=== PATIENT | male | born 1950 | race Caucasian/White ===

== ENCOUNTER 2016-12-25 16:07 | Inpatient (IN) ==
[2016-12-25 17:38] LABS: Red Blood Count 2.75 M/mcL (4.19-5.50)
[2016-12-25 17:39] LABS: Hematocrit 28.5 % (37.5-50.1); Hemoglobin 9.5 g/dL (12.9-16.9); Mean Corpuscular HGB Conc 33.3 g/dL (31.6-35.5); Mean Corpuscular Hemoglobin 34.5 pg (28.0-33.3); Mean Corpuscular Volume 103.6 fL (83.0-100.0); Mean Platelet Volume 10.2 fL (9.4-12.4); Platelet Count 150 K/mcL (140-400); Red Cell Distribution Width 19.1 % (11.5-14.5)
[2016-12-25 17:50] LABS: BUN/Creatinine Ratio 13 (6-26); Blood Urea Nitrogen 10 mg/dL (8-26); Calcium 9.6 mg/dL (8.6-10.8); Carbon Dioxide 36 mEq/L (19-29); Chloride 91 mEq/L (98-109); Glucose 116 mg/dL (70-99); Osmolality,Calculated 284 (280-300); Potassium 3.4 mEq/L (3.5-4.5); Sodium 137 mEq/L (136-145); eGFR For African Americans > 60 (> 60); eGFR For Non-African Americans > 60 (> 60)
[2016-12-25 18:09] LABS: Lymphocytes # 0.6 K/mcL (0.6-4.6); Monocytes # 0.6 K/mcL (0.0-1.3); Neutrophils # 30.7 K/mcL (1.6-8.9)
[2016-12-25 18:10] LABS: Anisocytosis 1+ (Not Present); Platelet Estimate Normal (Normal)
[2016-12-25] MEDS ORDERED: Vancomycin 1,000 MG in D5% in Water 250 ML IVPB ONE (18:24)
[2016-12-25] MEDS ORDERED: Azithromycin 500 MG in D5% in Water 250 ML IVPB ONE (18:26)
[2016-12-25] MEDS ORDERED: Cefepime HCl 2,000 MG in D5% in Water (Mini-Bag+) 100 ML IVPB STA (18:26)
--- NOTE | 2016-12-25 18:58 | Emergency Department Note ---
Disposition Clinical Impression: Community acquired pneumonia Disposition: Admitted As Inpatient Condition: Fair SOB HPI - General Chief Complaint: ED Shortness of Breath/Dyspnea Stated Complaint: SHEILA Time Seen by Provider: 12/25/16 17:51 Source: patient, family Mode of arrival: ambulatory Limitations: no limitations Nursing Notes Reviewed: Yes Vital Signs Reviewed: Yes - History of Present Illness 66-year-old male presents emergency Department with concerns of difficulty in breathing and increased dyspnea on exertion. Patient states that this feels different than his previous COPD exacerbations. Patient has a history of severe COPD and is now on 4 L of oxygen at home via nasal cannula at all times. Patient denies fever although he describes a generalized malaise. He is unable to walk more than 5-10 feet without becoming short of breath. Patient denies diaphoresis or nausea or vomiting. Patient denies recent injury. No recent changes in his medications although he did take a course of Ceftin air within the past week which did not improve his symptoms. Patient also finished a course of steroids 2 weeks ago for treatment of possible COPD exacerbation. He follows Dr. Reynoso for pulmonology. - Related Data Home Medications Medication Instructions Recorded Confirmed Albuterol Sulfate [Ventolin Hfa] 2 puff IH Q4H PRN 09/17/16 12/25/16 Budesonide/Formoterol 160/4.5 1 puff IH BID 09/17/16 12/25/16 [Symbicort 160/4.5] Calcium Gluconate [Calcium 1 tab PO DAILY 09/17/16 12/25/16 Gluconate] Carvedilol [Coreg] 12.5 mg PO BID 09/17/16 12/25/16 Citalopram Hydrobromide [Celexa] 40 mg PO DAILY 09/17/16 12/25/16 Furosemide [Lasix] 80 mg PO BID 09/17/16 12/25/16 Lisinopril 2.5 mg PO BID 09/17/16 12/25/16 Lovastatin [Mevacor] 20 mg PO HS 09/17/16 12/25/16 Multivitamin [Multivitamins] 1 each PO DAILY 09/17/16 12/25/16 Potassium Chloride [Klor-Con 10] 20 meq PO DAILY 09/17/16 12/25/16 Tiotropium [Spiriva] 18 mcg IH DAILY 09/17/16 12/25/16 diazePAM [Valium] 2.5 mg PO BID 09/17/16 12/25/16 Previous Rx's Medication Instructions Recorded Ipratropium/Albuterol Neb [Duoneb] 3 ml IH Q6HR #60 vial.neb 07/18/15 LORazepam [Ativan] 1 mg PO Q4HR PRN #30 tablet 09/17/16 Promethazine [Phenergan] 25 mg PO Q6HR PRN #60 tablet 09/17/16 GuaiFENesin Liq [Robitussin Liq] 10 ml PO TID PRN #400 mls 09/23/16 HYDROcodone/Acet 5/325 mg [[place] 1 tab PO Q4H PRN #60 tab 10/02/16 5-325 mg] Ranitidine HCl [Zantac] 150 mg PO DAILY #30 tablet 10/02/16 Mirtazapine [Remeron] 15 mg PO HS #30 tablet 10/20/16 Allergies Allergy/AdvReac Type Severity Reaction Status Date / Time codeine Allergy Itching Verified 12/01/16 08:52 All systems ED: reviewed and negative except as stated. Review of Systems: As Per HPI Constitutional: Reports: weakness. Denies: fever, chills Cardiovascular: Reports: dyspnea on exertion. Denies: chest pain, palpitations Respiratory: Reports: cough, dyspnea, wheezes. Denies: hemoptysis, stridor Gastrointestinal: Denies: abdominal pain, nausea, vomiting Genitourinary: Denies: urgency, dysuria Integumentary: Denies: rash, abrasion Neurological: Denies: headache, weakness Past Medical History - Past Medical History Attestation: Yes The following information was validated with the patient. Source: patient Medical history: Reports: cancer, CHF, COPD, diabetes, hyperlipidemia, hypertension Psychiatric history: Reports: no psych history - Social History Smoking Status: Former smoker Smokeless Tobacco Status: No Alcohol use: Reports: none, heavy Drug use: Reports: none Physical Exam - General Limitations: no limitations General appearance: alert - Head Head exam: normocephalic, normal inspection - ENT ENT exam: normal exam - Neck Neck exam: Present: normal inspection - Chest Chest inspection: Present: normal inspection - Respiratory Respiratory exam: Present: wheezes. Absent: respiratory distress, accessory muscle use - Cardiovascular Cardiovascular exam: Present: tachycardia - Abdominal Exam Abdominal exam: Present: soft, Non-Tender. Absent: tenderness, distention, guarding, rebound Course Vital Signs Temperature 98.2 F 12/25/16 16:45 Pulse Rate 103 12/25/16 16:45 Respiratory Rate 22 12/25/16 16:45 Blood Pressure 101/64 12/25/16 16:45 O2 Sat by Pulse Oximetry 96 12/25/16 16:45 Temperature 98.7 F 12/25/16 20:52 Pulse Rate 104 12/25/16 20:52 Respiratory Rate 20 12/25/16 20:52 Blood Pressure 105/61 12/25/16 20:52 O2 Sat by Pulse Oximetry 97 12/25/16 20:52 Oxygen Delivery Oxygen Delivery Nasal Cannula Shortness of Breath/Dyspnea - Medical Records Medical records reviewed: Yes I reviewed the patient's medical records. - Lab Data Lab results reviewed: Yes I reviewed the patient's lab results. Result diagrams: 12/25/16 17:31 12/25/16 17:31 Lab Results 12/25/16 12/25/16 12/25/16 Range/Units 17:31 17:31 17:31 WBC 32.0 H* D (4.3-11.1) K/mcL RBC 2.75 L (4.19-5.50) M/mcL Hgb 9.5 L (12.9-16.9) g/dL Hct 28.5 L (37.5-50.1) % MCV 103.6 H (83.0-100.0) fL MCH 34.5 H (28.0-33.3) pg MCHC 33.3 (31.6-35.5) g/dL RDW 19.1 H (11.5-14.5) % Plt Count 150 (140-400) K/mcL MPV 10.2 (9.4-12.4) fL Seg Neutrophils % 81.0 % Band Neutrophils % 15.0 H (0-4) % Lymphocytes % 2.0 % Monocytes % 2.0 % Neutrophils # 30.7 H (1.6-8.9) K/mcL Lymphocytes # 0.6 (0.6-4.6) K/mcL Monocytes # 0.6 (0.0-1.3) K/mcL Platelet Estimate Normal (Normal) Anisocytosis 1+ A (Not Present) Sodium 137 (136-145) mEq/L Potassium 3.4 L (3.5-4.5) mEq/L Chloride 91 L (98-109) mEq/L Carbon Dioxide 36 H (19-29) mEq/L BUN 10 (8-26) mg/dL Creatinine 0.80 (0.72-1.25) mg/dL Est GFR ( Amer) > 60 (> 60) Est GFR (Non-Af Amer) > 60 (> 60) BUN/Creatinine Ratio 13 (6-26) Glucose 116 H (70-99) mg/dL POC Glucose (58-89) Calculated Osmolality 284 (280-300) Calcium 9.6 (8.6-10.8) mg/dL Troponin I 0.00 (0-0.03) ng/mL B-Natriuretic Peptide (0-100) pg/mL 12/25/16 12/25/16 Range/Units 17:31 21:01 WBC (4.3-11.1) K/mcL RBC (4.19-5.50) M/mcL Hgb (12.9-16.9) g/dL Hct (37.5-50.1) % MCV (83.0-100.0) fL MCH (28.0-33.3) pg MCHC (31.6-35.5) g/dL RDW (11.5-14.5) % Plt Count (140-400) K/mcL MPV (9.4-12.4) fL Seg Neutrophils % % Band Neutrophils % (0-4) % Lymphocytes % % Monocytes % % Neutrophils # (1.6-8.9) K/mcL Lymphocytes # (0.6-4.6) K/mcL Monocytes # (0.0-1.3) K/mcL Platelet Estimate (Normal) Anisocytosis (Not Present) Sodium (136-145) mEq/L Potassium (3.5-4.5) mEq/L Chloride (98-109) mEq/L Carbon Dioxide (19-29) mEq/L BUN (8-26) mg/dL Creatinine (0.72-1.25) mg/dL Est GFR ( Amer) (> 60) Est GFR (Non-Af Amer) (> 60) BUN/Creatinine Ratio (6-26) Glucose (70-99) mg/dL POC Glucose 124 H (58-89) Calculated Osmolality (280-300) Calcium (8.6-10.8) mg/dL Troponin I (0-0.03) ng/mL B-Natriuretic Peptide 30 (0-100) pg/mL - Radiology Data Radiology results reviewed: Yes I reviewed the patient's radiology results. - EKG Data EKG attestation: Yes I reviewed and interpreted this EKG. EKG results narrative: Sinus tach, rate of 100. no STEMI
[2016-12-25] MEDS ORDERED: Acetaminophen 325 MG TABLET PO PRN (22:39)
[2016-12-25] MEDS ORDERED: Naloxone 0.4 MG/ML INJ IVP PRN (22:39)
[2016-12-25] MEDS ORDERED: Albuterol 2.5 MG/3 ML NEBULIZER IH PRN (22:39)
[2016-12-25] MEDS ORDERED: Vancomycin (wt based) 1,000 MG VIAL IVPB SCH (23:00)
[2016-12-25 23:20] LABS: INR 1.1; Prothrombin Time 11.3 Seconds (9.4-12.1)
[2016-12-25 23:22] LABS: Activated Partial Thrombo Time 24.9 Seconds (26.0-36.0)
--- NOTE | 2016-12-25 23:29 | Internal Med History&Physical ---
Date of Encounter: 12/25/16 Time of Encounter: 22:00 Assessment and Plan (1) Sepsis Current visit: Yes Status: Acute 1. Blood cultures have been drawn. 2. Will try to obtain sputum cultures. 3. Likely source is respiratory (pneumonia). 4. Will treat with IVF, IV antibiotics, and close monitoring. 5. Initial lactate is 1.1. Qualifiers: Sepsis type: sepsis due to unspecified organism Qualified Code(s): A41.9 - Sepsis, unspecified organism (2) Acute exacerbation of chronic obstructive pulmonary disease (COPD) Current visit: Yes Status: Acute 1. Will treat with scheduled and PRN aerosols. 2. Will initiate IV steroids and continue oxygen for support. 3. Continue home MD's as appropriate. 4. IV antibiotics as above. (3) Lung cancer Current visit: No Status: Acute 1. Outpatient follow up with oncology. 2. If necessary, will consult oncology inpatient. Qualifiers: Laterality: left Lung location: overlapping sites Qualified Code(s): C34.82 - Malignant neoplasm of overlapping sites of left bronchus and lung (4) DVT prophylaxis Current visit: Yes Status: Acute 1. Heparin SQ. Internal Medicine - H&P: HPI Chief complaint: cough; SOB Admitted From: Emergency Dept Plans for Post Hospital Care: Home History of present illness: Mr. Clemente is a 66 year old male who presents to the ER tonight with complaints of fevers, cough, and shortness of breath. He recently completed antibiotics as an outpatient for COPD exacerbation. However, he failed to improve and presents to ER with worsening symptoms. He has a history of lung cancer and has been followed by [facility]. He was just seen earlier this week and has declined from a respiratory status since then. He has had increasing oxygen requirement at home. Workup in the ER revealed patient to have significant leukocytosis, pneumonia, and findings consistent with sepsis. He was subsequently admitted to the hospitalist service. Upon my assessment of the patient, he feels a little better. He is coughing and wheezing. He denies any vomiting or diarrhea. He denies hemoptysis. He has had increased mucus production with his cough. He does admit to having had subjective fevers at home. He did not have a lactate ordered in the ER so I ordered one, and it was normal at 1.1. Given his lung cancer and hospital exposure, I'm treating him aggressively with IV antibiotics including vancomycin. He denies any ill contacts at home recently. Past Med Surg Social Fam HX - Past Medical History Attestation: Yes The following information was validated with the patient. 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) - Social History Smoking Status: Former smoker Smokeless Tobacco Status: No Alcohol use: none, heavy Drug use: none Current living situation: Home, With Family Activity Level: Independent ambulation Recent Out of Country Travel Within the Last 8 Weeks: No - Family History Mother Living Status: Age at : 38 Cause of : tumor in brain Father Living Status: Age at : 87 Cause of : blood clot in brain Internal Medicine - H&P: Meds Ipratropium/Albuterol Neb [Duoneb] 3 ml IH Q6HR #60 vial.neb 07/18/15 [Rx] Albuterol Sulfate [Ventolin Hfa] 2 puff IH Q4H PRN 09/17/16 [History] Budesonide/Formoterol 160/4.5 [Symbicort 160/4.5] 1 puff IH BID 09/17/16 [ History] Calcium Gluconate [Calcium Gluconate] 1 tab PO DAILY 09/17/16 [History] Carvedilol [Coreg] 12.5 mg PO BID 09/17/16 [History] Citalopram Hydrobromide [Celexa] 40 mg PO DAILY 09/17/16 [History] Furosemide [Lasix] 80 mg PO BID 09/17/16 [History] LORazepam [Ativan] 1 mg PO Q4HR PRN #30 tablet 09/17/16 [Rx] Lisinopril 2.5 mg PO BID 09/17/16 [History] Lovastatin [Mevacor] 20 mg PO HS 09/17/16 [History] Multivitamin [Multivitamins] 1 each PO DAILY 09/17/16 [History] Potassium Chloride [Klor-Con 10] 20 meq PO DAILY 09/17/16 [History] Promethazine [Phenergan] 25 mg PO Q6HR PRN #60 tablet 09/17/16 [Rx] Tiotropium [Spiriva] 18 mcg IH DAILY 09/17/16 [History] diazePAM [Valium] 2.5 mg PO BID 09/17/16 [History] GuaiFENesin Liq [Robitussin Liq] 10 ml PO TID PRN #400 mls 09/23/16 [Rx] HYDROcodone/Acet 5/325 mg [[place] 5-325 mg] 1 tab PO Q4H PRN #60 tab 10/02/16 [Rx ] Ranitidine HCl [Zantac] 150 mg PO DAILY #30 tablet 10/02/16 [Rx] Mirtazapine [Remeron] 15 mg PO HS #30 tablet 10/20/16 [Rx] 3 Allergy/AdvReac Type Severity Reaction Status Date / Time codeine Allergy Itching Verified 12/01/16 08:52 - Constitutional Constitutional: fever(s), malaise, weakness, no chills, no night sweats - EENT Eyes: no blurry vision, no change in vision Ears: no ear pain, no tinnitus Nose, mouth and throat: no nasal congestion, no sinus pressure, no sore throat - Cardiovascular Cardiovascular ROS IM: dyspnea, dyspnea on exertion, no chest pain, no palpitations, no paroxysmal nocturnal dyspnea - Respiratory Respiratory: cough, dyspnea, dyspnea on exertion, wheezing, chest congestion, excessive phlegm production, change in phlegm color, no hemoptysis - Gastrointestinal Gastrointestinal: no abdominal pain, no diarrhea, no hematemesis, no hematochezia, no melena, no nausea, no vomiting - Genitourinary Genitourinary ROS male: no dysuria, no flank pain, no hematuria - Musculoskeletal Musculoskeletal ROS IM: no arthralgias, no back pain - Integumentary Integumentary IM: no rash, no jaundice - Neurological Neurological ROS: no dizziness, no focal weakness, no frequent falls - Psychiatric Psychiatric: no anxiety, no depression - Endocrine Endocrine IM: no polydipsia, no polyuria - Allergic/Immunologic Allergic/Immunologic: wheezing, no GI upset with certain foods - Constitutional Vitals: Temp Pulse Resp BP Pulse Ox 98.7 F 104 20 105/61 97 12/25/16 20:52 12/25/16 20:52 12/25/16 20:52 12/25/16 20:52 12/25/16 20:52 General appearance: Present: cooperative, mild distress, A&O X 3, pleasant, answers questions appropriately - Head Head exam: Present: atraumatic, normal inspection - Expanded Head Exam Head exam expanded: Absent: abrasion, contusion, general tenderness - Eye Eye exam: Present: EOMI, PERRL. Absent: scleral icterus Pupils: Present: normal accommodation - ENT ENT exam: Present: mucous membranes dry, normal exam - Neck Neck exam general surgery: Present: full ROM, normal inspection, supple. Absent : tenderness - Respiratory Respiratory exam: Present: prolonged expiratory phase, rales (faint right basilar crackles), respiratory distress (mild to moderate), rhonchi, wheezes. Absent: chest wall tenderness, CTAB - Cardiovascular Cardiovascular exam: Present: distant heart sounds, RRR, +S1, +S2. Absent: diastolic murmur, JVD, systolic murmur - GI/Abdominal GI/Abdominal exam: Present: normal bowel sounds, soft. Absent: guarding, hepatomegaly, mass, splenomegaly, tenderness - Extremities Exam Extremities exam: Present: full ROM, normal capillary refill, warm, radial pulses palpable and symmetrical. Absent: joint swelling, pedal edema - Back Exam Back exam: Absent: CVA tenderness (L), CVA tenderness (R) - Neurological Exam Neurological exam: Present: alert, CN II-XII intact, oriented X3, no focal deficits - Psychiatric Psychiatric exam: Present: normal affect, normal mood - Skin Skin exam: Present: dry, warm. Absent: rash Internal Med - H&P Results - Labs CBC & Chem 7: 12/25/16 17:31 12/25/16 17:31 - Diagnostic Studies Chest x-ray Status: image reviewed by me (BELLA mass/nodule; ? RML infiltrate; AICD in place)
[2016-12-26] MEDS: Ipratropium/Albuterol Neb 3 ML IH SCH ×6 (00:29→20:27)
[2016-12-26 00:38] LABS: Hemoglobin 8.6 g/dL (12.9-16.9); Red Cell Distribution Width 18.6 % (11.5-14.5)
[2016-12-26 00:39] LABS: Hematocrit 25.9 % (37.5-50.1); Mean Corpuscular HGB Conc 33.2 g/dL (31.6-35.5); Mean Corpuscular Hemoglobin 34.4 pg (28.0-33.3); Mean Corpuscular Volume 103.6 fL (83.0-100.0); Mean Platelet Volume 10.3 fL (9.4-12.4); Platelet Count 141 K/mcL (140-400)
[2016-12-26] MEDS: 0.9 % Sodium Chloride w KCl 20 MEQ/1,000 ML MLS IVC SCH ×3 (00:46→21:22)
[2016-12-26] MEDS: methylPREDNISolone 125 MG/2 ML VIAL IVP SCH ×3 (00:47→17:06)
[2016-12-26 00:51] LABS: Alanine Aminotransferase 19 Units/L (0-55); Albumin 3.2 g/dL (3.5-5.0); Albumin/Globulin Ratio 0.9 (1.1-2.2); Alkaline Phosphatase 96 Units/L (38-126); Aspartate Amino Transferase 18 Units/L (5-34); BUN/Creatinine Ratio 17 (6-26); Bilirubin,Total 0.4 mg/dL (0.2-1.2); Blood Urea Nitrogen 14 mg/dL (8-26); Carbon Dioxide 36 mEq/L (19-29); Chloride 92 mEq/L (98-109); Globulin 3.6 g/dL (2.4-3.5); Glucose 140 mg/dL (70-99); Magnesium 1.6 mg/dL (1.6-2.6); Osmolality,Calculated 285 (280-300); Potassium 3.5 mEq/L (3.5-4.5); Sodium 136 mEq/L (136-145); Total Protein 6.8 g/dL (6.0-8.3); eGFR For African Americans > 60 (> 60); eGFR For Non-African Americans > 60 (> 60)
[2016-12-26 01:22] LABS: Lymphocytes # 1.7 K/mcL (0.6-4.6); Monocytes # 0.6 K/mcL (0.0-1.3); Neutrophils # 26.3 K/mcL (1.6-8.9)
[2016-12-26 01:31] LABS: Platelet Estimate Normal (Normal); Toxic Granulation Present (Not Present)
[2016-12-26] MEDS: GuaiFENesin Liq 200 MG/10 ML UDC PO PRN (01:35)
[2016-12-26] MEDS ORDERED: D5% in Water 1,000 ML IVC PRN (05:25)
[2016-12-26] MEDS ORDERED: Dextrose Gel 15 GM PO PRN ×2 (05:25)
[2016-12-26] MEDS ORDERED: *HR* Dextrose 50 % in Water (Syg) 50 ML SYRINGE IVP PRN (05:25)
[2016-12-26 05:53] LABS: Hemoglobin A1C 5.4 %
[2016-12-26] MEDS: *HR* Heparin 5,000 UNIT/ML VIAL SQ SCH ×2 (05:53→16:01)
[2016-12-26] MEDS: Piperacillin/Tazobactam 3.375 GM in D5% in Water 50 ML IVPB SCH ×2 (05:54→16:02)
[2016-12-26] MEDS: *HR* HYDROcodone/Acet 5/325 mg TABLET PO PRN (05:57)
[2016-12-26] MEDS: Tiotropium 18 MCG inhalation IH SCH (07:43)
[2016-12-26] MEDS: Budesonide/Formoterol 160/4.5 MDI IH SCH ×2 (07:43→20:27)
[2016-12-26] MEDS: Multivit/Ca/Min/Fe/FA 1 TAB TABLET PO SCH (08:35)
[2016-12-26] MEDS: Famotidine 20 MG TABLET PO SCH (08:35)
[2016-12-26] MEDS: diazePAM 5 MG TABLET PO SCH ×2 (08:35→21:21)
[2016-12-26] MEDS: Insulin LISPRO 300 UNITS/3 ML VIAL SQ SCH ×3 (08:38→17:05)
[2016-12-26] MEDS: Vancomycin 1,500 MG in D5% in Water 250 ML IVPB SCH ×2 (08:44→21:30)
[2016-12-26] MEDS: Levofloxacin 750 MG/150 ML 750 MG/150 ML BAG IVPB SCH (08:55)
--- NOTE | 2016-12-26 13:38 | Internal Med Progress Note ---
Date of Encounter: 12/26/16 Time of Encounter: 09:55 - Assessment and plan (1) Pneumonia Current Visit: Yes Status: Suspected Assessment and plan: Continue current IV antibiotics. Awaiting culture results. If cultures remain negative tomorrow, we will de-escalate antibiotics. High risk for complications. Qualifiers: Pneumonia type: due to methicillin-resistant Staphylococcus aureus (MRSA) Laterality: right Lung location: lower lobe of lung Qualified Code(s): J15.212 - Pneumonia due to Methicillin resistant Staphylococcus aureus (2) Acute exacerbation of chronic obstructive pulmonary disease (COPD) Current Visit: Yes Status: Acute Assessment and plan: Continue bronchodilators. We will start to taper steroids as patient is clinically feeling better. Currently on 3 L nasal cannula (3) Lung cancer Current Visit: Yes Status: Chronic Assessment and plan: Follow-up outpatient with oncology after discharge Qualifiers: Laterality: left Lung location: overlapping sites Qualified Code(s): C34.82 - Malignant neoplasm of overlapping sites of left bronchus and lung (4) Sepsis Current Visit: Yes Status: Suspected Assessment and plan: Continue IV antibiotics. Follow culture results. If cultures remain negative tomorrow, we will de-escalate antibiotics. Qualifiers: Sepsis type: methicillin resistant Staphylococcus aureus Qualified Code(s) : A41.02 - Sepsis due to Methicillin resistant Staphylococcus aureus (5) DVT prophylaxis Current Visit: Yes Status: Acute Assessment and plan: On subcutaneous heparin - Subjective Interval history: Clinically improving. Patient feels better today. Denies any fever or chills. No nausea or vomiting. Continues to have some cough and he gets short of breath when he coughs. Denies any chest pain. - Constitutional Vitals: Temp Pulse Resp BP Pulse Ox 97.6 F 89 16 97/63 97 12/26/16 11:25 12/26/16 11:25 12/26/16 11:25 12/26/16 11:25 12/26/16 11:25 General appearance: Present: cooperative, mild distress, A&O X 3, pleasant, obese, answers questions appropriately - Neck Neck exam general surgery: Present: supple, trachea midline. Absent: lymphadenopathy - Respiratory Respiratory exam: Present: prolonged expiratory phase, wheezes. Absent: accessory muscle use, rales, rhonchi - Cardiovascular Cardiovascular exam: Present: RRR, +S1, +S2. Absent: diastolic murmur, gallop, rubs, systolic murmur - GI/Abdominal GI/Abdominal exam: Present: normal bowel sounds, soft, no peritoneal signs. Absent: distended, tenderness - Extremities Exam Extremities exam: Present: warm, radial pulses palpable and symmetrical. Absent : calf tenderness, cyanotic, pedal edema - Neurological Exam Neurological exam: Present: alert, oriented X3, no focal deficits. Absent: facial droop, speech deficit Internal Medicine: Result - Labs CBC & Chem 7: 12/26/16 00:29 12/26/16 00:29 Labs: Short CBC 12/26/16 Range/Units 00:29 WBC 28.6 H (4.3-11.1) K/mcL Hgb 8.6 L (12.9-16.9) g/dL Hct 25.9 L (37.5-50.1) % Plt Count 141 (140-400) K/mcL Neutrophils # 26.3 H (1.6-8.9) K/mcL BMP 12/26/16 00:29 Sodium 136 Potassium 3.5 Chloride 92 L Carbon Dioxide 36 H BUN 14 Creatinine 0.84 Glucose 140 H Calcium 9.0 Liver Function 12/26/16 Range/Units 00:29 Total Bilirubin 0.4 (0.2-1.2) mg/dL AST 18 (5-34) Units/L ALT 19 (0-55) Units/L Alkaline Phosphatase 96 (38-126) Units/L Albumin 3.2 L (3.5-5.0) g/dL - ABG Interpretation ABG results: PT/INR, D-dimer PT 11.3 Seconds (9.4-12.1) 12/25/16 23:06 Consult Discharge Plan - Plan Referrals: Moise Vo DO [Primary Care Provider] -
[2016-12-26] MEDS: Mirtazapine 15 MG TABLET PO SCH (21:21)
[2016-12-27] MEDS: Ipratropium/Albuterol Neb 3 ML IH SCH ×6 (00:15→20:32)
[2016-12-27] MEDS: methylPREDNISolone 125 MG/2 ML VIAL IVP SCH ×2 (01:27→08:10)
[2016-12-27] MEDS: *HR* Heparin 5,000 UNIT/ML VIAL SQ SCH ×4 (01:27→20:23)
[2016-12-27] MEDS: GuaiFENesin Liq 200 MG/10 ML UDC PO PRN ×2 (01:45→20:24)
[2016-12-27] MEDS: *HR* HYDROcodone/Acet 5/325 mg TABLET PO PRN ×2 (01:46→20:21)
[2016-12-27] MEDS: Piperacillin/Tazobactam 3.375 GM in D5% in Water 50 ML IVPB SCH ×3 (01:49→09:55)
[2016-12-27 07:40] LABS: Hematocrit 24.2 % (37.5-50.1); Hemoglobin 7.9 g/dL (12.9-16.9); Mean Corpuscular HGB Conc 32.6 g/dL (31.6-35.5); Mean Corpuscular Hemoglobin 34.3 pg (28.0-33.3); Mean Corpuscular Volume 105.2 fL (83.0-100.0); Platelet Count 132 K/mcL (140-400); Red Cell Distribution Width 18.6 % (11.5-14.5)
[2016-12-27 07:52] LABS: BUN/Creatinine Ratio 18 (6-26); Blood Urea Nitrogen 15 mg/dL (8-26); Calcium 8.7 mg/dL (8.6-10.8); Carbon Dioxide 28 mEq/L (19-29); Chloride 102 mEq/L (98-109); Glucose 153 mg/dL (70-99); Osmolality,Calculated 290 (280-300); Sodium 138 mEq/L (136-145); eGFR For African Americans > 60 (> 60); eGFR For Non-African Americans > 60 (> 60)
[2016-12-27 08:02] LABS: Potassium 5.1 mEq/L (3.5-4.5)
[2016-12-27] MEDS: Budesonide/Formoterol 160/4.5 MDI IH SCH ×2 (08:06→20:33)
[2016-12-27 08:08] LABS: Lymphocytes # 0.5 K/mcL (0.6-4.6); Monocytes # 0.3 K/mcL (0.0-1.3); Neutrophils # 15.1 K/mcL (1.6-8.9)
[2016-12-27 08:09] LABS: Platelet Estimate Normal (Normal)
[2016-12-27] MEDS: Tiotropium 18 MCG inhalation IH SCH (08:09)
[2016-12-27] MEDS: Insulin LISPRO 300 UNITS/3 ML VIAL SQ SCH ×3 (08:10→16:33)
[2016-12-27] MEDS: Multivit/Ca/Min/Fe/FA 1 TAB TABLET PO SCH (08:10)
[2016-12-27] MEDS: diazePAM 5 MG TABLET PO SCH ×2 (08:10→20:22)
[2016-12-27] MEDS: Levofloxacin 750 MG/150 ML 750 MG/150 ML BAG IVPB SCH (08:11)
[2016-12-27] MEDS: Famotidine 20 MG TABLET PO SCH (08:11)
[2016-12-27] MEDS: Vancomycin 1,500 MG in D5% in Water 250 ML IVPB SCH (09:37)
[2016-12-27] MEDS: Fluticasone Propionate Nasal 50 MCG/SPRAY BOTTLE NS SCH (09:55)
[2016-12-27] MEDS ORDERED: Vancomycin 1,750 MG in D5% in Water 500 ML IVPB SCH (10:00)
--- NOTE | 2016-12-27 12:08 | Internal Med Progress Note ---
Date of Encounter: 12/27/16 Time of Encounter: 08:20 - Assessment and plan (1) Pneumonia Current Visit: Yes Status: Suspected Assessment and plan: Improving. Blood and sputum cultures show no growth. We will begin to de- escalate antibiotics and transition to oral antibiotics. Moderate risk for complications. Qualifiers: Pneumonia type: due to unspecified organism Laterality: right Lung location: lower lobe of lung Qualified Code(s): J18.1 - Lobar pneumonia, unspecified organism (2) Acute exacerbation of chronic obstructive pulmonary disease (COPD) Current Visit: Yes Status: Acute Assessment and plan: Clinically improving. Continue bronchodilators. We will taper steroids. (3) Lung cancer Current Visit: Yes Status: Chronic Assessment and plan: Follow-up outpatient with oncology. Qualifiers: Laterality: left Lung location: overlapping sites Qualified Code(s): C34.82 - Malignant neoplasm of overlapping sites of left bronchus and lung (4) Sepsis Current Visit: Yes Status: Resolved Assessment and plan: Sepsis has now resolved. Cultures have been negative. Qualifiers: Sepsis type: sepsis due to unspecified organism Qualified Code(s): A41.9 - Sepsis, unspecified organism (5) DVT prophylaxis Current Visit: Yes Status: Acute Assessment and plan: Continue subcutaneous heparin. (6) Sinusitis Current Visit: Yes Status: Acute Assessment and plan: Will treat symptomatically. Start on Flonase nasal spray. Qualifiers: Sinusitis location: maxillary Chronicity: subacute Qualified Code(s): J01.00 - Acute maxillary sinusitis, unspecified - Subjective Interval history: Patient continues to improve. She does however report some sinus pressure and congestion. Shortness of breath is improving. No wheezing reported today. No chest pain. Does have cough. - Constitutional Vitals: Temp Pulse Resp BP Pulse Ox 97.8 F 94 19 129/71 96 12/27/16 10:39 12/27/16 10:39 12/27/16 10:39 12/27/16 10:39 12/27/16 10:39 General appearance: Present: cooperative, mild distress, A&O X 3, pleasant, obese, answers questions appropriately - Respiratory Respiratory exam: Present: prolonged expiratory phase. Absent: accessory muscle use, rales, rhonchi, wheezes - Cardiovascular Cardiovascular exam: Present: RRR, +S1, +S2. Absent: diastolic murmur, gallop, rubs, systolic murmur - GI/Abdominal GI/Abdominal exam: Present: normal bowel sounds, soft, no peritoneal signs. Absent: distended, tenderness - Extremities Exam Extremities exam: Present: warm, radial pulses palpable and symmetrical. Absent : calf tenderness, cyanotic, pedal edema Internal Medicine: Result - Labs CBC & Chem 7: 12/27/16 07:04 12/27/16 07:04 Labs: Short CBC 12/27/16 Range/Units 07:04 WBC 15.9 H (4.3-11.1) K/mcL Hgb 7.9 L (12.9-16.9) g/dL Hct 24.2 L (37.5-50.1) % Plt Count 132 L (140-400) K/mcL Neutrophils # 15.1 H (1.6-8.9) K/mcL BMP 12/27/16 07:04 Sodium 138 Potassium 5.1 H D Chloride 102 Carbon Dioxide 28 BUN 15 Creatinine 0.83 Glucose 153 H Calcium 8.7 - ABG Interpretation ABG results: PT/INR, D-dimer PT 11.3 Seconds (9.4-12.1) 12/25/16 23:06 Consult Discharge Plan - Plan Referrals: Moise Vo DO [Primary Care Provider] -
[2016-12-27] MEDS ORDERED: Aminoglycoside Consult 1 EACH MC ONE (14:57)
[2016-12-27] MEDS: Mirtazapine 15 MG TABLET PO SCH (20:23)
[2016-12-28] MEDS: Ipratropium/Albuterol Neb 3 ML IH SCH ×5 (00:06→21:01)
[2016-12-28 04:12] LABS: Basophils % 0.3 %; Hematocrit 23.1 % (37.5-50.1); Hemoglobin 7.5 g/dL (12.9-16.9); Immature Granulocytes % 0.5 % (0-4); Lymphocytes # 1.1 K/mcL (0.6-4.6); Lymphocytes % 10.9 %; Mean Corpuscular HGB Conc 32.5 g/dL (31.6-35.5); Mean Corpuscular Hemoglobin 34.2 pg (28.0-33.3); Mean Corpuscular Volume 105.5 fL (83.0-100.0); Monocytes # 0.3 K/mcL (0.0-1.3); Monocytes % 3.2 %; Neutrophils # 8.7 K/mcL (1.6-8.9); Platelet Count 130 K/mcL (140-400); Red Blood Count 2.19 M/mcL (4.19-5.50); Red Cell Distribution Width 18.9 % (11.5-14.5); Segmented Neutrophils % 85.1 %
[2016-12-28 04:29] LABS: BUN/Creatinine Ratio 27 (6-26); Blood Urea Nitrogen 21 mg/dL (8-26); Calcium 8.8 mg/dL (8.6-10.8); Carbon Dioxide 29 mEq/L (19-29); Chloride 103 mEq/L (98-109); Glucose 101 mg/dL (70-99); Osmolality,Calculated 293 (280-300); Potassium 4.3 mEq/L (3.5-4.5); Sodium 140 mEq/L (136-145); eGFR For African Americans > 60 (> 60); eGFR For Non-African Americans > 60 (> 60)
[2016-12-28 04:43] LABS: Platelet Estimate Normal (Normal)
[2016-12-28] MEDS: *HR* Heparin 5,000 UNIT/ML VIAL SQ SCH ×3 (05:12→23:46)
[2016-12-28] MEDS: *HR* HYDROcodone/Acet 5/325 mg TABLET PO PRN (05:12)
--- NOTE | 2016-12-28 06:57 | Electrocardiograph Report ---
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
[2016-12-28] MEDS: Budesonide/Formoterol 160/4.5 MDI IH SCH ×2 (07:58→21:01)
[2016-12-28] MEDS: Tiotropium 18 MCG inhalation IH SCH (08:00)
[2016-12-28] MEDS: Insulin LISPRO 300 UNITS/3 ML VIAL SQ SCH ×3 (08:34→17:39)
[2016-12-28] MEDS: Famotidine 20 MG TABLET PO SCH (08:41)
[2016-12-28] MEDS: Multivit/Ca/Min/Fe/FA 1 TAB TABLET PO SCH (08:41)
[2016-12-28] MEDS: diazePAM 5 MG TABLET PO SCH ×2 (08:41→20:44)
[2016-12-28] MEDS: predniSONE 20 MG TABLET PO SCH (08:41)
[2016-12-28] MEDS: levoFLOXacin 750 MG TABLET PO SCH (08:41)
[2016-12-28 08:43] LABS: % Iron Saturation 93 % (20-55); Iron 233 mcg/dL (65-175); Transferrin 179 mg/dL (174-364)
[2016-12-28 09:04] LABS: Ferritin 791 ng/ml (22-275)
[2016-12-28 09:52] LABS: Vitamin B12 > 2000 pg/mL (213-816)
[2016-12-28] MEDS: Fluticasone Propionate Nasal 50 MCG/SPRAY BOTTLE NS SCH (10:02)
[2016-12-28] MEDS ORDERED: 0.9 % Sodium Chloride 250 ML ONE (10:32)
[2016-12-28] MEDS ORDERED: *HR* HYDROcodone/Acet 5/325 mg TABLET PO PRN (10:37)
[2016-12-28] MEDS: GuaiFENesin Liq 200 MG/10 ML UDC PO SCH ×2 (13:46→16:50)
--- NOTE | 2016-12-28 15:05 | Internal Med Progress Note ---
Date of Encounter: 12/28/16 Time of Encounter: 08:15 - Assessment and plan (1) Pneumonia Current Visit: Yes Status: Acute Assessment and plan: Continue levofloxacin. Complete 10 day antibiotic course. Today is day #3. Patient is clinically improving. Blood cultures were negative. Moderate risk for complications. Qualifiers: Pneumonia type: due to unspecified organism Laterality: right Lung location: lower lobe of lung Qualified Code(s): J18.1 - Lobar pneumonia, unspecified organism (2) Acute exacerbation of chronic obstructive pulmonary disease (COPD) Current Visit: Yes Status: Acute Assessment and plan: Continues to improve. We will transition to oral prednisone. Change bronchodilators to as needed. (3) Lung cancer Current Visit: Yes Status: Chronic Assessment and plan: Follow-up with oncology as outpatient. Patient is due to receive next dose of chemotherapy in 2 weeks. Qualifiers: Laterality: left Lung location: overlapping sites Qualified Code(s): C34.82 - Malignant neoplasm of overlapping sites of left bronchus and lung (4) Sepsis Current Visit: Yes Status: Resolved Assessment and plan: From pneumonia and COPD. Qualifiers: Sepsis type: sepsis due to unspecified organism Qualified Code(s): A41.9 - Sepsis, unspecified organism (5) DVT prophylaxis Current Visit: Yes Status: Acute Assessment and plan: On subcutaneous heparin (6) Sinusitis Current Visit: Yes Status: Acute Assessment and plan: Use Flonase nasal spray. On levofloxacin. Qualifiers: Sinusitis location: maxillary Chronicity: subacute Qualified Code(s): J01.00 - Acute maxillary sinusitis, unspecified (7) Anemia Current Visit: Yes Status: Acute Assessment and plan: Hemoglobin 7.5. Likely due to recent chemotherapy. We will transfuse 1 unit packed red blood cells. Qualifiers: Anemia type: other cause Other causes of anemia: other cause, not classified Qualified Code(s): D64.89 - Other specified anemias (8) Congestive heart failure Current Visit: Yes Status: Chronic Assessment and plan: Chronic diastolic dysfunction. Patient on Lasix at home. We will resume oral Lasix Qualifiers: Congestive heart failure type: diastolic Congestive heart failure chronicity: chronic Qualified Code(s): I50.32 - Chronic diastolic (congestive ) heart failure - Subjective Interval history: Patient is doing better today. Does have cough but breathing is improving. No chest pain. No dizziness. No palpitations. - Constitutional Vitals: Temp Pulse Resp BP Pulse Ox 98.5 F 73 18 108/65 95 12/28/16 14:20 12/28/16 14:20 12/28/16 14:20 12/28/16 14:20 12/28/16 10:27 General appearance: Present: cooperative, mild distress, A&O X 3, pleasant, obese, answers questions appropriately - Neck Neck exam general surgery: Present: supple, trachea midline. Absent: lymphadenopathy - Respiratory Respiratory exam: Present: prolonged expiratory phase. Absent: accessory muscle use, rales, rhonchi, wheezes - Cardiovascular Cardiovascular exam: Present: RRR, +S1, +S2. Absent: diastolic murmur, gallop, rubs, systolic murmur - GI/Abdominal GI/Abdominal exam: Present: normal bowel sounds, soft, no peritoneal signs. Absent: distended, tenderness - Extremities Exam Extremities exam: Present: warm, radial pulses palpable and symmetrical. Absent : calf tenderness, cyanotic, pedal edema - Neurological Exam Neurological exam: Present: alert, oriented X3, no focal deficits. Absent: facial droop, speech deficit Internal Medicine: Result - Labs CBC & Chem 7: 12/28/16 03:09 12/28/16 03:09 Labs: Short CBC 12/28/16 Range/Units 03:09 WBC 10.2 (4.3-11.1) K/mcL Hgb 7.5 L (12.9-16.9) g/dL Hct 23.1 L (37.5-50.1) % Plt Count 130 L (140-400) K/mcL Neutrophils # 8.7 (1.6-8.9) K/mcL BMP 12/28/16 03:09 Sodium 140 Potassium 4.3 Chloride 103 Carbon Dioxide 29 BUN 21 Creatinine 0.77 Glucose 101 H Calcium 8.8 - ABG Interpretation ABG results: PT/INR, D-dimer PT 11.3 Seconds (9.4-12.1) 12/25/16 23:06 Consult Discharge Plan - Plan Referrals: Moise Vo DO [Primary Care Provider] -
[2016-12-28] MEDS: Furosemide 40 MG TABLET PO SCH (16:48)
[2016-12-28] MEDS: Mirtazapine 15 MG TABLET PO SCH (20:44)
[2016-12-29] MEDS: GuaiFENesin Liq 200 MG/10 ML UDC PO SCH ×5 (02:23→22:25)
[2016-12-29 03:41] LABS: Mean Corpuscular HGB Conc 33.7 g/dL (31.6-35.5); Mean Corpuscular Hemoglobin 34.1 pg (28.0-33.3); Mean Corpuscular Volume 101.1 fL (83.0-100.0); Monocytes # 0.7 K/mcL (0.0-1.3); Platelet Count 140 K/mcL (140-400); Red Blood Count 2.67 M/mcL (4.19-5.50); Red Cell Distribution Width 20.4 % (11.5-14.5)
[2016-12-29 03:53] LABS: BUN/Creatinine Ratio 23 (6-26); Blood Urea Nitrogen 19 mg/dL (8-26); Calcium 9.1 mg/dL (8.6-10.8); Carbon Dioxide 34 mEq/L (19-29); Chloride 98 mEq/L (98-109); Glucose 151 mg/dL (70-99); Osmolality,Calculated 299 (280-300); Potassium 3.7 mEq/L (3.5-4.5); Sodium 142 mEq/L (136-145); eGFR For African Americans > 60 (> 60); eGFR For Non-African Americans > 60 (> 60)
[2016-12-29 03:57] LABS: Hemoglobin 9.1 g/dL (12.9-16.9)
[2016-12-29 04:03] LABS: Lymphocytes # 1.3 K/mcL (0.6-4.6); Neutrophils # 6.2 K/mcL (1.6-8.9)
[2016-12-29 04:04] LABS: Platelet Estimate Normal (Normal)
[2016-12-29] MEDS: Ipratropium/Albuterol Neb 3 ML IH SCH ×4 (04:09→21:36)
[2016-12-29] MEDS: *HR* Heparin 5,000 UNIT/ML VIAL SQ SCH ×3 (05:55→22:32)
[2016-12-29] MEDS: Furosemide 40 MG TABLET PO SCH ×2 (10:38→18:44)
[2016-12-29] MEDS: Insulin LISPRO 300 UNITS/3 ML VIAL SQ SCH ×3 (10:38→18:44)
[2016-12-29] MEDS: diazePAM 5 MG TABLET PO SCH ×2 (10:40→22:29)
[2016-12-29] MEDS: levoFLOXacin 750 MG TABLET PO SCH (10:40)
[2016-12-29] MEDS: Multivit/Ca/Min/Fe/FA 1 TAB TABLET PO SCH (10:40)
[2016-12-29] MEDS: predniSONE 20 MG TABLET PO SCH (10:40)
[2016-12-29] MEDS: Famotidine 20 MG TABLET PO SCH (10:41)
[2016-12-29] MEDS: Fluticasone Propionate Nasal 50 MCG/SPRAY BOTTLE NS SCH (10:42)
[2016-12-29] MEDS: Budesonide/Formoterol 160/4.5 MDI IH SCH ×2 (10:44→21:37)
[2016-12-29] MEDS: Tiotropium 18 MCG inhalation IH SCH (10:45)
--- NOTE | 2016-12-29 15:41 | Internal Med Progress Note ---
Date of Encounter: 12/29/16 Time of Encounter: 15:31 - Assessment and plan (1) Community acquired pneumonia Current Visit: Yes Status: Acute Assessment and plan: Continue Levaquin. Treat for a total of 10 days. Patient needs another day of monitoring, he still short of breath not at his baseline. He is afraid that if he goes home today he will have to return Qualifiers: Laterality: unspecified laterality Qualified Code(s): J18.9 - Pneumonia, unspecified organism (2) Acute exacerbation of chronic obstructive pulmonary disease (COPD) Current Visit: Yes Status: Acute Assessment and plan: By mouth prednisone. Bronchodilators as needed. (3) Neuroendocrine carcinoma of lung Current Visit: No Status: Acute Assessment and plan: Out Patient follow-up with oncology. (4) Sepsis Current Visit: Yes Status: Resolved Assessment and plan: From pneumonia and COPD. Qualifiers: Sepsis type: sepsis due to unspecified organism Qualified Code(s): A41.9 - Sepsis, unspecified organism (5) Need for home health care Current Visit: Yes Status: Acute - Subjective Interval history: Acute events overnight. She says he does feel breathing is better. He is somewhat concerned that he has still short of breath. He denies any fevers or chills. Admits to cough with still productive of phlegm - Constitutional Vitals: Temp Pulse Resp BP Pulse Ox 98.1 F 104 20 119/71 92 12/29/16 14:00 12/29/16 14:00 12/29/16 14:00 12/29/16 14:00 12/29/16 14:00 General appearance: Present: cooperative, mild distress, A&O X 3, pleasant, obese, answers questions appropriately Exam: - Neck Neck exam general surgery: Present: supple, trachea midline. Absent: lymphadenopathy - Respiratory Respiratory exam: Present: prolonged expiratory phase. Absent: accessory muscle use, rales, rhonchi, wheezes - Cardiovascular Cardiovascular exam: Present: RRR, +S1, +S2. Absent: diastolic murmur, gallop, rubs, systolic murmur - GI/Abdominal GI/Abdominal exam: Present: normal bowel sounds, soft, no peritoneal signs. Absent: distended, tenderness - Extremities Exam Extremities exam: Present: warm, radial pulses palpable and symmetrical. Absent : calf tenderness, cyanotic, pedal edema - Neurological Exam Neurological exam: Present: alert, oriented X3, no focal deficits. Absent: facial droop, speech deficit Internal Medicine: Result - Labs CBC & Chem 7: 12/29/16 03:03 12/29/16 03:03 Labs: Short CBC 12/29/16 Range/Units 03:03 WBC 8.1 (4.3-11.1) K/mcL Hgb 9.1 L D (12.9-16.9) g/dL Hct 27.0 L (37.5-50.1) % Plt Count 140 (140-400) K/mcL Neutrophils # 6.2 (1.6-8.9) K/mcL BMP 12/29/16 03:03 Sodium 142 Potassium 3.7 Chloride 98 Carbon Dioxide 34 H BUN 19 Creatinine 0.84 Glucose 151 H Calcium 9.1 - ABG Interpretation ABG results: PT/INR, D-dimer PT 11.3 Seconds (9.4-12.1) 12/25/16 23:06 Consult Discharge Plan - Plan Referrals: Moise Vo DO [Primary Care Provider] -
[2016-12-29] MEDS: Acetylcysteine 10% 2 ML INHSOL IH SCH ×2 (16:09→21:37)
[2016-12-29] MEDS: Mirtazapine 15 MG TABLET PO SCH (22:30)
[2016-12-30 03:44] LABS: Hematocrit 26.9 % (37.5-50.1); Hemoglobin 8.8 g/dL (12.9-16.9); Mean Corpuscular HGB Conc 32.7 g/dL (31.6-35.5); Mean Corpuscular Hemoglobin 33.2 pg (28.0-33.3); Mean Corpuscular Volume 101.5 fL (83.0-100.0); Mean Platelet Volume 10.8 fL (9.4-12.4); Platelet Count 130 K/mcL (140-400); Red Blood Count 2.65 M/mcL (4.19-5.50); Red Cell Distribution Width 19.1 % (11.5-14.5)
[2016-12-30 03:52] LABS: BUN/Creatinine Ratio 26 (6-26); Blood Urea Nitrogen 21 mg/dL (8-26); Calcium 8.7 mg/dL (8.6-10.8); Carbon Dioxide 33 mEq/L (19-29); Chloride 96 mEq/L (98-109); Glucose 110 mg/dL (70-99); Osmolality,Calculated 294 (280-300); Sodium 140 mEq/L (136-145); eGFR For African Americans > 60 (> 60); eGFR For Non-African Americans > 60 (> 60)
[2016-12-30 03:53] LABS: Potassium 3.9 mEq/L (3.5-4.5)
[2016-12-30] MEDS: Ipratropium/Albuterol Neb 3 ML IH SCH ×2 (04:00→10:55)
[2016-12-30] MEDS: Acetylcysteine 10% 2 ML INHSOL IH SCH (04:00)
[2016-12-30 04:46] LABS: Neutrophils # 4.3 K/mcL (1.6-8.9)
[2016-12-30 04:47] LABS: Anisocytosis 2+ (Not Present); Hypochromasia Present (Not Present); Macrocytosis Present (Not Present); Platelet Estimate Slight Decrease (Normal)
[2016-12-30] MEDS: *HR* Heparin 5,000 UNIT/ML VIAL SQ SCH (04:54)
[2016-12-30] MEDS: GuaiFENesin Liq 200 MG/10 ML UDC PO SCH (04:56)
[2016-12-30] MEDS: Furosemide 40 MG TABLET PO SCH (09:21)
[2016-12-30] MEDS: Famotidine 20 MG TABLET PO SCH (09:22)
[2016-12-30] MEDS: diazePAM 5 MG TABLET PO SCH (09:22)
[2016-12-30] MEDS: levoFLOXacin 750 MG TABLET PO SCH (09:22)
[2016-12-30] MEDS: predniSONE 20 MG TABLET PO SCH (09:22)
[2016-12-30] MEDS: Multivit/Ca/Min/Fe/FA 1 TAB TABLET PO SCH (09:22)
[2016-12-30] MEDS: Insulin LISPRO 300 UNITS/3 ML VIAL SQ SCH (09:24)
[2016-12-30] MEDS: Fluticasone Propionate Nasal 50 MCG/SPRAY BOTTLE NS SCH (09:28)
--- NOTE | 2016-12-30 10:28 | Discharge Summary ---
Date of Encounter: 12/30/16 Time of Encounter: 10:20 - Discharge Diagnosis (1) Community acquired pneumonia Priority: Primary Status: Acute Qualifiers: Laterality: unspecified laterality Qualified Code(s): J18.9 - Pneumonia, unspecified organism (2) Acute exacerbation of chronic obstructive pulmonary disease (COPD) Priority: Secondary Status: Acute (3) Neuroendocrine carcinoma of lung Priority: Secondary Status: Acute (4) Sepsis Priority: Secondary Status: Resolved Qualifiers: Sepsis type: sepsis due to unspecified organism Qualified Code(s): A41.9 - Sepsis, unspecified organism (5) Need for home health care Priority: Secondary Status: Acute - Discharge Medications Prescriptions: Fluticasone Propionate Nasal [Flonase] 50 mcg NS DAILY #1 bottle levoFLOXacin [Levaquin] 750 mg PO DAILY #8 tablet predniSONE [PredniSONE] 40 mg PO DAILY #3 tablet Home Medications: Ipratropium/Albuterol Neb [Duoneb] 3 ml IH Q6HR #60 vial.neb 07/18/15 [Rx] Albuterol Sulfate [Ventolin Hfa] 2 puff IH Q4H PRN 09/17/16 [History] Budesonide/Formoterol 160/4.5 [Symbicort 160/4.5] 1 puff IH BID 09/17/16 [ History] Calcium Gluconate 1 tab PO DAILY 09/17/16 [History] Carvedilol [Coreg] 12.5 mg PO BID 09/17/16 [History] Citalopram Hydrobromide [Celexa] 40 mg PO DAILY 09/17/16 [History] Furosemide [Lasix] 80 mg PO BID 09/17/16 [History] LORazepam [Ativan] 1 mg PO Q4HR PRN #30 tablet 09/17/16 [Rx] Lisinopril 2.5 mg PO BID 09/17/16 [History] Lovastatin [Mevacor] 20 mg PO HS 09/17/16 [History] Multivitamin [Multivitamins] 1 each PO DAILY 09/17/16 [History] Potassium Chloride [Klor-Con 10] 20 meq PO DAILY 09/17/16 [History] Promethazine [Phenergan] 25 mg PO Q6HR PRN #60 tablet 09/17/16 [Rx] Tiotropium [Spiriva] 18 mcg IH DAILY 09/17/16 [History] diazePAM [Valium] 2.5 mg PO BID 09/17/16 [History] GuaiFENesin Liq [Robitussin Liq] 10 ml PO TID PRN #400 mls 09/23/16 [Rx] HYDROcodone/Acet 5/325 mg [[place] 5-325 mg] 1 tab PO Q4H PRN #60 tab 10/02/16 [Rx ] Ranitidine HCl [Zantac] 150 mg PO DAILY #30 tablet 10/02/16 [Rx] Mirtazapine [Remeron] 15 mg PO HS #30 tablet 10/20/16 [Rx] Fluticasone Propionate Nasal [Flonase] 50 mcg NS DAILY #1 bottle 12/30/16 [Rx] GuaiFENesin ER [Mucinex] 600 mg PO BID #20 tbbp.12hr 12/30/16 [Rx] levoFLOXacin [Levaquin] 750 mg PO DAILY #8 tablet 12/30/16 [Rx] predniSONE [PredniSONE] 40 mg PO DAILY #3 tablet 12/30/16 [Rx] Allergies/Adverse Reactions: 3 Allergy/AdvReac Type Severity Reaction Status Date / Time codeine Allergy Itching Verified 12/01/16 08:52 Date of admission: 12/25/16 22:39 Primary care physician: Erlin Fitzpatrick Consults: 12/25/16 22:52 Consult to Shift Mgr [CONS] Routine Reason for SW Consult: Pt request 12/27/16 10:29 Consult to Occupational Therapy [CONS] Routine Comment: Evaluate, develop and implement POC Reason for Consult: weakness, unsteady gait at times. Consult to Physical Therapy [CONS] Routine Comment: Evaluate, develop and implement POC Reason for Consult: Weakness, unsteady gate at times. - Patient Status Disposition: Home Health Service Condition: Fair Functional capacity at discharge: independent ambulation Overall status at discharge: patient is progressing back to baseline - Discharge Instructions Follow Up With: Moise Vo DO [Primary Care Provider] - - Diet and Activity Activity: increase activity as tolerated Diet: advance to your usual diet Hospital course: Mr. Clemente is a 66 year old male who presents to the [facility] with complaints of fevers, cough, and shortness of breath. He recently completed antibiotics as an outpatient for COPD exacerbation. However, he failed to improve and presents to ER with worsening symptoms. He has a history of lung cancer and has been followed by [facility]. He was just seen earlier this week and has declined from a respiratory status since then. He has had increasing oxygen requirement at home. Workup in the ER revealed patient to have significant leukocytosis, pneumonia, and findings consistent with sepsis. He was subsequently admitted to the hospitalist service. He was empirically started on Vanc/Cefepime. Patient was clinically improving. Was hemodynamically stable. He was descalated to Levaquin. Blood cultures and sputum cultures were no growth as of discharge. He stated that his breathing is now at his baseline. He was discharged home to complete total of 10 days Levaquin therapy. Prednisone 40 mg to complete 5 day burst. Mucinex and flonase for mucus buildup. - Time Spent with Patient Total time spent providing and/or coordinating discharge services: Less than 30 minutes - Constitutional Vitals: Temp Pulse Resp BP Pulse Ox 98.8 F 82 16 115/78 96 12/30/16 07:37 12/30/16 07:37 12/30/16 07:37 12/30/16 07:37 12/30/16 07:37 General appearance: Present: cooperative, mild distress, A&O X 3, pleasant, obese, answers questions appropriately Exam: - Neck Neck exam general surgery: Present: supple, trachea midline. Absent: lymphadenopathy - Respiratory Respiratory exam: Present: prolonged expiratory phase, wheezes. Absent: accessory muscle use, rales, rhonchi - Cardiovascular Cardiovascular exam: Present: RRR, +S1, +S2. Absent: diastolic murmur, gallop, rubs, systolic murmur - GI/Abdominal GI/Abdominal exam: Present: normal bowel sounds, soft, no peritoneal signs. Absent: distended, tenderness - Extremities Exam Extremities exam: Present: warm, radial pulses palpable and symmetrical. Absent : calf tenderness, cyanotic, pedal edema - Neurological Exam Neurological exam: Present: alert, oriented X3, no focal deficits. Absent: facial droop, speech deficit
[2016-12-30 10:54] VITALS: BP 99/57
[2016-12-30] MEDS: Budesonide/Formoterol 160/4.5 MDI IH SCH (10:55)
[2016-12-30] MEDS: Tiotropium 18 MCG inhalation IH SCH (10:55)
--- NOTE | 2016-12-30 11:03 | Physician Discharge Referral ---
Home Health/Hosp Referral Info Transfer to: Home Health Provider in Charge Post Discharge: PCP - Diagnosis (1) Community acquired pneumonia Priority: Primary Status: Acute (2) Acute exacerbation of chronic obstructive pulmonary disease (COPD) Priority: Secondary Status: Acute (3) Neuroendocrine carcinoma of lung Priority: Secondary Status: Acute (4) Sepsis Priority: Secondary Status: Resolved (5) Need for home health care Priority: Secondary Status: Acute - Respiratory Orders Smoking Cessation: Smoking cessation has been advised. For more information, call the [place] [employer] Quit Line at 2-312-IISY-NOW. - Diet/Nutrition Diet/Nutrition Orders: No Added Salt (DANNY), Cardiac, No Concentrated Sweets - Activity Activity Orders: Up ad carloz - Services Needed Following services are medically necessary services: Physical Therapy, Occupational Therapy - Transfer Medications Prescriptions: Fluticasone Propionate Nasal [Flonase] 50 mcg NS DAILY #1 bottle GuaiFENesin ER [Mucinex] 600 mg PO BID #20 tbbp.12hr levoFLOXacin [Levaquin] 750 mg PO DAILY #8 tablet predniSONE [PredniSONE] 40 mg PO DAILY #3 tablet Home Medications: Ipratropium/Albuterol Neb [Duoneb] 3 ml IH Q6HR #60 vial.neb 07/18/15 [Rx] Albuterol Sulfate [Ventolin Hfa] 2 puff IH Q4H PRN 09/17/16 [History] Budesonide/Formoterol 160/4.5 [Symbicort 160/4.5] 1 puff IH BID 09/17/16 [ History] Calcium Gluconate 1 tab PO DAILY 09/17/16 [History] Carvedilol [Coreg] 12.5 mg PO BID 09/17/16 [History] Citalopram Hydrobromide [Celexa] 40 mg PO DAILY 09/17/16 [History] Furosemide [Lasix] 80 mg PO BID 09/17/16 [History] LORazepam [Ativan] 1 mg PO Q4HR PRN #30 tablet 09/17/16 [Rx] Lisinopril 2.5 mg PO BID 09/17/16 [History] Lovastatin [Mevacor] 20 mg PO HS 09/17/16 [History] Multivitamin [Multivitamins] 1 each PO DAILY 09/17/16 [History] Potassium Chloride [Klor-Con 10] 20 meq PO DAILY 09/17/16 [History] Promethazine [Phenergan] 25 mg PO Q6HR PRN #60 tablet 09/17/16 [Rx] Tiotropium [Spiriva] 18 mcg IH DAILY 09/17/16 [History] diazePAM [Valium] 2.5 mg PO BID 09/17/16 [History] GuaiFENesin Liq [Robitussin Liq] 10 ml PO TID PRN #400 mls 09/23/16 [Rx] HYDROcodone/Acet 5/325 mg [[place] 5-325 mg] 1 tab PO Q4H PRN #60 tab 10/02/16 [Rx ] Ranitidine HCl [Zantac] 150 mg PO DAILY #30 tablet 10/02/16 [Rx] Mirtazapine [Remeron] 15 mg PO HS #30 tablet 10/20/16 [Rx] Fluticasone Propionate Nasal [Flonase] 50 mcg NS DAILY #1 bottle 12/30/16 [Rx] GuaiFENesin ER [Mucinex] 600 mg PO BID #20 tbbp.12hr 12/30/16 [Rx] levoFLOXacin [Levaquin] 750 mg PO DAILY #8 tablet 12/30/16 [Rx] predniSONE [PredniSONE] 40 mg PO DAILY #3 tablet 12/30/16 [Rx] Allergies/Adverse Reactions: 3 Allergy/AdvReac Type Severity Reaction Status Date / Time codeine Allergy Itching Verified 12/01/16 08:52 Certification: Further, I certify that my clinical findings support that this patient is homebound (i.e. absences from home require considerable and taxing effort and are for medical reasons or mosque services or infrequently or short duration when for other reasons) because: Homebound Reason: Severity of cardiac or pulmonary status limits activity tolerance Attestation: My signature below is to certify that this patient is under my care and that I, or nurse practitioner, or a physician's zoning assistant working with me, has a face-to -face encounter with this patient.
[2016-12-30] MEDS: 0.9 % Sodium Chloride w KCl 20 MEQ/1,000 ML MLS IVC SCH (11:07)
== END 2016-12-30 14:58 | disposition home health service (06) | DRG 871 ==
LOC: EMEROO 16:07 → 3ANU 16:07 → SUATTDRO 22:39
PROVIDERS: ADMIT Internal Medicine; ATTEND Student in an Organized Health Care Education/Training Program

== ENCOUNTER 2017-06-30 17:14 | Inpatient (IN) ==
[~2017-06-30 17:14] MED LIST: Aminoglycoside Consult 1 EACH MC ONE
[2017-06-30] MEDS ORDERED: Levofloxacin 750 MG/150 ML 750 MG/150 ML BAG IVPB ONE (17:27)
[2017-06-30] MEDS ORDERED: Piperacillin/Tazobactam 3.375 GM in 0.9 % Sodium Chloride Mini Bag 100 ML IVPB ONE (17:27)
--- NOTE | 2017-06-30 17:33 | Emergency Department Note ---
Disposition Clinical Impression: Acute exacerbation of chronic obstructive airways disease, Acute respiratory failure with hypoxia, NSTEMI (non-ST elevated myocardial infarction) Pneumonia Qualifiers: Pneumonia type: due to unspecified organism Laterality: unspecified laterality Lung location: unspecified part of lung Qualified Code(s): J18.9 - Pneumonia, unspecified organism Sepsis Qualifiers: Sepsis type: sepsis due to unspecified organism Qualified Code(s): A41.9 - Sepsis, unspecified organism Disposition: Admitted As Inpatient Referrals: Moise Vo DO [Primary Care Provider] - Forms: ED Satisfaction Letter SOB HPI - General Chief Complaint: ED Shortness of Breath/Dyspnea Stated Complaint: SHEILA Time Seen by Provider: 06/30/17 17:17 Source: patient Mode of arrival: EMS Limitations: no limitations Nursing Notes Reviewed: Yes Vital Signs Reviewed: Yes - History of Present Illness 66 yo M c PMHx of 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 Patient reports dyspnea became worse today. Per family Sats dropped into the 70s today prompting call to EMS. Patient reports family has had recent upper respiratory illness. Patient was recently admitted to [facility] after transfer from our ED in May. Patient is currently between chemo courses. He reports productive cough with yellow sputum. He denies fever, N, V, D, Chest Pain, abdominal pain. Pt Subjective Complaint: shortness of breath Onset (ago): hour(s) Severity: moderate Consistency/Duration: constant Known history of: COPD, other (Lung CA) Associated symptoms: Reports: denies other symptoms. Denies: chest pain, fever , nausea/vomiting Treatment prior to arrival: oxygen Cough present: Yes Cough Description: Productive Sputum production: Yes Sputum Color: Yellow - Related Data Home oxygen amount: 4 liters Home Medications Medication Instructions Recorded Confirmed Albuterol Sulfate [Ventolin Hfa] 2 puff IH Q4H PRN 09/17/16 06/30/17 Budesonide/Formoterol 160/4.5 1 puff IH BID 09/17/16 06/30/17 [Symbicort 160/4.5] Calcium Gluconate 1 tab PO DAILY 09/17/16 06/30/17 Carvedilol [Coreg] 12.5 mg PO BID 09/17/16 06/30/17 Citalopram Hydrobromide [Celexa] 40 mg PO DAILY 09/17/16 06/30/17 Furosemide [Lasix] 80 mg PO BID 09/17/16 06/30/17 Lisinopril 2.5 mg PO BID 09/17/16 06/30/17 Lovastatin [Mevacor] 20 mg PO HS 09/17/16 06/30/17 Multivitamin [Multivitamins] 1 each PO DAILY 09/17/16 06/30/17 Potassium Chloride [Klor-Con 10] 20 meq PO DAILY 09/17/16 06/30/17 Dexamethasone [Decadron] 4 mg PO AD 06/10/17 06/30/17 LevETIRAcetam [Keppra] 500 mg PO BID 06/10/17 06/30/17 Previous Rx's Medication Instructions Recorded Ipratropium/Albuterol Neb [Duoneb] 3 ml IH Q6HR #60 vial.neb 07/18/15 Promethazine [Phenergan] 25 mg PO Q6HR PRN #60 tablet 09/17/16 Fluticasone Propionate Nasal 50 mcg NS DAILY #1 bottle 12/30/16 [Flonase] Mirtazapine [Remeron] 15 mg PO HS #90 tablet 04/29/17 Ranitidine HCl [Zantac] 150 mg PO DAILY #90 tablet 04/29/17 Docusate [Colace] 100 mg PO BID #60 capsule 06/10/17 HYDROcodone/Acet 5/325 mg [[place] 1 tab PO Q4H PRN 30 Days #60 tab 06/10/17 5-325 mg] Allergies Allergy/AdvReac Type Severity Reaction Status Date / Time codeine Allergy Itching Verified 06/30/17 20:45 Review of Systems: As Per HPI Past Medical History - Past Medical History Medical history: Reports: cancer, CHF, COPD, diabetes, hyperlipidemia, hypertension Surgical history: Reports: pacemaker/AICD, other (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; lung 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) Psychiatric history: Reports: no psych history - Social History Smoking Status: Current every day smoker Smokeless Tobacco Status: No Alcohol use: Reports: none Drug use: Reports: none Physical Exam - General Limitations: no limitations General appearance: alert, in no apparent distress - Head Head exam: atraumatic, normocephalic - Eye Eye exam: Present: PERRL, EOMI - ENT ENT exam: mucous membranes moist - Neck Neck exam: Present: full ROM, trachea midline - Chest Chest inspection: Present: symmetric chest wall rise, tenderness - Respiratory Respiratory exam: Present: wheezes, other (rhoncchi throughout) - Cardiovascular Cardiovascular exam: Present: tachycardia, normal heart sounds - Abdominal Exam Abdominal exam: Present: soft, Non-Tender, normal bowel sounds - Extremities Exam Extremities exam: Present: full ROM, pedal edema (trace) - Neurological Exam Neurological exam: Present: alert, oriented X3 - Psychiatric Psychiatric exam: Present: normal affect, normal mood - Skin Skin exam: Present: warm, dry Course - Reevaluation(s) Reevaluation #1: trop 0.08 K 2.9 Will give patient ASA and 40 meq of K. Time: 18:54 Reevaluation #2: Will start patient on BiPAP. He is still sating well, and not overly tachypnic, but concern for possibly fatiguing and respiratory status so will trial BiPAP. Time: 19:29 - Consultations Consultation #1: Discussed case with manager contracting hospitalist. He agreed to accept the patient and said he would come down and examine the patient. Vital Signs Temperature 97.7 F 06/30/17 17:20 Pulse Rate 122 06/30/17 17:20 Respiratory Rate 26 06/30/17 17:20 Blood Pressure 107/75 06/30/17 17:20 O2 Sat by Pulse Oximetry 99 06/30/17 17:20 Temperature 97.7 F 06/30/17 17:20 Pulse Rate 122 06/30/17 17:20 Respiratory Rate 27 06/30/17 20:04 Blood Pressure 107/75 06/30/17 17:20 O2 Sat by Pulse Oximetry 97 06/30/17 20:04 Oxygen Delivery Oxygen Delivery Non Rebreather Mask Shortness of Breath/Dyspnea - MDM Narrative Medical decision making narrative: Patient meets Sepsis criteria Will check CXR, Basic lab work. Started on broad spectrum abx trop mildly positive ASA given. Will require admission. - Lab Data Result diagrams: 06/30/17 19:34 06/30/17 18:10 Lab Results 06/30/17 06/30/17 06/30/17 Range/Units 18:05 18:10 18:10 WBC (4.3-11.1) K/mcL RBC (4.19-5.50) M/mcL Hgb (12.9-16.9) g/dL Hct (37.5-50.1) % MCV (83.0-100.0) fL MCH (28.0-33.3) pg MCHC (31.6-35.5) g/dL RDW (11.5-14.5) % Plt Count (140-400) K/mcL MPV (9.4-12.4) fL Immature Gran % (0-4) % Seg Neutrophils % % Lymphocytes % % Monocytes % % Eosinophils % % Basophils % % Neutrophils # (1.6-8.9) K/mcL Lymphocytes # (0.6-4.6) K/mcL Monocytes # (0.0-1.3) K/mcL Eosinophils # (0.0-0.6) K/mcL Basophils # (0.0-0.2) K/mcL Nucleated RBCs/100 WBC (0) /100 WBC VBG pH (7.32-7.42) pH Units VBG pCO2 (41-51) mmHg VBG pO2 (25-50) mmHg VBG HCO3 (21-27) mEq/L Sodium 140 (136-145) mEq/L Potassium 2.9 L (3.5-5.1) mEq/L Chloride 87 L (98-107) mEq/L Carbon Dioxide 43 H* (23-29) mEq/L BUN 16 (8-23) mg/dL Creatinine 0.61 L (0.70-1.30) mg/dL Est GFR ( Amer) > 60 (> 60) Est GFR (Non-Af Amer) > 60 (> 60) BUN/Creatinine Ratio 26 (6-26) Glucose 190 H (70-105) mg/dL Calculated Osmolality 296 (280-300) Lactic Acid 0.8 (0.5-2.2) mmol/L Calcium 8.8 (8.6-10.3) mg/dL Phosphorus 3.9 (2.7-4.5) mg/dL Magnesium 1.8 (1.6-2.6) mg/dL Total Bilirubin 0.4 (0.3-1.0) mg/dL Direct Bilirubin 0.1 (0.0-0.2) mg/dL Indirect Bilirubin 0.3 (0.0-1.2) mg/dL AST 19 (13-39) Units/L ALT 23 (7-52) Units/L Alkaline Phosphatase 55 (34-104) Units/L Troponin I 0.08 H* (< 0.04) ng/mL B-Natriuretic Peptide (Less than 100) pg/mL Serum Total Protein 6.4 (6.4-8.9) g/dL Albumin 3.6 (3.5-5.7) g/dL Globulin 2.8 (2.4-3.5) g/dL Albumin/Globulin Ratio 1.3 (1.1-2.2) Urine Color (Yellow) Urine Clarity (Clear) Urine pH (5.0-8.0) pH Units Ur Specific [place] (1.010-1.025) Urine Protein (Neg-Trace) mg/dL Urine Glucose (UA) (Normal) mg/dL Urine Ketones (Negative) mg/dL Urine Blood (Negative) Urine Nitrite (Negative) Urine Bilirubin (Negative) Urine Urobilinogen (Normal) mg/dL Ur Leukocyte Esterase (Negative) Ur Culture Indicated? (NO) Specimen Rejected Clotted 06/30/17 06/30/17 06/30/17 Range/Units 18:10 18:52 19:34 WBC 8.5 (4.3-11.1) K/mcL RBC 2.77 L (4.19-5.50) M/mcL Hgb 9.7 L (12.9-16.9) g/dL Hct 28.4 L (37.5-50.1) % MCV 102.5 H (83.0-100.0) fL MCH 35.0 H (28.0-33.3) pg MCHC 34.2 (31.6-35.5) g/dL RDW 13.5 (11.5-14.5) % Plt Count 126 L (140-400) K/mcL MPV 9.7 (9.4-12.4) fL Immature Gran % 1.4 (0-4) % Seg Neutrophils % 68.5 % Lymphocytes % 21.6 % Monocytes % 7.9 % Eosinophils % 0.5 % Basophils % 0.1 % Neutrophils # 5.8 (1.6-8.9) K/mcL Lymphocytes # 1.8 (0.6-4.6) K/mcL Monocytes # 0.7 (0.0-1.3) K/mcL Eosinophils # 0.0 (0.0-0.6) K/mcL Basophils # 0.0 (0.0-0.2) K/mcL Nucleated RBCs/100 WBC 0.2 H (0) /100 WBC VBG pH 7.46 H (7.32-7.42) pH Units VBG pCO2 64 H (41-51) mmHg VBG pO2 218 H (25-50) mmHg VBG HCO3 45 H (21-27) mEq/L Sodium (136-145) mEq/L Potassium (3.5-5.1) mEq/L Chloride (98-107) mEq/L Carbon Dioxide (23-29) mEq/L BUN (8-23) mg/dL Creatinine (0.70-1.30) mg/dL Est GFR ( Amer) (> 60) Est GFR (Non-Af Amer) (> 60) BUN/Creatinine Ratio (6-26) Glucose (70-105) mg/dL Calculated Osmolality (280-300) Lactic Acid (0.5-2.2) mmol/L Calcium (8.6-10.3) mg/dL Phosphorus (2.7-4.5) mg/dL Magnesium (1.6-2.6) mg/dL Total Bilirubin (0.3-1.0) mg/dL Direct Bilirubin (0.0-0.2) mg/dL Indirect Bilirubin (0.0-1.2) mg/dL AST (13-39) Units/L ALT (7-52) Units/L Alkaline Phosphatase (34-104) Units/L Troponin I (< 0.04) ng/mL B-Natriuretic Peptide 108 H (Less than 100) pg/mL Serum Total Protein (6.4-8.9) g/dL Albumin (3.5-5.7) g/dL Globulin (2.4-3.5) g/dL Albumin/Globulin Ratio (1.1-2.2) Urine Color (Yellow) Urine Clarity (Clear) Urine pH (5.0-8.0) pH Units Ur Specific [place] (1.010-1.025) Urine Protein (Neg-Trace) mg/dL Urine Glucose (UA) (Normal) mg/dL Urine Ketones (Negative) mg/dL Urine Blood (Negative) Urine Nitrite (Negative) Urine Bilirubin (Negative) Urine Urobilinogen (Normal) mg/dL Ur Leukocyte Esterase (Negative) Ur Culture Indicated? (NO) Specimen Rejected 06/30/17 Range/Units 20:00 WBC (4.3-11.1) K/mcL RBC (4.19-5.50) M/mcL Hgb (12.9-16.9) g/dL Hct (37.5-50.1) % MCV (83.0-100.0) fL MCH (28.0-33.3) pg MCHC (31.6-35.5) g/dL RDW (11.5-14.5) % Plt Count (140-400) K/mcL MPV (9.4-12.4) fL Immature Gran % (0-4) % Seg Neutrophils % % Lymphocytes % % Monocytes % % Eosinophils % % Basophils % % Neutrophils # (1.6-8.9) K/mcL Lymphocytes # (0.6-4.6) K/mcL Monocytes # (0.0-1.3) K/mcL Eosinophils # (0.0-0.6) K/mcL Basophils # (0.0-0.2) K/mcL Nucleated RBCs/100 WBC (0) /100 WBC VBG pH (7.32-7.42) pH Units VBG pCO2 (41-51) mmHg VBG pO2 (25-50) mmHg VBG HCO3 (21-27) mEq/L Sodium (136-145) mEq/L Potassium (3.5-5.1) mEq/L Chloride (98-107) mEq/L Carbon Dioxide (23-29) mEq/L BUN (8-23) mg/dL Creatinine (0.70-1.30) mg/dL Est GFR ( Amer) (> 60) Est GFR (Non-Af Amer) (> 60) BUN/Creatinine Ratio (6-26) Glucose (70-105) mg/dL Calculated Osmolality (280-300) Lactic Acid (0.5-2.2) mmol/L Calcium (8.6-10.3) mg/dL Phosphorus (2.7-4.5) mg/dL Magnesium (1.6-2.6) mg/dL Total Bilirubin (0.3-1.0) mg/dL Direct Bilirubin (0.0-0.2) mg/dL Indirect Bilirubin (0.0-1.2) mg/dL AST (13-39) Units/L ALT (7-52) Units/L Alkaline Phosphatase (34-104) Units/L Troponin I (< 0.04) ng/mL B-Natriuretic Peptide (Less than 100) pg/mL Serum Total Protein (6.4-8.9) g/dL Albumin (3.5-5.7) g/dL Globulin (2.4-3.5) g/dL Albumin/Globulin Ratio (1.1-2.2) Urine Color Yellow (Yellow) Urine Clarity Clear (Clear) Urine pH 6.0 (5.0-8.0) pH Units Ur Specific [place] 1.017 (1.010-1.025) Urine Protein Negative (Neg-Trace) mg/dL Urine Glucose (UA) Normal (Normal) mg/dL Urine Ketones Negative (Negative) mg/dL Urine Blood Negative (Negative) Urine Nitrite Negative (Negative) Urine Bilirubin Negative (Negative) Urine Urobilinogen Normal (Normal) mg/dL Ur Leukocyte Esterase Negative (Negative) Ur Culture Indicated? NO (NO) Specimen Rejected - EKG Data EKG attestation: Yes I reviewed and interpreted this EKG. EKG results narrative: EKG at 17:18 shows signs of Sinus tacycardia with a rate of 122 bpm, no acute ST elevation or depression inverted T waves in I and avl, limited by motion. Unchanged from Prior doneon 06/01/17
--- NOTE | 2017-06-30 17:42 | Emergency Department Note ---
Disposition Clinical Impression: Acute exacerbation of chronic obstructive airways disease, Acute respiratory failure with hypoxia, NSTEMI (non-ST elevated myocardial infarction), Pneumonia , Sepsis Disposition: Admitted As Inpatient General Adult HPI - General Chief complaint: ED Shortness of Breath/Dyspnea Stated complaint: SHEILA Time Seen by Provider: 06/30/17 17:17 Source: patient Mode of arrival: EMS Limitations: no limitations Nursing Notes Reviewed: Yes Vital Signs Reviewed: Yes - History of Present Illness Pain Scale: 0 - Related Data Home Medications Medication Instructions Recorded Confirmed Albuterol Sulfate [Ventolin Hfa] 2 puff IH Q4H PRN 09/17/16 06/30/17 Budesonide/Formoterol 160/4.5 1 puff IH BID 09/17/16 06/30/17 [Symbicort 160/4.5] Calcium Gluconate 1 tab PO DAILY 09/17/16 06/30/17 Carvedilol [Coreg] 12.5 mg PO BID 09/17/16 06/30/17 Citalopram Hydrobromide [Celexa] 40 mg PO DAILY 09/17/16 06/30/17 Furosemide [Lasix] 80 mg PO BID 09/17/16 06/30/17 Lisinopril 2.5 mg PO BID 09/17/16 06/30/17 Lovastatin [Mevacor] 20 mg PO HS 09/17/16 06/30/17 Multivitamin [Multivitamins] 1 each PO DAILY 09/17/16 06/30/17 Potassium Chloride [Klor-Con 10] 20 meq PO DAILY 09/17/16 06/30/17 Dexamethasone [Decadron] 4 mg PO AD 06/10/17 06/30/17 LevETIRAcetam [Keppra] 500 mg PO BID 06/10/17 06/30/17 Previous Rx's Medication Instructions Recorded Ipratropium/Albuterol Neb [Duoneb] 3 ml IH Q6HR #60 vial.neb 07/18/15 Promethazine [Phenergan] 25 mg PO Q6HR PRN #60 tablet 09/17/16 Fluticasone Propionate Nasal 50 mcg NS DAILY #1 bottle 12/30/16 [Flonase] Mirtazapine [Remeron] 15 mg PO HS #90 tablet 04/29/17 Ranitidine HCl [Zantac] 150 mg PO DAILY #90 tablet 04/29/17 Docusate [Colace] 100 mg PO BID #60 capsule 06/10/17 HYDROcodone/Acet 5/325 mg [[place] 1 tab PO Q4H PRN 30 Days #60 tab 06/10/17 5-325 mg] Allergies Allergy/AdvReac Type Severity Reaction Status Date / Time codeine Allergy Itching Verified 06/30/17 20:45 Past Medical History - Past Medical History Medical history: Reports: cancer, CHF, COPD, diabetes, hyperlipidemia, hypertension Surgical history: Reports: pacemaker/AICD, other (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; lung biopsy) Psychiatric history: Reports: no psych history - Social History Smoking Status: Current every day smoker Smokeless Tobacco Status: No Alcohol use: Reports: none Drug use: Reports: none Physical Exam - General Limitations: no limitations General appearance: alert, in no apparent distress Course Vital Signs Temperature 97.7 F 06/30/17 17:20 Pulse Rate 122 06/30/17 17:20 Respiratory Rate 26 06/30/17 17:20 Blood Pressure 107/75 06/30/17 17:20 O2 Sat by Pulse Oximetry 99 06/30/17 17:20 Temperature 98.6 F 06/30/17 23:28 Pulse Rate 110 06/30/17 23:28 Respiratory Rate 30 06/30/17 23:28 Blood Pressure 93/67 06/30/17 23:28 O2 Sat by Pulse Oximetry 99 06/30/17 23:28 Oxygen Delivery Oxygen Delivery Bipap Medical Decision Making - MDM Narrative Medical decision making narrative: I examined this patient and my medical decision-making was reviewed with the Resident Physician. I agree with the documented findings, disposition and treatment plan as described except to the extent set forth below. Patient presents today with dyspnea and also history of lung cancer and also with history of metastasis to the brain. He has been tachycardic also he does meet SIRS criteria. We will do a workup on him most likely he will need admission. Chest X-Ray 06/30/17 17:18 IMPRESSION: No evidence of acute cardiopulmonary disease. D/ / 06/30/2017 17:54:27 Andrea Maravilla MD / [email or web address] Interpreting Provider: Andrea Maravilla MD 1850 hrs.: Patient's troponins positive; creatinines normal;his potassium was low so replenish that will given baby aspirin here no skin changes on EKG and no acute chest pain. We will remain wait for the remainder of his labs and then admit. 1999 hrs.: Patient's on BiPAP and doing better got breathing treatments here also. We will bring him into the hospital. 2045 hrs.: Hospitalist accepted patient for admission. - Lab Data Result diagrams: 06/30/17 19:34 06/30/17 18:10 Lab Results 06/30/17 06/30/17 06/30/17 Range/Units 18:05 18:10 18:10 WBC (4.3-11.1) K/mcL RBC (4.19-5.50) M/mcL Hgb (12.9-16.9) g/dL Hct (37.5-50.1) % MCV (83.0-100.0) fL MCH (28.0-33.3) pg MCHC (31.6-35.5) g/dL RDW (11.5-14.5) % Plt Count (140-400) K/mcL MPV (9.4-12.4) fL Immature Gran % (0-4) % Seg Neutrophils % % Lymphocytes % % Monocytes % % Eosinophils % % Basophils % % Neutrophils # (1.6-8.9) K/mcL Lymphocytes # (0.6-4.6) K/mcL Monocytes # (0.0-1.3) K/mcL Eosinophils # (0.0-0.6) K/mcL Basophils # (0.0-0.2) K/mcL Nucleated RBCs/100 WBC (0) /100 WBC VBG pH (7.32-7.42) pH Units VBG pCO2 (41-51) mmHg VBG pO2 (25-50) mmHg VBG HCO3 (21-27) mEq/L Sodium 140 (136-145) mEq/L Potassium 2.9 L (3.5-5.1) mEq/L Chloride 87 L (98-107) mEq/L Carbon Dioxide 43 H* (23-29) mEq/L BUN 16 (8-23) mg/dL Creatinine 0.61 L (0.70-1.30) mg/dL Est GFR ( Amer) > 60 (> 60) Est GFR (Non-Af Amer) > 60 (> 60) BUN/Creatinine Ratio 26 (6-26) Glucose 190 H (70-105) mg/dL Calculated Osmolality 296 (280-300) Lactic Acid 0.8 (0.5-2.2) mmol/L Calcium 8.8 (8.6-10.3) mg/dL Phosphorus 3.9 (2.7-4.5) mg/dL Magnesium 1.8 (1.6-2.6) mg/dL Total Bilirubin 0.4 (0.3-1.0) mg/dL Direct Bilirubin 0.1 (0.0-0.2) mg/dL Indirect Bilirubin 0.3 (0.0-1.2) mg/dL AST 19 (13-39) Units/L ALT 23 (7-52) Units/L Alkaline Phosphatase 55 (34-104) Units/L Troponin I 0.08 H* (< 0.04) ng/mL B-Natriuretic Peptide (Less than 100) pg/mL Serum Total Protein 6.4 (6.4-8.9) g/dL Albumin 3.6 (3.5-5.7) g/dL Globulin 2.8 (2.4-3.5) g/dL Albumin/Globulin Ratio 1.3 (1.1-2.2) Urine Color (Yellow) Urine Clarity (Clear) Urine pH (5.0-8.0) pH Units Ur Specific [place] (1.010-1.025) Urine Protein (Neg-Trace) mg/dL Urine Glucose (UA) (Normal) mg/dL Urine Ketones (Negative) mg/dL Urine Blood (Negative) Urine Nitrite (Negative) Urine Bilirubin (Negative) Urine Urobilinogen (Normal) mg/dL Ur Leukocyte Esterase (Negative) Ur Culture Indicated? (NO) Specimen Rejected Clotted 06/30/17 06/30/17 06/30/17 Range/Units 18:10 18:52 19:34 WBC 8.5 (4.3-11.1) K/mcL RBC 2.77 L (4.19-5.50) M/mcL Hgb 9.7 L (12.9-16.9) g/dL Hct 28.4 L (37.5-50.1) % MCV 102.5 H (83.0-100.0) fL MCH 35.0 H (28.0-33.3) pg MCHC 34.2 (31.6-35.5) g/dL RDW 13.5 (11.5-14.5) % Plt Count 126 L (140-400) K/mcL MPV 9.7 (9.4-12.4) fL Immature Gran % 1.4 (0-4) % Seg Neutrophils % 68.5 % Lymphocytes % 21.6 % Monocytes % 7.9 % Eosinophils % 0.5 % Basophils % 0.1 % Neutrophils # 5.8 (1.6-8.9) K/mcL Lymphocytes # 1.8 (0.6-4.6) K/mcL Monocytes # 0.7 (0.0-1.3) K/mcL Eosinophils # 0.0 (0.0-0.6) K/mcL Basophils # 0.0 (0.0-0.2) K/mcL Nucleated RBCs/100 WBC 0.2 H (0) /100 WBC VBG pH 7.46 H (7.32-7.42) pH Units VBG pCO2 64 H (41-51) mmHg VBG pO2 218 H (25-50) mmHg VBG HCO3 45 H (21-27) mEq/L Sodium (136-145) mEq/L Potassium (3.5-5.1) mEq/L Chloride (98-107) mEq/L Carbon Dioxide (23-29) mEq/L BUN (8-23) mg/dL Creatinine (0.70-1.30) mg/dL Est GFR ( Amer) (> 60) Est GFR (Non-Af Amer) (> 60) BUN/Creatinine Ratio (6-26) Glucose (70-105) mg/dL Calculated Osmolality (280-300) Lactic Acid (0.5-2.2) mmol/L Calcium (8.6-10.3) mg/dL Phosphorus (2.7-4.5) mg/dL Magnesium (1.6-2.6) mg/dL Total Bilirubin (0.3-1.0) mg/dL Direct Bilirubin (0.0-0.2) mg/dL Indirect Bilirubin (0.0-1.2) mg/dL AST (13-39) Units/L ALT (7-52) Units/L Alkaline Phosphatase (34-104) Units/L Troponin I (< 0.04) ng/mL B-Natriuretic Peptide 108 H (Less than 100) pg/mL Serum Total Protein (6.4-8.9) g/dL Albumin (3.5-5.7) g/dL Globulin (2.4-3.5) g/dL Albumin/Globulin Ratio (1.1-2.2) Urine Color (Yellow) Urine Clarity (Clear) Urine pH (5.0-8.0) pH Units Ur Specific [place] (1.010-1.025) Urine Protein (Neg-Trace) mg/dL Urine Glucose (UA) (Normal) mg/dL Urine Ketones (Negative) mg/dL Urine Blood (Negative) Urine Nitrite (Negative) Urine Bilirubin (Negative) Urine Urobilinogen (Normal) mg/dL Ur Leukocyte Esterase (Negative) Ur Culture Indicated? (NO) Specimen Rejected 06/30/17 Range/Units 20:00 WBC (4.3-11.1) K/mcL RBC (4.19-5.50) M/mcL Hgb (12.9-16.9) g/dL Hct (37.5-50.1) % MCV (83.0-100.0) fL MCH (28.0-33.3) pg MCHC (31.6-35.5) g/dL RDW (11.5-14.5) % Plt Count (140-400) K/mcL MPV (9.4-12.4) fL Immature Gran % (0-4) % Seg Neutrophils % % Lymphocytes % % Monocytes % % Eosinophils % % Basophils % % Neutrophils # (1.6-8.9) K/mcL Lymphocytes # (0.6-4.6) K/mcL Monocytes # (0.0-1.3) K/mcL Eosinophils # (0.0-0.6) K/mcL Basophils # (0.0-0.2) K/mcL Nucleated RBCs/100 WBC (0) /100 WBC VBG pH (7.32-7.42) pH Units VBG pCO2 (41-51) mmHg VBG pO2 (25-50) mmHg VBG HCO3 (21-27) mEq/L Sodium (136-145) mEq/L Potassium (3.5-5.1) mEq/L Chloride (98-107) mEq/L Carbon Dioxide (23-29) mEq/L BUN (8-23) mg/dL Creatinine (0.70-1.30) mg/dL Est GFR ( Amer) (> 60) Est GFR (Non-Af Amer) (> 60) BUN/Creatinine Ratio (6-26) Glucose (70-105) mg/dL Calculated Osmolality (280-300) Lactic Acid (0.5-2.2) mmol/L Calcium (8.6-10.3) mg/dL Phosphorus (2.7-4.5) mg/dL Magnesium (1.6-2.6) mg/dL Total Bilirubin (0.3-1.0) mg/dL Direct Bilirubin (0.0-0.2) mg/dL Indirect Bilirubin (0.0-1.2) mg/dL AST (13-39) Units/L ALT (7-52) Units/L Alkaline Phosphatase (34-104) Units/L Troponin I (< 0.04) ng/mL B-Natriuretic Peptide (Less than 100) pg/mL Serum Total Protein (6.4-8.9) g/dL Albumin (3.5-5.7) g/dL Globulin (2.4-3.5) g/dL Albumin/Globulin Ratio (1.1-2.2) Urine Color Yellow (Yellow) Urine Clarity Clear (Clear) Urine pH 6.0 (5.0-8.0) pH Units Ur Specific [place] 1.017 (1.010-1.025) Urine Protein Negative (Neg-Trace) mg/dL Urine Glucose (UA) Normal (Normal) mg/dL Urine Ketones Negative (Negative) mg/dL Urine Blood Negative (Negative) Urine Nitrite Negative (Negative) Urine Bilirubin Negative (Negative) Urine Urobilinogen Normal (Normal) mg/dL Ur Leukocyte Esterase Negative (Negative) Ur Culture Indicated? NO (NO) Specimen Rejected Critical Care Time Critical Care Time: Yes Total Critical Care Time: 3 Attestation: Excluding any separately billable procedures. Attestation Statement - Attestation Attestation: I examined this patient and my medical decision-making was reviewed with the Resident Physician. I agree with the documented findings, disposition and treatment plan as described except to the extent set forth below. I evaluated the patient with the ER commercial intern and myself, agree with his evaluation and management plan, supervise care the patient's stay.
[2017-06-30 18:49] LABS: Alanine Aminotransferase 23 Units/L (7-52); Albumin 3.6 g/dL (3.5-5.7); Albumin/Globulin Ratio 1.3 (1.1-2.2); Alkaline Phosphatase 55 Units/L (34-104); Aspartate Amino Transferase 19 Units/L (13-39); BUN/Creatinine Ratio 26 (6-26); Bilirubin,Direct 0.1 mg/dL (0.0-0.2); Bilirubin,Indirect 0.3 mg/dL (0.0-1.2); Bilirubin,Total 0.4 mg/dL (0.3-1.0); Blood Urea Nitrogen 16 mg/dL (8-23); Calcium 8.8 mg/dL (8.6-10.3); Carbon Dioxide 43 mEq/L (23-29); Chloride 87 mEq/L (98-107); Globulin 2.8 g/dL (2.4-3.5); Glucose 190 mg/dL (70-105); Magnesium 1.8 mg/dL (1.6-2.6); Osmolality,Calculated 296 (280-300); Phosphorous 3.9 mg/dL (2.7-4.5); Potassium 2.9 mEq/L (3.5-5.1); Sodium 140 mEq/L (136-145); Total Protein 6.4 g/dL (6.4-8.9); Troponin I 0.08 ng/mL (< 0.04); eGFR For African Americans > 60 (> 60); eGFR For Non-African Americans > 60 (> 60)
[2017-06-30] MEDS ORDERED: Aspirin 325 MG TABLET PO ONE (18:51)
[2017-06-30 18:55] LABS: VBG HCO3 45 mEq/L (21-27); VBG PCO2 64 mmHg (41-51); VBG PH 7.46 pH Units (7.32-7.42); VBG PO2 218 mmHg (25-50)
[2017-06-30] MEDS ORDERED: Ipratropium/Albuterol Neb 3 ML IH ONE (19:53)
[2017-06-30 20:02] LABS: Basophils % 0.1 %; Eosinophils % 0.5 %; Hematocrit 28.4 % (37.5-50.1); Hemoglobin 9.7 g/dL (12.9-16.9); Immature Granulocytes % 1.4 % (0-4); Lymphocytes # 1.8 K/mcL (0.6-4.6); Lymphocytes % 21.6 %; Mean Corpuscular HGB Conc 34.2 g/dL (31.6-35.5); Mean Corpuscular Volume 102.5 fL (83.0-100.0); Mean Platelet Volume 9.7 fL (9.4-12.4); Monocytes # 0.7 K/mcL (0.0-1.3); Monocytes % 7.9 %; Neutrophils # 5.8 K/mcL (1.6-8.9); Nucleated Red Blood Cells 0.2 /100 WBC (0); Platelet Count 126 K/mcL (140-400); Red Blood Count 2.77 M/mcL (4.19-5.50); Red Cell Distribution Width 13.5 % (11.5-14.5); Segmented Neutrophils % 68.5 %
[2017-06-30 20:11] LABS: Bilirubin,Urine Negative (Negative); Blood,Urine Negative (Negative); Clarity,Urine Clear (Clear); Color,Urine Yellow (Yellow); Glucose,Urine (UA) Normal (Normal); Ketones,Urine Negative (Negative); Leukocyte Esterase,Urine Negative (Negative); Nitrite,Urine Negative (Negative); Protein,Urine Negative (Neg-Trace); Specific Gravity,Urine 1.017 (1.010-1.025); Urobilinogen,Urine Normal (Normal)
[2017-06-30] MEDS ORDERED: Acetaminophen 325 MG TABLET PO PRN (21:31)
[2017-06-30] MEDS ORDERED: Naloxone 0.4 MG/ML INJ IVP PRN (21:31)
[2017-06-30] MEDS ORDERED: Albuterol 2.5 MG/3 ML NEBULIZER IH PRN (21:41)
[2017-06-30] MEDS ORDERED: *HR* HYDROcodone/Acet 5/325 mg TABLET PO PRN (21:41)
[2017-06-30] MEDS ORDERED: Vancomycin (wt based) 1,000 MG VIAL IVPB SCH (22:00)
--- NOTE | 2017-06-30 22:10 | Internal Med History&Physical ---
Date of Encounter: 06/30/17 Time of Encounter: 20:45 Internal Medicine - H&P: HPI Chief complaint: SOB; COUGH Admitted From: Emergency Dept Plans for Post Hospital Care: Home History of present illness: Mr. Clemente is a 66 year old male who presents with a one to two-week history of cough, congestion, shortness of breath, increasing malaise, fatigue, and weakness. He is on chronic home oxygen of 2-4 L nasal cannula and became acutely short of breath today. His daughter called the squad and he was noted to have O2 sats in the 70% range. He was brought to ER and placed on BiPAP and had a workup performed. His vital signs and oxygenation improved on BiPAP. Workup included imaging, which is concerning for pneumonia. He has a history of stage IV lung cancer and is going through chemotherapy and radiation therapy. He was recently hospitalized 1 month ago for brain metastases and neurologic sequelae. This required transportation [facility] where he was stabilized and placed on seizure medicines and steroids. He has been improving neurologcially since then. However, his acute issue now is respiratory distress and failure as above. Regarding his lung cancer, he is going through chemotherapy and radiation. I met with patient and daughter in the ER, and they state he is full code for now. Should he fail BiPAP, they request intubation and mechanical ventilation. He has had no documented fevers , but he has had subjective fevers, chills, and night sweats. He has had no hemoptysis. He has had no vomiting or diarrhea. Appetite has been very poor. He has had no chest pain. I discussed with patient and daughter length in the ER and reviewed his CODE STATUS and expressed wishes. Both patient and daughter state he wants to be full code and have every treatment measure available. I reviewed recent oncology notes and note that he is on palliative treatment. At this time, however, I do not believe he can grasp and/or understand the meaning of palliative chemotherapy treatment. He will likely need oncology consultation and Palliative Care consultation as I anticipate he will improve significantly. Meanwhile, we will treat him with respiratory support as above and antibiotics until we can have further consultation and assessment of the patient in the morning with appropriate education sales consultant input. Past Med Surg Social Fam HX - Past Medical History Attestation: Yes The following information was validated with the patient. 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 ; lung biopsy) - Social History Smoking Status: Current every day smoker Smokeless Tobacco Status: No Alcohol use: none Drug use: none Current living situation: Home, With Family Recent Out of Country Travel Within the Last 8 Weeks: No - Family History Mother Living Status: Father Living Status: Internal Medicine - H&P: Meds Ipratropium/Albuterol Neb [Duoneb] 3 ml IH Q6HR #60 vial.neb 07/18/15 [Rx] Albuterol Sulfate [Ventolin Hfa] 2 puff IH Q4H PRN 09/17/16 [History] Budesonide/Formoterol 160/4.5 [Symbicort 160/4.5] 1 puff IH BID 09/17/16 [ History] Calcium Gluconate 1 tab PO DAILY 09/17/16 [History] Carvedilol [Coreg] 12.5 mg PO BID 09/17/16 [History] Citalopram Hydrobromide [Celexa] 40 mg PO DAILY 09/17/16 [History] Furosemide [Lasix] 80 mg PO BID 09/17/16 [History] Lisinopril 2.5 mg PO BID 09/17/16 [History] Lovastatin [Mevacor] 20 mg PO HS 09/17/16 [History] Multivitamin [Multivitamins] 1 each PO DAILY 09/17/16 [History] Potassium Chloride [Klor-Con 10] 20 meq PO DAILY 09/17/16 [History] Promethazine [Phenergan] 25 mg PO Q6HR PRN #60 tablet 09/17/16 [Rx] Fluticasone Propionate Nasal [Flonase] 50 mcg NS DAILY #1 bottle 12/30/16 [Rx] Mirtazapine [Remeron] 15 mg PO HS #90 tablet 04/29/17 [Rx] Ranitidine HCl [Zantac] 150 mg PO DAILY #90 tablet 04/29/17 [Rx] Dexamethasone [Decadron] 4 mg PO AD 06/10/17 [History] Docusate [Colace] 100 mg PO BID #60 capsule 06/10/17 [Rx] HYDROcodone/Acet 5/325 mg [[place] 5-325 mg] 1 tab PO Q4H PRN 30 Days #60 tab [Rx] LevETIRAcetam [Keppra] 500 mg PO BID 06/10/17 [History] 3 Allergy/AdvReac Type Severity Reaction Status Date / Time codeine Allergy Itching Verified 06/30/17 20:45 - Constitutional Constitutional: no chills, no fever(s) - EENT Eyes: no blurry vision, no change in vision Ears: no ear pain, no tinnitus Nose, mouth and throat: nasal congestion, no sinus pressure, no sore throat - Cardiovascular Cardiovascular ROS IM: dyspnea, dyspnea on exertion, edema, no chest pain, no lightheadedness, no syncope - Respiratory Respiratory: cough, dyspnea, dyspnea on exertion, wheezing, chest congestion, excessive phlegm production, change in phlegm color, no hemoptysis - Gastrointestinal Gastrointestinal: no abdominal pain, no diarrhea, no hematemesis, no hematochezia, no melena, no vomiting - Genitourinary Genitourinary ROS male: no dysuria, no flank pain, no hematuria - Musculoskeletal Musculoskeletal ROS IM: no arthralgias, no joint swelling - Integumentary Integumentary IM: no rash, no jaundice - Neurological Neurological ROS: no confusion, no dizziness, no focal weakness, no frequent falls, no headache(s) - Psychiatric Psychiatric: no anxiety, no depression - Endocrine Endocrine IM: no polydipsia, no polyuria - Hematologic/Lymphatic Hematologic/Lymphatic: easy bruising - Allergic/Immunologic Allergic/Immunologic: wheezing, no GI upset with certain foods - Constitutional Vitals: Temp Pulse Resp BP Pulse Ox 97.7 F 122 27 107/75 97 06/30/17 17:20 06/30/17 17:20 06/30/17 20:04 06/30/17 17:20 06/30/17 20:04 General appearance: Present: cooperative, A&O X 3, pleasant Exam: moderate distress due to BiPap and SOB; feels better on BiPap - Head Head exam: Present: atraumatic, normal inspection - Eye Eye exam: Present: EOMI, normal appearance, PERRL. Absent: scleral icterus Pupils: Present: normal accommodation - ENT ENT exam: Present: mucous membranes dry, normal external ear exam Additional comments: BiPap in place - Neck Neck exam general surgery: Present: full ROM, supple. Absent: normal inspection , tenderness, thyromegaly - Respiratory Respiratory exam: Present: accessory muscle use, prolonged expiratory phase, rales, respiratory distress, rhonchi, wheezes, tachypnea. Absent: chest wall tenderness - Cardiovascular Cardiovascular exam: Present: distant heart sounds, RRR, +S1, +S2, tachycardia. Absent: diastolic murmur, JVD, systolic murmur - GI/Abdominal GI/Abdominal exam: Present: normal bowel sounds, soft. Absent: guarding, hepatomegaly, mass, rebound, splenomegaly, tenderness - Extremities Exam Extremities exam: Present: full ROM, normal capillary refill, pedal edema (2+), warm, radial pulses palpable and symmetrical. Absent: calf tenderness, joint swelling - Back Exam Back exam: Absent: CVA tenderness (L), CVA tenderness (R) - Neurological Exam Neurological exam: Present: alert, CN II-XII intact, oriented X3, no focal deficits Additional comments: diffuse generalized weakness; otherwise non-focal - Psychiatric Psychiatric exam: Present: flat affect. Absent: anxious - Skin Skin exam: Present: dry, warm. Absent: rash Internal Med - H&P Results - Labs CBC & Chem 7: 06/30/17 19:34 06/30/17 18:10 - EKG Data -: EKG Interpreted by Myself - EKG Data Prior EKG available for review: no EKG comments: 06/30/17 22:56 Sinus tachycardia; no acute changes - Diagnostic Studies Chest x-ray Status: image reviewed by me (pacer; no acute inliftrate) - Assessment and plan (1) Acute respiratory failure with hypoxia Current Visit: Yes Status: Acute Assessment and plan: 1. Continue BIPap, oxygen, aerosols. 2. Antibiotics for suspected pneumonia despite negative CXR. 3. If he fails BiPap, he and family request ETT and mechanical ventilation. 4. Patient will likely need HEM/ONC and Palliative Care consults tomorrow to further delineate goals of care and treatment. I am not sure patient and family understand his disease process, severity, and palliative treatment rendered by Oncology. (2) Sepsis Current Visit: Yes Status: Acute Assessment and plan: 1. Blood cultures obtained in ER. 2. IVF, antibiotics, and trend lactate per protocol. 3. Hold diuretics. 4. Monitor hemodynamics and fluid resuscitate as needed. Qualifiers: Sepsis type: sepsis due to unspecified organism Qualified Code(s): A41.9 - Sepsis, unspecified organism (3) Lung cancer Current Visit: Yes Status: Chronic Assessment and plan: 1. Will need further Oncology and likely Palliative Care consultation soon. 2. Will defer chemo and radiation treatments to Oncology. 3. Continue Decadron and Keppra for brain metastases. Qualifiers: Laterality: left Lung location: overlapping sites Qualified Code(s): C34.82 - Malignant neoplasm of overlapping sites of left bronchus and lung (4) DVT prophylaxis Current Visit: No Status: Acute Assessment and plan: 1. Heparin SQ.
[2017-06-30 22:54] LABS: INR 1.1; Prothrombin Time 12.3 Seconds (9.4-12.1)
[2017-06-30 22:56] LABS: Activated Partial Thrombo Time 26.5 Seconds (26.0-36.0)
[2017-06-30] MEDS: levETIRAcetam 250 MG TABLET PO SCH (23:51)
[2017-06-30] MEDS: Dexamethasone 4 MG/ML VIAL IVP SCH (23:51)
[2017-06-30] MEDS: 0.9 % Sodium Chloride w KCl 20 MEQ/1,000 ML MLS IVC SCH (23:52)
[2017-07-01] MEDS: Ipratropium/Albuterol Neb 3 ML IH SCH ×7 (00:19→23:35)
[2017-07-01 00:38] LABS: Basophils % 0.1 %; Eosinophils # 0.1 K/mcL (0.0-0.6); Eosinophils % 0.6 %; Hematocrit 27.6 % (37.5-50.1); Hemoglobin 9.4 g/dL (12.9-16.9); Immature Granulocytes % 1.1 % (0-4); Lymphocytes # 1.9 K/mcL (0.6-4.6); Lymphocytes % 21.5 %; Mean Corpuscular HGB Conc 34.1 g/dL (31.6-35.5); Mean Corpuscular Hemoglobin 34.8 pg (28.0-33.3); Mean Corpuscular Volume 102.2 fL (83.0-100.0); Mean Platelet Volume 9.5 fL (9.4-12.4); Monocytes # 0.7 K/mcL (0.0-1.3); Monocytes % 7.7 %; Neutrophils # 6.2 K/mcL (1.6-8.9); Nucleated Red Blood Cells 0.3 /100 WBC (0); Platelet Count 139 K/mcL (140-400); Red Cell Distribution Width 13.8 % (11.5-14.5)
[2017-07-01 00:58] LABS: Alanine Aminotransferase 22 Units/L (7-52); Albumin 3.6 g/dL (3.5-5.7); Albumin/Globulin Ratio 1.2 (1.1-2.2); Alkaline Phosphatase 56 Units/L (34-104); Aspartate Amino Transferase 19 Units/L (13-39); BUN/Creatinine Ratio 23 (6-26); Bilirubin,Total 0.5 mg/dL (0.3-1.0); Blood Urea Nitrogen 14 mg/dL (8-23); Calcium 8.9 mg/dL (8.6-10.3); Carbon Dioxide 40 mEq/L (23-29); Chloride 88 mEq/L (98-107); Chol/HDL Ratio 4.1 (0-4.9); Cholesterol 197 mg/dL (< 200); Globulin 2.9 g/dL (2.4-3.5); Glucose 84 mg/dL (70-105); HDL Cholesterol 48 mg/dL (40-59); LDL Cholesterol,Calculated 110 mg/dL (0-99); Magnesium 1.8 mg/dL (1.6-2.6); Osmolality,Calculated 290 (280-300); Potassium 3.5 mEq/L (3.5-5.1); Sodium 140 mEq/L (136-145); Total Protein 6.5 g/dL (6.4-8.9); Triglycerides 196 mg/dL (< 150); eGFR For African Americans > 60 (> 60); eGFR For Non-African Americans > 60 (> 60)
[2017-07-01] MEDS: Piperacillin/Tazobactam 3.375 GM in 0.9 % Sodium Chloride Mini Bag 100 ML IVPB SCH ×2 (01:42→10:55)
[2017-07-01] MEDS: *HR* Heparin 5,000 UNIT/ML VIAL SQ SCH ×2 (06:21→17:04)
[2017-07-01] MEDS: Dexamethasone 4 MG/ML VIAL IVP SCH ×3 (06:21→20:01)
[2017-07-01] MEDS: Budesonide/Formoterol 160/4.5 MDI IH SCH ×2 (08:03→20:14)
[2017-07-01] MEDS: Fluticasone Propionate Nasal 50 MCG/SPRAY BOTTLE NS SCH (08:24)
[2017-07-01] MEDS: Famotidine 20 MG TABLET PO SCH (08:24)
[2017-07-01] MEDS: Levofloxacin 750 MG/150 ML 750 MG/150 ML BAG IVPB SCH (08:25)
[2017-07-01] MEDS: levETIRAcetam 250 MG TABLET PO SCH ×2 (08:25→20:01)
[2017-07-01] MEDS: 0.9 % Sodium Chloride w KCl 20 MEQ/1,000 ML MLS IVC SCH (08:26)
--- NOTE | 2017-07-01 13:31 | Electrocardiograph Report ---
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
--- NOTE | 2017-07-01 13:33 | Internal Med Progress Note ---
Date of Encounter: 07/01/17 Time of Encounter: 13:31 - Assessment and plan (1) Acute respiratory failure with hypoxia Current Visit: Yes Status: Acute Assessment and plan: Acute on chronic hypoxic respiratory failure secondary to acute COPD exacerbation due to possible sepsis from acute bacterial bronchitis and lung cancer Continue BIPap, oxygen, aerosols. 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 Continue Decadron and Keppra for brain metastases. Qualifiers: Laterality: left Lung location: overlapping sites Qualified Code(s): C34.82 - Malignant neoplasm of overlapping sites of left bronchus and lung (3) DVT prophylaxis Current Visit: No Status: Acute Assessment and plan: 1. Heparin SQ. (4) Sepsis Current Visit: Yes Status: Acute Assessment and plan: Blood pressure was 88/65, heart rate was 122 IVF, antibiotics, and trend lactate per protocol. Hold lisinopril and Lasix Qualifiers: Sepsis type: sepsis due to unspecified organism Qualified Code(s): A41.9 - Sepsis, unspecified organism (5) Hypokalemia Current Visit: Yes Status: Acute Assessment and plan: Replete (6) Neuroendocrine carcinoma of lung Current Visit: No Status: Acute - Time Spent With Patient Total time spent is greater than 50% in coordination of care (as documented) at patient's floor/unit and/or counseling patient: - Subjective Interval history: Stable, complaining still of shortness of breath, denies any chest pain, no abdominal pain diarrhea or dysuria - Constitutional Vitals: Temp Pulse Resp BP Pulse Ox 97.8 F 108 22 95/72 95 07/01/17 11:44 07/01/17 11:44 07/01/17 12:39 07/01/17 11:44 07/01/17 12:39 General appearance: Present: cooperative, A&O X 3, pleasant - Head Head exam: Present: atraumatic, normocephalic - Eye Eye exam: Present: PERRL, conjuntiva pink, sclera anicteric Pupils: Present: PERRL - Neck Neck exam general surgery: Present: supple, trachea midline. Absent: lymphadenopathy - Respiratory Respiratory exam: Present: decreased breath sounds (Very diminished Breath sounds), CTAB. Absent: accessory muscle use, rales, rhonchi, wheezes - Cardiovascular Cardiovascular exam: Present: RRR, +S1, +S2. Absent: diastolic murmur, gallop, rubs, systolic murmur - GI/Abdominal GI/Abdominal exam: Present: normal bowel sounds, soft, no peritoneal signs. Absent: distended, tenderness - Extremities Exam Extremities exam: Present: warm, radial pulses palpable and symmetrical. Absent : calf tenderness, cyanotic, pedal edema - Neurological Exam Neurological exam: Present: CN II-XII intact, oriented X3, no focal deficits. Absent: pronater drift, facial droop, speech deficit - Skin Skin exam: Present: dry, intact Internal Medicine: Result - Labs CBC & Chem 7: 07/01/17 00:26 07/01/17 00:26 Labs: Short CBC 07/01/17 Range/Units 00:26 WBC 9.0 (4.3-11.1) K/mcL Hgb 9.4 L (12.9-16.9) g/dL Hct 27.6 L (37.5-50.1) % Plt Count 139 L (140-400) K/mcL Neutrophils # 6.2 (1.6-8.9) K/mcL BMP 07/01/17 00:26 Sodium 140 Potassium 3.5 Chloride 88 L Carbon Dioxide 40 H* BUN 14 Creatinine 0.60 L Glucose 84 Calcium 8.9 Cardiac Enzymes 07/01/17 07/01/17 Range/Units 00:26 06:17 Troponin I 0.12 H* 0.07 H* (< 0.04) ng/mL Liver Function 07/01/17 Range/Units 00:26 Total Bilirubin 0.5 (0.3-1.0) mg/dL AST 19 (13-39) Units/L ALT 22 (7-52) Units/L Alkaline Phosphatase 56 (34-104) Units/L Albumin 3.6 (3.5-5.7) g/dL - ABG Interpretation ABG results: PT/INR, D-dimer PT 12.3 Seconds (9.4-12.1) H 06/30/17 22:35 Consult Discharge Plan - Plan Referrals: Moise Vo DO [Primary Care Provider] - 07/12/17 1:00 pm
--- NOTE | 2017-07-01 14:46 | Palliative - Consult Note ---
Date of Encounter: 07/01/17 Time of Encounter: 14:45 - Assessment and Plan (1) Cancer associated pain Current Visit: Yes Status: Acute Assessment and plan: Has [place] ordered as he takes at home. Has not utilized and denying pain at this time. Monitor (2) Dyspnea Current Visit: Yes Status: Acute Assessment and plan: Remains on bipap, receiving IV atb/bronchodilators. Qualifiers: Dyspnea type: unspecified Qualified Code(s): R06.00 - Dyspnea, unspecified (3) Counseling regarding advanced care planning and goals of care Current Visit: Yes Status: Acute Assessment and plan: No family present. I have tried to call pt daughter, Mariana with the number listed, one of her children answered, stating she wasn't there and didn't know when she would return. Will be attempting to reach daughter for goals of care/ code status discussion, and discharge planning. (4) Neuroendocrine carcinoma of lung Current Visit: No Status: Acute (5) Acute exacerbation of chronic obstructive pulmonary disease (COPD) Current Visit: No Status: Acute (6) Community acquired pneumonia Current Visit: No Status: Acute Qualifiers: Laterality: unspecified laterality Qualified Code(s): J18.9 - Pneumonia, unspecified organism Palliative-CN HPI - Data of Consult Requesting Physician: Godfrey Alvarado MD Primary Care Provider: Erlin Fitzpatrick - Consult Narrative History of present illness: Mr. Clemente is a 66 year old male who presented with a one to two-week history of cough, congestion, shortness of breath, increasing malaise, fatigue, and weakness. He has history of stage IV lung cancer, and has received treatment from the [facility], Dr. Han Gill. Recently has completed brain radiation for increasing metastatic disease - he had seizure and was intubated, sent to [facility], and medications were titrated. Last oncology visit reviewed, appears that no further systemic therapy was recommended. He is on chronic home oxygen of 2-4 L nasal cannula and became short of breath at home with oxygen saturations in the 70's. He was brought to ER and placed on BiPAP and had a workup performed. His vital signs and oxygenation improved on BiPAP, and he is being treated for pneumonia. Upon my visit, he remains on bipap, no family at bedside. He becomes fatigued with questioning, keeps eyes closed during much of conversation. Vitals stable. Appears in mild respiratory distress. 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) - Social History Smoking Status: Current every day smoker Smokeless Tobacco Status: No Alcohol use: none Drug use: none - Family History Mother Living Status: Father Living Status: Medications and Allergies Ipratropium/Albuterol Neb [Duoneb] 3 ml IH Q6HR #60 vial.neb 07/18/15 [Rx] Albuterol Sulfate [Ventolin Hfa] 2 puff IH Q4H PRN 09/17/16 [History] Budesonide/Formoterol 160/4.5 [Symbicort 160/4.5] 1 puff IH BID 09/17/16 [ History] Calcium Gluconate 1 tab PO DAILY 09/17/16 [History] Carvedilol [Coreg] 12.5 mg PO BID 09/17/16 [History] Citalopram Hydrobromide [Celexa] 40 mg PO DAILY 09/17/16 [History] Furosemide [Lasix] 80 mg PO BID 09/17/16 [History] Lisinopril 2.5 mg PO BID 09/17/16 [History] Lovastatin [Mevacor] 20 mg PO HS 09/17/16 [History] Multivitamin [Multivitamins] 1 each PO DAILY 09/17/16 [History] Potassium Chloride [Klor-Con 10] 20 meq PO DAILY 09/17/16 [History] Promethazine [Phenergan] 25 mg PO Q6HR PRN #60 tablet 09/17/16 [Rx] Fluticasone Propionate Nasal [Flonase] 50 mcg NS DAILY #1 bottle 12/30/16 [Rx] Mirtazapine [Remeron] 15 mg PO HS #90 tablet 04/29/17 [Rx] Ranitidine HCl [Zantac] 150 mg PO DAILY #90 tablet 04/29/17 [Rx] Dexamethasone [Decadron] 4 mg PO AD 06/10/17 [History] Docusate [Colace] 100 mg PO BID #60 capsule 06/10/17 [Rx] HYDROcodone/Acet 5/325 mg [[place] 5-325 mg] 1 tab PO Q4H PRN 30 Days #60 tab [Rx] LevETIRAcetam [Keppra] 500 mg PO BID 06/10/17 [History] 3 Allergy/AdvReac Type Severity Reaction Status Date / Time codeine Allergy Itching Verified 06/30/17 20:45 ROS unobtainable: other (Difficulty with speaking r/t bipap, denies pain, nausea , vomiting, anxiety. C/O shortness of breath but is tolerating bipap well. ) Palliative Care-Exam - Constitutional Vitals: Temp Pulse Resp BP Pulse Ox 97.8 F 108 22 95/72 95 07/01/17 11:44 07/01/17 11:44 07/01/17 12:39 07/01/17 11:44 07/01/17 12:39 General appearance: Present: no acute distress - Head Head Exam: Present: normal inspection, normocephalic - Eye Eye exam: Present: normal appearance, PERRL - Respiratory Respiratory exam: Present: decreased breath sounds, CTAB - Cardiovascular Cardiovascular exam: Present: +S1, +S2 - GI/Abdominal Exam GI/Abdominal exam: Present: distended, normal bowel sounds, soft - Catheter Type: Urethral (Mg) Additional comments: Mg has just been discontinued. Urinal at bedside. - Extremities Exam Extremities exam: Present: normal capillary refill, normal inspection - Neurological Exam Neurological exam: Present: alert, oriented X3, strengths equal and symetr throughout - Psychiatric Psychiatric exam: Present: normal affect - Skin Skin exam: Present: dry, pallor, warm Internal Medicine - CN: Reslt - Labs CBC & Chem 7: 07/01/17 00:26 07/01/17 00:26 Labs: Short CBC 07/01/17 Range/Units 00:26 WBC 9.0 (4.3-11.1) K/mcL Hgb 9.4 L (12.9-16.9) g/dL Hct 27.6 L (37.5-50.1) % Plt Count 139 L (140-400) K/mcL Neutrophils # 6.2 (1.6-8.9) K/mcL BMP 07/01/17 00:26 Sodium 140 Potassium 3.5 Chloride 88 L Carbon Dioxide 40 H* BUN 14 Creatinine 0.60 L Glucose 84 Calcium 8.9 Cardiac Enzymes 07/01/17 07/01/17 Range/Units 00:26 06:17 Troponin I 0.12 H* 0.07 H* (< 0.04) ng/mL Liver Function 07/01/17 Range/Units 00:26 Total Bilirubin 0.5 (0.3-1.0) mg/dL AST 19 (13-39) Units/L ALT 22 (7-52) Units/L Alkaline Phosphatase 56 (34-104) Units/L Albumin 3.6 (3.5-5.7) g/dL - ABG Interpretation ABG results: PT/INR, D-dimer PT 12.3 Seconds (9.4-12.1) H 06/30/17 22:35 Consult Discharge Plan - Plan Referrals: Moise Vo DO [Primary Care Provider] - 07/12/17 1:00 pm Palliative Quality Palliative Quality: Screen for Code Status: Yes, Screen for Goals of Care: Yes, Screen for Pain: Yes, If Pain Regimen Started, Initiate Bowel Regimen: NA, Screen for Nausea/Vomitting: Yes
[2017-07-02] MEDS: Ipratropium/Albuterol Neb 3 ML IH SCH ×6 (04:12→23:33)
[2017-07-02 04:46] LABS: Hematocrit 24.9 % (37.5-50.1); Hemoglobin 8.3 g/dL (12.9-16.9); Mean Corpuscular HGB Conc 33.3 g/dL (31.6-35.5); Mean Corpuscular Hemoglobin 33.6 pg (28.0-33.3); Mean Corpuscular Volume 100.8 fL (83.0-100.0); Mean Platelet Volume 9.8 fL (9.4-12.4); Platelet Count 132 K/mcL (140-400); Red Blood Count 2.47 M/mcL (4.19-5.50); Red Cell Distribution Width 13.7 % (11.5-14.5)
[2017-07-02 05:00] LABS: BUN/Creatinine Ratio 26 (6-26); Blood Urea Nitrogen 17 mg/dL (8-23); Calcium 8.5 mg/dL (8.6-10.3); Carbon Dioxide 38 mEq/L (23-29); Chloride 102 mEq/L (98-107); Glucose 145 mg/dL (70-105); Osmolality,Calculated 294 (280-300); Potassium 4.2 mEq/L (3.5-5.1); Sodium 140 mEq/L (136-145); eGFR For African Americans > 60 (> 60); eGFR For Non-African Americans > 60 (> 60)
[2017-07-02] MEDS: *HR* Heparin 5,000 UNIT/ML VIAL SQ SCH ×2 (06:11→18:17)
[2017-07-02] MEDS: Dexamethasone 4 MG/ML VIAL IVP SCH ×3 (06:11→20:15)
[2017-07-02] MEDS: Budesonide/Formoterol 160/4.5 MDI IH SCH ×2 (07:41→23:33)
[2017-07-02] MEDS: levETIRAcetam 250 MG TABLET PO SCH ×2 (09:39→20:15)
[2017-07-02] MEDS: Fluticasone Propionate Nasal 50 MCG/SPRAY BOTTLE NS SCH (09:39)
[2017-07-02] MEDS: Famotidine 20 MG TABLET PO SCH (09:39)
[2017-07-02] MEDS: Levofloxacin 750 MG/150 ML 750 MG/150 ML BAG IVPB SCH (09:40)
--- NOTE | 2017-07-02 09:42 | Palliative Progress Note ---
Date of Encounter: 07/02/17 Time of Encounter: 09:00 - Assessment and plan (1) Constipation due to pain medication Current Visit: Yes Status: Acute Assessment and plan: Patient and patient's daughter report frequent constipation at home related to taking pain medication. Patient has received 0 doses of [place] in the last 24 hours. Will order PRN Miralax for difficulty with bowel movements. Patient is getting up to have a bowel movement at this time. (2) Lung cancer Current Visit: Yes Status: Chronic Assessment and plan: Oncology consulted; follow Oncology recommendations. Qualifiers: Laterality: left Lung location: overlapping sites Qualified Code(s): C34.82 - Malignant neoplasm of overlapping sites of left bronchus and lung (3) Neuroendocrine carcinoma of lung Current Visit: No Status: Acute (4) Community acquired pneumonia Current Visit: No Status: Acute Assessment and plan: Patient CTAB lungs. WBC count is improving since admission. Reports breathing easier. Patient is taking Levaquin IV and duonebs, continue as ordered. Qualifiers: Laterality: unspecified laterality Qualified Code(s): J18.9 - Pneumonia, unspecified organism (5) Acute exacerbation of chronic obstructive airways disease Current Visit: Yes Status: Acute Assessment and plan: Continue Duonebs and Bronchodilators. Stable. (6) Counseling regarding advanced care planning and goals of care Current Visit: Yes Status: Acute Assessment and plan: Discussed goals of care, patient awaiting further recommendations from Oncology providers that are to see him later today. Patient verbalized understanding of hospice services and ability to obtain when stopping treatment. Discussed goals of care and patient requests to continue full treatment course at this time, pending recommendations from Oncology. Discussed code status and risks of CPR and intubation; patient verbalized understanding and wishes to remain full code with CPR and intubation at this time, patient reports may reconsider after Oncology sees him. Palliative will continue to follow patient. Patient did identify Daughter Mariana as decision maker should he be unable to make decisions. Mariana gave additional phone number of [phone] for contact. Mariana is in agreement with patient's wishes and is going to attempt to stay at bedside most of day to meet with Oncologist. (7) Cancer associated pain Current Visit: Yes Status: Acute Assessment and plan: Patient denies pain during assessment. 0 doses of [place] in the last 24 hours. (8) Dyspnea Current Visit: Yes Status: Acute Assessment and plan: Patient denies SOB when on Bipap. Continue to wean B[facility] for [facility] to [facility]. Qualifiers: Dyspnea type: unspecified Qualified Code(s): R06.00 - Dyspnea, unspecified - Time Spent With Patient Total time spent is greater than 50% in coordination of care (as documented) at patient's floor/unit and/or counseling patient: - Subjective Interval history: Patient resting quietly in bed with daughter, Genie, at bedside. Patient is alert and oriented times three. Patient denies pain, nausea, and anxiety. Patient reports only episodes of SOB when BiPap is removed. Current oxygen saturation with BiPap 99%. No signs or symptoms of distress noted. Patient's daughter reports patient gets constipated very easily, needing to have a bowel movement at this time; notified patient's nurse as patient has not been up without assistance since admission. Patient's family reports patient girlfriend two weeks ago. Patient reports he is a current patient of Dr. Gill and Dr. Diaz at [facility]; followup visit is set for two months after last round of chemo and radiation. Patient reports that Dr. Gill informed him to live every day like its his last. - Constitutional Vitals: Abnormal lab results RBC 2.47 M/mcL (4.19-5.50) L 07/02/17 04:33 Hgb 8.3 g/dL (12.9-16.9) L 07/02/17 04:33 Hct 24.9 % (37.5-50.1) L 07/02/17 04:33 MCV 100.8 fL (83.0-100.0) H 07/02/17 04:33 MCH 33.6 pg (28.0-33.3) H 07/02/17 04:33 Plt Count 132 K/mcL (140-400) L 07/02/17 04:33 Nucleated RBCs/100 WBC 0.3 /100 WBC (0) H 07/01/17 00:26 PT 12.3 Seconds (9.4-12.1) H 06/30/17 22:35 VBG pH 7.46 pH Units (7.32-7.42) H 06/30/17 18:52 VBG pCO2 64 mmHg (41-51) H 06/30/17 18:52 VBG pO2 218 mmHg (25-50) H 06/30/17 18:52 VBG HCO3 45 mEq/L (21-27) H 06/30/17 18:52 Carbon Dioxide 38 mEq/L (23-29) H 07/02/17 04:33 Creatinine 0.65 mg/dL (0.70-1.30) L 07/02/17 04:33 Glucose 145 mg/dL (70-105) H 07/02/17 04:33 POC Glucose 139 mg/dL (70-99) H 07/02/17 07:22 Calcium 8.5 mg/dL (8.6-10.3) L 07/02/17 04:33 Troponin I 0.07 ng/mL (< 0.04) H* 07/01/17 06:17 B-Natriuretic Peptide 108 pg/mL (Less than 100) H 06/30/17 18:10 Triglycerides 196 mg/dL (< 150) H 07/01/17 00:26 LDL Cholesterol, Calc 110 mg/dL (0-99) H 07/01/17 00:26 VLDL Cholesterol, Calc 39 mg/dL (< 31) H 07/01/17 00:26 General appearance: Present: cooperative, morbidly obese, no acute distress - Head Head exam: Present: atraumatic, normal inspection - Expanded Head Exam Head exam: Absent: general tenderness - Eye Eye exam: Present: normal appearance, PERRL. Absent: nystagmus, periorbital swelling, periorbital tenderness Pupils: Present: normal accommodation, PERRL - ENT ENT exam: Present: mucous membranes dry, normal external ear exam Additional comments: Patient is very hard of hearing to right ear. - Neck Neck exam: Present: full ROM, normal inspection - Respiratory Respiratory exam: Present: CTAB. Absent: accessory muscle use, respiratory distress - Cardiovascular Cardiovascular exam: Present: +S1, +S2. Absent: irregular rhythm - GI/Abdominal GI/Abdominal exam: Present: hyperactive bowel sounds, soft. Absent: tenderness - Rectal Rectal exam: Present: deferred - Extremities Exam Extremities exam: Present: full ROM, normal inspection. Absent: pedal edema - Neurological Exam Neurological exam: Present: alert, oriented X3. Absent: altered - Psychiatric Psychiatric exam: Present: normal affect, normal mood. Absent: anxious - Skin Skin exam: Present: dry, intact, warm Palliative Quality Palliative Quality: Screen for Code Status: Yes, Screen for Goals of Care: Yes, Screen for Pain: Yes, If Pain Regimen Started, Initiate Bowel Regimen: Yes, Screen for Nausea/Vomitting: Yes - Labs CBC & Chem 7: 07/02/17 04:33 07/02/17 04:33 Labs: Laboratory Results - last 24 hr 07/01/17 07/01/17 07/01/17 00:55 07:18 11:44 WBC RBC Hgb Hct MCV MCH MCHC RDW Plt Count MPV Sodium Potassium Chloride Carbon Dioxide BUN Creatinine Est GFR ( Amer) Est GFR (Non-Af Amer) BUN/Creatinine Ratio Glucose POC Glucose 125 H 165 H 221 H Calculated Osmolality Calcium 07/01/17 07/01/17 07/02/17 16:59 20:07 04:33 WBC 7.4 RBC 2.47 L Hgb 8.3 L Hct 24.9 L MCV 100.8 H MCH 33.6 H MCHC 33.3 RDW 13.7 Plt Count 132 L MPV 9.8 Sodium Potassium Chloride Carbon Dioxide BUN Creatinine Est GFR ( Amer) Est GFR (Non-Af Amer) BUN/Creatinine Ratio Glucose POC Glucose 140 H 246 H Calculated Osmolality Calcium 07/02/17 07/02/17 04:33 07:22 WBC RBC Hgb Hct MCV MCH MCHC RDW Plt Count MPV Sodium 140 Potassium 4.2 Chloride 102 Carbon Dioxide 38 H BUN 17 Creatinine 0.65 L Est GFR ( Amer) > 60 Est GFR (Non-Af Amer) > 60 BUN/Creatinine Ratio 26 Glucose 145 H POC Glucose 139 H Calculated Osmolality 294 Calcium 8.5 L - ABG Interpretation ABG results: PT/INR, D-dimer PT 12.3 Seconds (9.4-12.1) H 06/30/17 22:35 Consult Discharge Plan - Plan Referrals: Moise Vo DO [Primary Care Provider] - 07/12/17 1:00 pm
--- NOTE | 2017-07-02 12:26 | Internal Med Progress Note ---
Date of Encounter: 07/02/17 Time of Encounter: 12:23 - Assessment and plan (1) Acute respiratory failure with hypoxia Current Visit: Yes Status: Acute Assessment and plan: Acute on chronic hypoxic respiratory failure secondary to acute COPD exacerbation due to possible sepsis from acute bacterial bronchitis and lung cancer Continue BIPap, oxygen, aerosols. 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 To lobe status post CyberKnife, RN ANGIOGRAPHY recurrence with multiple intracranial lesions Palliative Care consult defer chemo and radiation treatments to Oncology. Continue Decadron and Keppra for brain metastases. Qualifiers: Laterality: left Lung location: overlapping sites Qualified Code(s): C34.82 - Malignant neoplasm of overlapping sites of left bronchus and lung (3) DVT prophylaxis Current Visit: No Status: Acute Assessment and plan: 1. Heparin SQ. (4) Sepsis Current Visit: Yes Status: Acute Assessment and plan: Blood pressure was 88/65, heart rate was 122 IVF, antibiotics, and trend lactate per protocol. Hold lisinopril and Lasix Qualifiers: Sepsis type: sepsis due to unspecified organism Qualified Code(s): A41.9 - Sepsis, unspecified organism (5) Hypokalemia Current Visit: Yes Status: Acute Assessment and plan: Replete (6) Neuroendocrine carcinoma of lung Current Visit: No Status: Acute - Time Spent With Patient Total time spent is greater than 50% in coordination of care (as documented) at patient's floor/unit and/or counseling patient: - Subjective Interval history: No new complaints. Stable, complaining still of shortness of breath, denies any chest pain, no abdominal pain diarrhea or dysuria - Constitutional Vitals: Temp Pulse Resp BP Pulse Ox 98.7 F 80 26 98/61 93 07/02/17 11:10 07/02/17 12:11 07/02/17 12:09 07/02/17 11:10 07/02/17 12:09 General appearance: Present: cooperative, A&O X 3, pleasant Exam: - Head Head exam: Present: atraumatic, normocephalic - Eye Eye exam: Present: PERRL, conjuntiva pink, sclera anicteric Pupils: Present: PERRL - Neck Neck exam general surgery: Present: supple, trachea midline. Absent: lymphadenopathy - Respiratory Respiratory exam: Present: decreased breath sounds (Very diminished Breath sounds), CTAB. Absent: accessory muscle use, rales, rhonchi, wheezes - Cardiovascular Cardiovascular exam: Present: RRR, +S1, +S2. Absent: diastolic murmur, gallop, rubs, systolic murmur - GI/Abdominal GI/Abdominal exam: Present: normal bowel sounds, soft, no peritoneal signs. Absent: distended, tenderness - Extremities Exam Extremities exam: Present: warm, radial pulses palpable and symmetrical. Absent : calf tenderness, cyanotic, pedal edema - Neurological Exam Neurological exam: Present: CN II-XII intact, oriented X3, no focal deficits. Absent: pronater drift, facial droop, speech deficit - Skin Skin exam: Present: dry, intact Internal Medicine: Result - Labs CBC & Chem 7: 07/02/17 04:33 07/02/17 04:33 Labs: Short CBC 07/02/17 Range/Units 04:33 WBC 7.4 (4.3-11.1) K/mcL Hgb 8.3 L (12.9-16.9) g/dL Hct 24.9 L (37.5-50.1) % Plt Count 132 L (140-400) K/mcL BMP 07/02/17 04:33 Sodium 140 Potassium 4.2 Chloride 102 Carbon Dioxide 38 H BUN 17 Creatinine 0.65 L Glucose 145 H Calcium 8.5 L - ABG Interpretation ABG results: PT/INR, D-dimer PT 12.3 Seconds (9.4-12.1) H 06/30/17 22:35 Consult Discharge Plan - Plan Referrals: Moise Vo DO [Primary Care Provider] - 07/12/17 1:00 pm
--- NOTE | 2017-07-02 18:20 | Oncology Inp Progress Note ---
<Buster Salinas Jr - Last Filed: 07/02/17 18:23> Date of Encounter: 07/02/17 Time of Encounter: 17:40 (1) Lung cancer Current Visit: Yes Status: Chronic Assessment and plan: Patient with daughter and friend at bedside this evening. He is in no acute distress. Earlier today, PC team discussed goals of care, and the patient requests to continue full treatment course at this time. Patient pneumonia and sepsis has improved. He is able to eat and converse with no distress. He is on oxygen per [place] and able to clear secretions form his airway with cough. Dr Gill discussed seriousness of his prognosis. We discussed code status. After speaking with us, patient wishes to stay full code and see us at the cancer center after discharge. Patient understands prognosis. He wants to continue treatment and give himself a chance. After seeing his sister survive COPD and ventilator support, he fees he can do the same. He would like his daughter to make end of life care decisions if he was in the situation he could not be weened off of ventilator support. Dr Gill assessed patient with me today. Qualifiers: Laterality: left Lung location: overlapping sites Qualified Code(s): C34.82 - Malignant neoplasm of overlapping sites of left bronchus and lung (2) Pneumonia Current Visit: Yes Status: Acute Qualifiers: Pneumonia type: due to unspecified organism Laterality: unspecified laterality Lung location: unspecified part of lung Qualified Code(s): J18.9 - Pneumonia, unspecified organism Oncology: Subj Interval history: Patient awake and alert with daughter and friend at bedside. Breathing is better , on oxygen per NC, productive cough and phlegm through [place] suction. Denies pain or acute distress - Constitutional Vitals: Vital Signs Temp Pulse Resp BP Pulse Ox 07/02/17 16:08 28 94 07/02/17 16:03 98.8 F 76 22 98/60 95 07/02/17 15:49 80 07/02/17 15:46 82 22 93 07/02/17 12:11 80 07/02/17 12:09 82 26 93 07/02/17 11:17 18 93 07/02/17 11:10 98.7 F 79 23 98/61 93 07/02/17 11:01 79 23 93 07/02/17 11:00 93 07/02/17 07:41 18 96 05/11/18 07:19 98.2 F 71 21 112/68 96 07/02/17 04:12 21 94 07/02/17 03:20 73 07/02/17 03:09 98.6 F 72 24 108/68 96 07/01/17 23:35 20 88 07/01/17 23:25 89 07/01/17 23:03 98.2 F 85 20 101/64 98 07/01/17 20:15 28 93 07/01/17 20:01 93 07/01/17 20:00 98.3 F 93 22 100/60 97 07/01/17 18:20 22 100 Intake and Output 07/02/17 07/02/17 07/02/17 07:59 15:59 23:59 Intake Total 1005 / 1005 600 / 600 240 / 240 Output Total 325 / 325 Balance 1005 / 1005 275 / 275 240 / 240 Intake: IV Fluids 1005 / 1005 KCl 10 MEQ In 0.9 % Sodium 1005 / 1005 Chloride 1,000 ML @ 100 mls/hr IVC .Q10H3M [facility] Rx#:[id number] Oral 600 / 600 240 / 240 Output: Urine 325 / 325 Other: Meal Lunch Dinner Percent of Meal Consumed 20% 25% Stool Size Large Stool Consistency soft formed Stool Color Brown # Voids 1 # Bowel Movements 1 Weight 98.4 kg Blood Glucose* 139 153 110 Patient Weight 07/02/17 23:59 Weight 98.4 kg General appearance: cooperative, no acute distress - Head Head exam: Present: atraumatic, normocephalic - Eye Eye exam: Present: normal appearance Pupils: Present: PERRL - ENT ENT exam: Present: mucous membranes moist - Neck Neck exam: Present: full ROM - Respiratory Respiratory exam: Present: rhonchi - Cardiovascular Cardiovascular exam: Present: RRR - Extremities Exam Extremities exam: Present: full ROM, normal inspection - Neurological Exam Neurological exam: Present: alert, oriented X3, no focal deficits - Psychiatric Psychiatric exam: Present: normal affect, normal mood - Skin Skin exam: Present: dry, intact, warm Oncology: Obj Data - Labs CBC & Chem 7: 07/02/17 04:33 07/02/17 04:33 Labs: Laboratory Results - last 24 hr 07/01/17 07/01/17 07/01/17 07:18 16:59 20:07 WBC RBC Hgb Hct MCV MCH MCHC RDW Plt Count MPV Sodium Potassium Chloride Carbon Dioxide BUN Creatinine Est GFR ( Amer) Est GFR (Non-Af Amer) BUN/Creatinine Ratio Glucose POC Glucose 165 H 140 H 246 H Calculated Osmolality Calcium 07/02/17 07/02/17 07/02/17 04:33 04:33 07:22 WBC 7.4 RBC 2.47 L Hgb 8.3 L Hct 24.9 L MCV 100.8 H MCH 33.6 H MCHC 33.3 RDW 13.7 Plt Count 132 L MPV 9.8 Sodium 140 Potassium 4.2 Chloride 102 Carbon Dioxide 38 H BUN 17 Creatinine 0.65 L Est GFR ( Amer) > 60 Est GFR (Non-Af Amer) > 60 BUN/Creatinine Ratio 26 Glucose 145 H POC Glucose 139 H Calculated Osmolality 294 Calcium 8.5 L - ABG Interpretation ABG results: PT/INR, D-dimer PT 12.3 Seconds (9.4-12.1) H 06/30/17 22:35 Consult Discharge Plan - Plan Referrals: Moise Vo DO [Primary Care Provider] - 07/12/17 1:00 pm <Han Gill - Last Filed: 07/03/17 08:38> Date of Encounter: 07/03/17 - Constitutional Vitals: Vital Signs Temp Pulse Resp BP Pulse Ox 07/03/17 07:14 18 94 07/03/17 04:43 16 97 07/03/17 04:11 98.4 F 69 19 148/92 96 07/03/17 03:21 97.9 F 73 18 113/61 95 07/02/17 23:51 98.7 F 78 20 116/71 92 07/02/17 23:35 16 90 07/02/17 19:30 97.9 F 85 35 127/76 94 07/02/17 18:19 86 24 92 07/02/17 16:08 28 94 07/02/17 16:03 98.8 F 76 22 98/60 95 07/02/17 15:49 80 07/02/17 15:46 82 22 93 07/02/17 12:11 80 07/02/17 12:09 82 26 93 07/02/17 11:17 18 93 07/02/17 11:10 98.7 F 79 23 98/61 93 07/02/17 11:01 79 23 93 07/02/17 11:00 93 Intake and Output 07/02/17 07/03/17 07/03/17 16:59 00:59 08:59 Intake Total 700 / 700 340 / 340 1245 / 1245 Output Total 325 / 325 600 / 600 900 / 900 Balance 375 / 375 -260 / -260 345 / 345 Intake: IV Fluids 100 / 100 1005 / 1005 KCl 10 MEQ In 0.9 % Sodium 1005 / 1005 Chloride 1,000 ML @ 100 mls/hr IVC .Q10H3M [facility] Rx#:[id number] Levaquin Premix 750mg/150 mL 100 / 100 750 mg In 150 ml @ 100 mls/hr IVPB DAILY [facility] Rx#:[id number] Oral 600 / 600 340 / 340 240 / 240 Output: Urine 325 / 325 600 / 600 900 / 900 Other: Meal Lunch Dinner Percent of Meal Consumed 20% 25% Stool Size Large Moderate Moderate Stool Consistency soft formed formed formed Stool Characteristics Normal for Patient Normal for Patient Stool Color Brown Brown Brown # Bowel Movements 1 1 1 Blood Glucose* 110 141 Oncology: Obj Data - Labs CBC & Chem 7: 07/03/17 05:16 07/03/17 05:16 Labs: Laboratory Results - last 24 hr 07/02/17 07/02/17 07/02/17 07:22 11:12 16:07 WBC RBC Hgb Hct MCV MCH MCHC RDW Plt Count MPV Sodium Potassium Chloride Carbon Dioxide BUN Creatinine Est GFR ( Amer) Est GFR (Non-Af Amer) BUN/Creatinine Ratio Glucose POC Glucose 139 H 153 H 110 H Calculated Osmolality Calcium 07/03/17 07/03/17 05:16 05:16 WBC 7.9 RBC 2.42 L Hgb 8.3 L Hct 24.7 L MCV 102.1 H MCH 34.3 H MCHC 33.6 RDW 14.2 Plt Count 144 MPV 9.6 Sodium 140 Potassium 3.9 Chloride 104 Carbon Dioxide 30 H BUN 16 Creatinine 0.56 L Est GFR ( Amer) > 60 Est GFR (Non-Af Amer) > 60 BUN/Creatinine Ratio 29 H Glucose 125 H POC Glucose Calculated Osmolality 293 Calcium 8.5 L - ABG Interpretation ABG results: PT/INR, D-dimer PT 12.3 Seconds (9.4-12.1) H 06/30/17 22:35 - Attending Attestation I examined this patient and my medical decision-making was reviewed with the Advanced Practice Nurse. I agree with the documented findings, disposition and treatment plan as described except to the extent set forth below. Mr. Clemente has severe emphysema and has a COPD exacerbation. Prior review of his CT chest reveals minimal disease burden from his lung cancer which is not likely contributing. He has responded well to supportive medications and is improving. I again addressed code status as I have done in the clinic previously. 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 Intubation would likely be a lifeending event and meaningful survival/discharge from the hospital would be statistically low. He voiced understanding and wants dw his daughter who is present. This will likely be on ongoing discussion and no decision was made today. Appreciate the care by the hospitalists.
[2017-07-02] MEDS: Mirtazapine 15 MG TABLET PO SCH (20:15)
[2017-07-03] MEDS: Dexamethasone 4 MG/ML VIAL IVP SCH ×2 (04:14→11:26)
[2017-07-03] MEDS: Ipratropium/Albuterol Neb 3 ML IH SCH ×6 (04:39→23:33)
[2017-07-03 05:38] LABS: Hematocrit 24.7 % (37.5-50.1); Hemoglobin 8.3 g/dL (12.9-16.9); Mean Corpuscular HGB Conc 33.6 g/dL (31.6-35.5); Mean Corpuscular Hemoglobin 34.3 pg (28.0-33.3); Mean Corpuscular Volume 102.1 fL (83.0-100.0); Mean Platelet Volume 9.6 fL (9.4-12.4); Platelet Count 144 K/mcL (140-400); Red Blood Count 2.42 M/mcL (4.19-5.50); Red Cell Distribution Width 14.2 % (11.5-14.5)
[2017-07-03 05:58] LABS: BUN/Creatinine Ratio 29 (6-26); Blood Urea Nitrogen 16 mg/dL (8-23); Calcium 8.5 mg/dL (8.6-10.3); Carbon Dioxide 30 mEq/L (23-29); Chloride 104 mEq/L (98-107); Glucose 125 mg/dL (70-105); Osmolality,Calculated 293 (280-300); Potassium 3.9 mEq/L (3.5-5.1); Sodium 140 mEq/L (136-145); eGFR For African Americans > 60 (> 60); eGFR For Non-African Americans > 60 (> 60)
[2017-07-03] MEDS: *HR* Heparin 5,000 UNIT/ML VIAL SQ SCH ×2 (06:30→17:12)
[2017-07-03] MEDS: Budesonide/Formoterol 160/4.5 MDI IH SCH ×2 (07:13→20:01)
[2017-07-03] MEDS: Famotidine 20 MG TABLET PO SCH (08:31)
[2017-07-03] MEDS: levETIRAcetam 250 MG TABLET PO SCH ×2 (08:32→21:30)
[2017-07-03] MEDS: Levofloxacin 750 MG/150 ML 750 MG/150 ML BAG IVPB SCH (08:32)
[2017-07-03] MEDS: Fluticasone Propionate Nasal 50 MCG/SPRAY BOTTLE NS SCH (08:32)
--- NOTE | 2017-07-03 09:49 | Internal Med Progress Note ---
Date of Encounter: 07/03/17 Time of Encounter: 09:47 - Assessment and plan (1) Acute respiratory failure with hypoxia Current Visit: Yes Status: Acute Assessment and plan: Acute on chronic hypoxic respiratory failure secondary to acute COPD exacerbation due to possible sepsis from acute bacterial bronchitis and lung cancer Continue BIPap, oxygen, aerosols. 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 Continue Decadron and Keppra for brain metastases. Qualifiers: Laterality: left Lung location: overlapping sites Qualified Code(s): C34.82 - Malignant neoplasm of overlapping sites of left bronchus and lung (3) DVT prophylaxis Current Visit: No Status: Acute Assessment and plan: 1. Heparin SQ. (4) Sepsis Current Visit: Yes Status: Acute Assessment and plan: Blood pressure was 88/65, heart rate was 122 IVF, antibiotics, and trend lactate per protocol. Hold lisinopril and Lasix Qualifiers: Sepsis type: sepsis due to unspecified organism Qualified Code(s): A41.9 - Sepsis, unspecified organism (5) Hypokalemia Current Visit: Yes Status: Acute Assessment and plan: Replete (6) Neuroendocrine carcinoma of lung Current Visit: No Status: Acute - Time Spent With Patient Total time spent is greater than 50% in coordination of care (as documented) at patient's floor/unit and/or counseling patient: - Subjective Interval history: No new complaints. Stable, complaining of less shortness of breath, denies any chest pain, no abdominal pain diarrhea or dysuria - Constitutional Vitals: Temp Pulse Resp BP Pulse Ox 98.6 F 96 20 109/61 93 07/03/17 08:34 07/03/17 08:34 07/03/17 08:34 07/03/17 08:34 07/03/17 08:34 General appearance: Present: cooperative, A&O X 3, pleasant Exam: - Head Head exam: Present: atraumatic, normocephalic - Eye Eye exam: Present: PERRL, conjuntiva pink, sclera anicteric Pupils: Present: PERRL - Neck Neck exam general surgery: Present: supple, trachea midline. Absent: lymphadenopathy - Respiratory Respiratory exam: Present: decreased breath sounds (Very diminished Breath sounds), CTAB. Absent: accessory muscle use, rales, rhonchi, wheezes - Cardiovascular Cardiovascular exam: Present: RRR, +S1, +S2. Absent: diastolic murmur, gallop, rubs, systolic murmur - GI/Abdominal GI/Abdominal exam: Present: normal bowel sounds, soft, no peritoneal signs. Absent: distended, tenderness - Extremities Exam Extremities exam: Present: warm, radial pulses palpable and symmetrical. Absent : calf tenderness, cyanotic, pedal edema - Neurological Exam Neurological exam: Present: CN II-XII intact, oriented X3, no focal deficits. Absent: pronater drift, facial droop, speech deficit - Skin Skin exam: Present: dry, intact Internal Medicine: Result - Labs CBC & Chem 7: 07/03/17 05:16 07/03/17 05:16 Labs: Short CBC 07/03/17 Range/Units 05:16 WBC 7.9 (4.3-11.1) K/mcL Hgb 8.3 L (12.9-16.9) g/dL Hct 24.7 L (37.5-50.1) % Plt Count 144 (140-400) K/mcL BMP 07/03/17 05:16 Sodium 140 Potassium 3.9 Chloride 104 Carbon Dioxide 30 H BUN 16 Creatinine 0.56 L Glucose 125 H Calcium 8.5 L - ABG Interpretation ABG results: PT/INR, D-dimer PT 12.3 Seconds (9.4-12.1) H 06/30/17 22:35 Consult Discharge Plan - Plan Referrals: Moise Vo DO [Primary Care Provider] - 07/12/17 1:00 pm
--- NOTE | 2017-07-03 11:50 | Oncology Inp Progress Note ---
Date of Encounter: 07/03/17 Time of Encounter: 10:40 (1) Acute exacerbation of chronic obstructive airways disease Current Visit: Yes Status: Acute Assessment and plan: Improving with supportive measures and levaquin. Continue inhalers/nebs. Appreciate primary team's assistance. (2) Lung cancer Current Visit: Yes Status: Chronic Assessment and plan: Will arrange follow-up after discharge. He was previously on decadron taper, and his dose has been increased at admission. Will decrease decadron to 4 mg bid and restart taper. Will discuss goals of care at future visits; he desires to be full code for now despite my recommendations otherwise. This will be an ongoing discussion. We will otherwise sign off. Qualifiers: Laterality: left Lung location: overlapping sites Qualified Code(s): C34.82 - Malignant neoplasm of overlapping sites of left bronchus and lung Oncology: Subj Interval history: Had a better night. Rested well. He used bipap intermittently but tolerated oxygen without issue. Resting comfortably currently. Has been ambulatory. No fever, chills or symptoms of worsening infection. Eating well. Daugher at bedside. Has yet to discuss goals of care with family. - Constitutional Vitals: Vital Signs Temp Pulse Resp BP Pulse Ox 07/03/17 11:32 98 F 91 20 94/56 98 07/03/17 11:08 18 97 07/03/17 08:34 98.6 F 96 20 109/61 93 07/03/17 07:14 18 94 07/03/17 04:43 16 97 07/03/17 04:11 98.4 F 69 19 148/92 96 07/03/17 03:21 97.9 F 73 18 113/61 95 07/02/17 23:51 98.7 F 78 20 116/71 92 07/02/17 23:35 16 90 07/02/17 19:30 97.9 F 85 35 127/76 94 07/02/17 18:19 86 24 92 07/02/17 16:08 28 94 07/02/17 16:03 98.8 F 76 22 98/60 95 07/02/17 15:49 80 07/02/17 15:46 82 22 93 07/02/17 12:11 80 07/02/17 12:09 82 26 93 Intake and Output 07/03/17 07/03/1718 00:59 08:59 16:59 Intake Total 340 / 340 1365 / 1365 1000 / 1000 Output Total 600 / 600 900 / 900 Balance -260 / -260 465 / 465 1000 / 1000 Intake: IV Fluids 1005 / 1005 1000 / 1000 KCl 10 MEQ In 0.9 % Sodium 1005 / 1005 1000 / 1000 Chloride 1,000 ML @ 100 mls/hr IVC .Q10H3M [facility] Rx#:[id number] Oral 340 / 340 360 / 360 Output: Urine 600 / 600 900 / 900 Other: Meal Dinner Percent of Meal Consumed 25% Stool Size Moderate Moderate Stool Consistency formed formed Stool Characteristics Normal for Patient Normal for Patient Stool Color Brown Brown # Bowel Movements 1 1 Blood Glucose* 141 159 130 General appearance: cooperative, no acute distress - Head Head exam: Present: atraumatic, normal inspection, normocephalic - Eye Eye exam: Present: normal appearance, conjuntiva pink, sclera anicteric - ENT ENT exam: Present: mucous membranes moist, normal oropharynx - Neck Neck exam: Present: full ROM, normal inspection - Respiratory Respiratory exam: Present: decreased breath sounds, prolonged expiratory phase - Cardiovascular Cardiovascular exam: Present: RRR - GI/Abdominal GI/Abdominal exam: Present: normal bowel sounds, soft - Extremities Exam Extremities exam: Present: normal inspection - Neurological Exam Neurological exam: Present: alert, CN II-XII intact, oriented X3, no focal deficits Oncology: Obj Data - Labs CBC & Chem 7: 07/03/17 05:16 07/03/17 05:16 Labs: Laboratory Results - last 24 hr 07/02/17 07/02/17 07/03/17 11:12 16:07 05:16 WBC 7.9 RBC 2.42 L Hgb 8.3 L Hct 24.7 L MCV 102.1 H MCH 34.3 H MCHC 33.6 RDW 14.2 Plt Count 144 MPV 9.6 Sodium Potassium Chloride Carbon Dioxide BUN Creatinine Est GFR ( Amer) Est GFR (Non-Af Amer) BUN/Creatinine Ratio Glucose POC Glucose 153 H 110 H Calculated Osmolality Calcium 07/03/17 07/03/17 05:16 08:43 WBC RBC Hgb Hct MCV MCH MCHC RDW Plt Count MPV Sodium 140 Potassium 3.9 Chloride 104 Carbon Dioxide 30 H BUN 16 Creatinine 0.56 L Est GFR ( Amer) > 60 Est GFR (Non-Af Amer) > 60 BUN/Creatinine Ratio 29 H Glucose 125 H POC Glucose 159 H Calculated Osmolality 293 Calcium 8.5 L - ABG Interpretation ABG results: PT/INR, D-dimer PT 12.3 Seconds (9.4-12.1) H 06/30/17 22:35 Consult Discharge Plan - Plan Referrals: Moise Vo DO [Primary Care Provider] - 07/12/17 1:00 pm
--- NOTE | 2017-07-03 12:12 | Event Note ---
Date of Encounter: 07/03/17 Time of Encounter: 11:00 Patient resting quietly on arrival with patient's daughter and Nurse at bedside. Patient reports he has decided to remain FULL CODE and continue aggressive treatment with the cancer center. Patient denies pain, anxiety, nausea, or vomiting. Patient requested to complete MPOA; completed. Daughter reports patient planned discharge for Wednesday. Code status and goals of care established. Palliative care will sign off patient; patient informed. Please reconsult for any needs; thank you for this consult.
[2017-07-03] MEDS: Mirtazapine 15 MG TABLET PO SCH (21:30)
[2017-07-04] MEDS: Ipratropium/Albuterol Neb 3 ML IH SCH ×6 (03:24→23:40)
[2017-07-04] MEDS: *HR* Heparin 5,000 UNIT/ML VIAL SQ SCH ×2 (06:00→17:40)
[2017-07-04 07:15] LABS: Basophils % 0.3 %; Hematocrit 25.4 % (37.5-50.1); Hemoglobin 8.6 g/dL (12.9-16.9); Immature Granulocytes % 5.8 % (0-4); Lymphocytes # 1.5 K/mcL (0.6-4.6); Lymphocytes % 21.6 %; Mean Corpuscular HGB Conc 33.9 g/dL (31.6-35.5); Mean Corpuscular Hemoglobin 35.1 pg (28.0-33.3); Mean Corpuscular Volume 103.7 fL (83.0-100.0); Mean Platelet Volume 9.5 fL (9.4-12.4); Monocytes # 0.5 K/mcL (0.0-1.3); Monocytes % 7.2 %; Neutrophils # 4.4 K/mcL (1.6-8.9); Nucleated Red Blood Cells 1.9 /100 WBC (0); Platelet Count 172 K/mcL (140-400); Red Blood Count 2.45 M/mcL (4.19-5.50); Red Cell Distribution Width 14.6 % (11.5-14.5); Segmented Neutrophils % 65.1 %
[2017-07-04 07:23] LABS: BUN/Creatinine Ratio 32 (6-26); Blood Urea Nitrogen 16 mg/dL (8-23); Calcium 8.4 mg/dL (8.6-10.3); Carbon Dioxide 30 mEq/L (23-29); Chloride 106 mEq/L (98-107); Glucose 110 mg/dL (70-105); Osmolality,Calculated 294 (280-300); Potassium 4.1 mEq/L (3.5-5.1); Sodium 141 mEq/L (136-145); eGFR For African Americans > 60 (> 60); eGFR For Non-African Americans > 60 (> 60)
[2017-07-04] MEDS: Budesonide/Formoterol 160/4.5 MDI IH SCH ×2 (07:48→20:23)
[2017-07-04] MEDS: Levofloxacin 750 MG/150 ML 750 MG/150 ML BAG IVPB SCH (08:01)
[2017-07-04] MEDS: Famotidine 20 MG TABLET PO SCH (08:02)
[2017-07-04] MEDS: levETIRAcetam 250 MG TABLET PO SCH ×2 (08:02→21:35)
[2017-07-04] MEDS: Fluticasone Propionate Nasal 50 MCG/SPRAY BOTTLE NS SCH (08:03)
[2017-07-04 08:11] LABS: Macrocytosis Present (Not Present); Platelet Estimate Normal (Normal)
[2017-07-04 08:12] LABS: Basophilic Stippling 1+ (Not Present)
--- NOTE | 2017-07-04 14:17 | Internal Med Progress Note ---
Date of Encounter: 07/04/17 Time of Encounter: 14:14 - Assessment and plan (1) Acute respiratory failure with hypoxia Current Visit: Yes Status: Acute Assessment and plan: Acute on chronic hypoxic respiratory failure secondary to acute COPD exacerbation due to possible sepsis from acute bacterial bronchitis and lung cancer Continue BIPap, oxygen, aerosols. 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 To lobe status post CyberKnife, [employer] recurrence with multiple intracranial lesions Palliative Care consult defer chemo and radiation treatments to Oncology. Continue Decadron and Keppra for brain metastases. Qualifiers: Laterality: left Lung location: overlapping sites Qualified Code(s): C34.82 - Malignant neoplasm of overlapping sites of left bronchus and lung (3) DVT prophylaxis Current Visit: No Status: Acute Assessment and plan: 1. Heparin SQ. (4) Sepsis Current Visit: Yes Status: Acute Assessment and plan: Blood pressure was 88/65, heart rate was 122 improved does not need IVFs, Hold lisinopril and Lasix Qualifiers: Sepsis type: sepsis due to unspecified organism Qualified Code(s): A41.9 - Sepsis, unspecified organism (5) Hypokalemia Current Visit: Yes Status: Acute Assessment and plan: Replete (6) Neuroendocrine carcinoma of lung Current Visit: No Status: Acute - Time Spent With Patient Total time spent is greater than 50% in coordination of care (as documented) at patient's floor/unit and/or counseling patient: - Subjective Interval history: No complaints. Stable, feeling less shortness of breath, denies any chest pain, no abdominal pain diarrhea or dysuria - Constitutional Vitals: Temp Pulse Resp BP Pulse Ox 98.3 F 81 18 114/73 96 07/04/17 11:16 07/04/17 11:16 07/04/17 11:53 07/04/17 06:51 07/04/17 11:53 General appearance: Present: cooperative, A&O X 3, pleasant Exam: - Head Head exam: Present: atraumatic, normocephalic - Eye Eye exam: Present: PERRL, conjuntiva pink, sclera anicteric Pupils: Present: PERRL - Neck Neck exam general surgery: Present: supple, trachea midline. Absent: lymphadenopathy - Respiratory Respiratory exam: Present: decreased breath sounds (Very diminished Breath sounds), CTAB. Absent: accessory muscle use, rales, rhonchi, wheezes - Cardiovascular Cardiovascular exam: Present: RRR, +S1, +S2. Absent: diastolic murmur, gallop, rubs, systolic murmur - GI/Abdominal GI/Abdominal exam: Present: normal bowel sounds, soft, no peritoneal signs. Absent: distended, tenderness - Extremities Exam Extremities exam: Present: warm, radial pulses palpable and symmetrical. Absent : calf tenderness, cyanotic, pedal edema - Neurological Exam Neurological exam: Present: CN II-XII intact, oriented X3, no focal deficits. Absent: pronater drift, facial droop, speech deficit - Skin Skin exam: Present: dry, intact Internal Medicine: Result - Labs CBC & Chem 7: 07/04/17 06:48 07/04/17 06:48 Labs: Short CBC 07/04/17 Range/Units 06:48 WBC 6.7 (4.3-11.1) K/mcL Hgb 8.6 L (12.9-16.9) g/dL Hct 25.4 L (37.5-50.1) % Plt Count 172 (140-400) K/mcL Neutrophils # 4.4 (1.6-8.9) K/mcL BMP 07/04/17 06:48 Sodium 141 Potassium 4.1 Chloride 106 Carbon Dioxide 30 H BUN 16 Creatinine 0.50 L Glucose 110 H Calcium 8.4 L - ABG Interpretation ABG results: PT/INR, D-dimer PT 12.3 Seconds (9.4-12.1) H 06/30/17 22:35 Consult Discharge Plan - Plan Referrals: Moise Vo DO [Primary Care Provider] - 07/12/17 1:00 pm
[2017-07-04] MEDS: Mirtazapine 15 MG TABLET PO SCH (21:35)
[2017-07-05 03:22] LABS: Basophils % 0.6 %; Hematocrit 26.1 % (37.5-50.1); Hemoglobin 8.9 g/dL (12.9-16.9); Immature Granulocytes % 6.9 % (0-4); Lymphocytes # 1.3 K/mcL (0.6-4.6); Lymphocytes % 19.3 %; Mean Corpuscular HGB Conc 34.1 g/dL (31.6-35.5); Mean Corpuscular Hemoglobin 35.3 pg (28.0-33.3); Mean Corpuscular Volume 103.6 fL (83.0-100.0); Mean Platelet Volume 9.6 fL (9.4-12.4); Monocytes # 0.4 K/mcL (0.0-1.3); Monocytes % 6.5 %; Neutrophils # 4.5 K/mcL (1.6-8.9); Nucleated Red Blood Cells 2.1 /100 WBC (0); Platelet Count 182 K/mcL (140-400); Red Blood Count 2.52 M/mcL (4.19-5.50); Red Cell Distribution Width 14.7 % (11.5-14.5); Segmented Neutrophils % 66.7 %
[2017-07-05 03:40] LABS: BUN/Creatinine Ratio 28 (6-26); Blood Urea Nitrogen 15 mg/dL (8-23); Calcium 8.5 mg/dL (8.6-10.3); Carbon Dioxide 29 mEq/L (23-29); Chloride 107 mEq/L (98-107); Glucose 119 mg/dL (70-105); Osmolality,Calculated 292 (280-300); Potassium 4.2 mEq/L (3.5-5.1); Sodium 140 mEq/L (136-145); eGFR For African Americans > 60 (> 60); eGFR For Non-African Americans > 60 (> 60)
[2017-07-05 03:51] LABS: Platelet Estimate Normal (Normal); Polychromasia 1+ (Not Present)
[2017-07-05] MEDS: Ipratropium/Albuterol Neb 3 ML IH SCH ×6 (04:23→23:10)
[2017-07-05] MEDS: *HR* Heparin 5,000 UNIT/ML VIAL SQ SCH ×2 (05:47→17:09)
[2017-07-05] MEDS: Budesonide/Formoterol 160/4.5 MDI IH SCH ×2 (07:45→20:12)
[2017-07-05] MEDS: levETIRAcetam 250 MG TABLET PO SCH ×2 (08:09→20:30)
[2017-07-05] MEDS: Levofloxacin 750 MG/150 ML 750 MG/150 ML BAG IVPB SCH (08:09)
[2017-07-05] MEDS: Famotidine 20 MG TABLET PO SCH (08:09)
[2017-07-05] MEDS: Fluticasone Propionate Nasal 50 MCG/SPRAY BOTTLE NS SCH (08:10)
--- NOTE | 2017-07-05 12:27 | Oncology Inp Progress Note ---
Date of Encounter: 07/05/17 Time of Encounter: 11:30 (1) Neuroendocrine carcinoma of lung Current Visit: No Status: Acute Assessment and plan: Discussed goals of care and discharge planning with patient and patients daughter today at bedside following multiple conversations with palliative care team, primary team and treating oncologist Dr. Gill. Following further discussion regarding options for aggressive treatment approach which would include SNF placement or home health with PT/OT and further follow up with oncology versus less aggressive treatment approach with hospice care and not pursuing rehab/further oncologic care- patient and family wishing to discuss options for code status change and hospice care at this time. Patient states he has very little interest in pursuing rehabilitation and wishes for less aggressive treatment approach and symptom management with hospice care. I notified patients hospitalist team and discussed this with Dr. Taylor with palliative care team who has agreed to discuss further hospice options with patient today. Overall, patient appears to have limited disease burden secondary to his lung cancer as shown on his most previous CT chest, however, he does have significant end stage lung disease which appears to be the main cause of his symptoms along with intracranial metastatic disease. His poor performance status has made him a poor candidate for further systemic chemotherapy. Head CT- revealed surrounding vasogenic edema secondary to intracranial metastases, No midline shift or hydrocephalus. Continue decadron 4 mg BID and restart taper. Appreciate further discussions and recommendations per palliative care team. Please feel free to contact oncology in the meantime for further questions, otherwise, will sign off at this time. Oncology: Subj Interval history: Mr. Clemente is resting in bed with his daughter at bedside. Patients daughter requesting to speak with oncology. She has multiple questions regarding plans for discharge, HH PT/OT/Nursing referrals, qualification for home bipap and plan for discharge/goals of care. Patient reports his respiratory function is stabilized, he is requiring 4 L O@ per nasal cannula which is close to his baseline. He continues to report increased SOB. He has yet to get out of bed. - Constitutional Vitals: Vital Signs Temp Pulse Resp BP Pulse Ox 07/05/17 11:14 16 95 07/05/17 10:40 98.4 F 83 18 116/78 96 07/05/17 07:46 16 95 07/05/17 06:36 98.2 F 79 18 126/78 93 07/05/17 04:26 14 98 07/05/17 03:13 98 F 74 20 115/79 97 07/04/17 23:40 20 95 07/04/17 23:10 98.5 F 116 22 124/76 92 07/04/17 20:46 98.4 F 78 22 114/72 95 07/04/17 20:24 19 98 07/04/17 17:40 98.2 F 75 20 163/84 90 07/04/17 17:32 98.2 F 75 20 163/84 90 07/04/17 16:33 22 92 07/04/17 14:15 18 Intake and Output 07/04/17 07/05/17 07/05/17 23:59 07:59 15:59 Intake Total 1000 / 1000 1005 / 1005 240 / 240 Output Total 1200 / 1200 1900 / 1900 900 / 900 Balance -200 / -200 -895 / -895 -660 / -660 Intake: IV Fluids 1000 / 1000 1005 / 1005 KCl 10 MEQ In 0.9 % Sodium 1000 / 1000 1005 / 1005 Chloride 1,000 ML @ 100 mls/hr IVC .Q10H3M [facility] Rx#:[id number] Oral 0 / 0 240 / 240 Output: Urine 1200 / 1200 1900 / 1900 900 / 900 Other: Meal Breakfast Percent of Meal Consumed 100% # Voids 1 Weight 99.1 kg Blood Glucose* 107 102 129 Patient Weight 07/05/17 23:59 Weight 99.1 kg General appearance: cooperative, no acute distress, no febrile Exam: chronically ill appearing - Head Head exam: Present: atraumatic - ENT ENT exam: Present: mucous membranes moist - Respiratory Respiratory exam: Present: decreased breath sounds, wheezes. Absent: respiratory distress - Cardiovascular Cardiovascular exam: Present: RRR, +S1, +S2 - GI/Abdominal GI/Abdominal exam: Present: normal bowel sounds, soft. Absent: tenderness - Extremities Exam Extremities exam: Present: normal inspection. Absent: calf tenderness - Neurological Exam Neurological exam: Present: alert, oriented X3, no focal deficits, strengths equal and symetr throughout - Psychiatric Psychiatric exam: Present: normal affect, normal mood - Skin Skin exam: Present: dry, intact, normal color, warm Oncology: Obj Data - Labs CBC & Chem 7: 07/05/17 02:54 07/05/17 02:54 Labs: Laboratory Results - last 24 hr 07/03/17 07/04/17 07/04/17 20:12 06:54 11:20 WBC RBC Hgb Hct MCV MCH MCHC RDW Plt Count MPV Immature Gran % Seg Neutrophils % Lymphocytes % Monocytes % Eosinophils % Basophils % Neutrophils # Lymphocytes # Monocytes # Eosinophils # Basophils # Nucleated RBCs/100 WBC Platelet Estimate Polychromasia Sodium Potassium Chloride Carbon Dioxide BUN Creatinine Est GFR ( Amer) Est GFR (Non-Af Amer) BUN/Creatinine Ratio Glucose POC Glucose 115 H 114 H 121 H Calculated Osmolality Calcium 07/04/17 07/04/17 07/05/17 17:32 20:48 02:54 WBC 6.8 RBC 2.52 L Hgb 8.9 L Hct 26.1 L MCV 103.6 H MCH 35.3 H MCHC 34.1 RDW 14.7 H Plt Count 182 MPV 9.6 Immature Gran % 6.9 H Seg Neutrophils % 66.7 Lymphocytes % 19.3 Monocytes % 6.5 Eosinophils % 0.0 Basophils % 0.6 Neutrophils # 4.5 Lymphocytes # 1.3 Monocytes # 0.4 Eosinophils # 0.0 Basophils # 0.0 Nucleated RBCs/100 WBC 2.1 H Platelet Estimate Normal Polychromasia 1+ A Sodium Potassium Chloride Carbon Dioxide BUN Creatinine Est GFR ( Amer) Est GFR (Non-Af Amer) BUN/Creatinine Ratio Glucose POC Glucose 118 H 107 H Calculated Osmolality Calcium 07/05/17 07/05/17 07/05/17 02:54 07:17 10:43 WBC RBC Hgb Hct MCV MCH MCHC RDW Plt Count MPV Immature Gran % Seg Neutrophils % Lymphocytes % Monocytes % Eosinophils % Basophils % Neutrophils # Lymphocytes # Monocytes # Eosinophils # Basophils # Nucleated RBCs/100 WBC Platelet Estimate Polychromasia Sodium 140 Potassium 4.2 Chloride 107 Carbon Dioxide 29 BUN 15 Creatinine 0.54 L Est GFR ( Amer) > 60 Est GFR (Non-Af Amer) > 60 BUN/Creatinine Ratio 28 H Glucose 119 H POC Glucose 102 H 129 H Calculated Osmolality 292 Calcium 8.5 L - ABG Interpretation ABG results: PT/INR, D-dimer PT 12.3 Seconds (9.4-12.1) H 06/30/17 22:35 Consult Discharge Plan - Plan Referrals: Moise Vo DO [Primary Care Provider] - 07/12/17 1:30 pm
--- NOTE | 2017-07-05 13:45 | Event Note ---
Date of Encounter: 07/05/17 Time of Encounter: 13:36 palliative care was requested to return to answer some questions for patient and family on a patient we had signed off on. questions about what hospice would and would not provide. timing for hospice and could the patient get bipap without hospice. I answered the questins and readdressed code status. after disucssion pt is now dnr cca short term intubation is ok (daughter who is mpoa was present for discussion) Pt and daughter feel they would like to try to qualify ofr bipap and go home with home health care understanding that hospice care can start whenever they are ready. palliative has answered the patients questions and made changes on code status. I have informed hospitalist of need for bipap qualification and let sw know as well. palliative will remain signed off. Please reconsult if further discussions are needed
--- NOTE | 2017-07-05 14:37 | Internal Med Progress Note ---
Date of Encounter: 07/05/17 Time of Encounter: 14:35 - Assessment and plan (1) Acute respiratory failure with hypoxia Current Visit: Yes Status: Acute Assessment and plan: Acute on chronic hypoxic respiratory failure secondary to acute COPD exacerbation due to possible sepsis from acute bacterial bronchitis and lung cancer Continue BIPap, oxygen, aerosols. 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 Continue Decadron and Keppra for brain metastases. Qualifiers: Laterality: left Lung location: overlapping sites Qualified Code(s): C34.82 - Malignant neoplasm of overlapping sites of left bronchus and lung (3) DVT prophylaxis Current Visit: No Status: Acute Assessment and plan: 1. Heparin SQ. (4) Sepsis Current Visit: Yes Status: Acute Assessment and plan: Blood pressure was 88/65, heart rate was 122 improved does not need IVFs, Hold lisinopril and Lasix Qualifiers: Sepsis type: sepsis due to unspecified organism Qualified Code(s): A41.9 - Sepsis, unspecified organism (5) Hypokalemia Current Visit: Yes Status: Acute Assessment and plan: Replete (6) Neuroendocrine carcinoma of lung Current Visit: No Status: Acute - Time Spent With Patient Total time spent is greater than 50% in coordination of care (as documented) at patient's floor/unit and/or counseling patient: - Subjective Interval history: Patient and patient's daughter requesting to be evaluated by PT. Stable, feeling less shortness of breath, denies any chest pain, no abdominal pain diarrhea or dysuria - Constitutional Vitals: Temp Pulse Resp BP Pulse Ox 98.4 F 83 16 116/78 95 07/05/17 10:40 07/05/17 10:40 07/05/17 11:14 07/05/17 10:40 07/05/17 11:14 General appearance: Present: cooperative, A&O X 3, pleasant Exam: - Head Head exam: Present: atraumatic, normocephalic - Eye Eye exam: Present: PERRL, conjuntiva pink, sclera anicteric Pupils: Present: PERRL - Neck Neck exam general surgery: Present: supple, trachea midline. Absent: lymphadenopathy - Respiratory Respiratory exam: Present: decreased breath sounds (Very diminished Breath sounds), CTAB. Absent: accessory muscle use, rales, rhonchi, wheezes - Cardiovascular Cardiovascular exam: Present: RRR, +S1, +S2. Absent: diastolic murmur, gallop, rubs, systolic murmur - GI/Abdominal GI/Abdominal exam: Present: normal bowel sounds, soft, no peritoneal signs. Absent: distended, tenderness - Extremities Exam Extremities exam: Present: warm, radial pulses palpable and symmetrical. Absent : calf tenderness, cyanotic, pedal edema - Neurological Exam Neurological exam: Present: CN II-XII intact, oriented X3, no focal deficits. Absent: pronater drift, facial droop, speech deficit - Skin Skin exam: Present: dry, intact Internal Medicine: Result - Labs CBC & Chem 7: 07/05/17 02:54 07/05/17 02:54 Labs: Short CBC 07/05/17 Range/Units 02:54 WBC 6.8 (4.3-11.1) K/mcL Hgb 8.9 L (12.9-16.9) g/dL Hct 26.1 L (37.5-50.1) % Plt Count 182 (140-400) K/mcL Neutrophils # 4.5 (1.6-8.9) K/mcL BMP 07/05/17 02:54 Sodium 140 Potassium 4.2 Chloride 107 Carbon Dioxide 29 BUN 15 Creatinine 0.54 L Glucose 119 H Calcium 8.5 L - ABG Interpretation ABG results: PT/INR, D-dimer PT 12.3 Seconds (9.4-12.1) H 06/30/17 22:35 Consult Discharge Plan - Plan Referrals: Moise Vo DO [Primary Care Provider] - 07/12/17 1:30 pm
[2017-07-05] MEDS: Mirtazapine 15 MG TABLET PO SCH (20:30)
[2017-07-06] MEDS: Ipratropium/Albuterol Neb 3 ML IH SCH ×6 (03:55→23:10)
[2017-07-06] MEDS: *HR* Heparin 5,000 UNIT/ML VIAL SQ SCH ×2 (05:49→17:41)
[2017-07-06] MEDS: Budesonide/Formoterol 160/4.5 MDI IH SCH ×2 (07:55→20:45)
[2017-07-06] MEDS ORDERED: levoFLOXacin 750 MG TABLET PO SCH (09:00)
[2017-07-06] MEDS: Famotidine 20 MG TABLET PO SCH (09:36)
[2017-07-06] MEDS: levETIRAcetam 250 MG TABLET PO SCH ×2 (09:36→20:31)
[2017-07-06] MEDS: Fluticasone Propionate Nasal 50 MCG/SPRAY BOTTLE NS SCH (09:37)
--- NOTE | 2017-07-06 15:35 | Internal Med Progress Note ---
Date of Encounter: 07/06/17 Time of Encounter: 09:30 - Assessment and plan (1) Acute and chronic respiratory failure Current Visit: Yes Status: Acute Assessment and plan: Due to acute COPD and underlying lung cancer. Improving oxygen requirements, currently at 4 L/m via nasal cannula. Underwent overnight BiPAP qualification study, did not qualify for BiPAP. Qualifiers: Respiratory failure complication: hypoxia Qualified Code(s): J96.21 - Acute and chronic respiratory failure with hypoxia (2) Acute exacerbation of chronic obstructive airways disease Current Visit: Yes Status: Acute Assessment and plan: Improving slowly. Continue oral steroids, will complete a 7 day course of antibiotics with Levaquin. Continue when necessary bronchodilators, ICS/LABA, supplemental oxygen. Telemetry monitoring. PT/OT recommendations noted, recommend ECF placement. Discussed with patient and his daughter, declined placement, wishes to go home with home health services. (3) Neuroendocrine carcinoma of lung Current Visit: Yes Status: Chronic Assessment and plan: Oncology recommendations noted. Patient will follow-up as outpatient for continuing chemotherapy/radiation. Palliative care has been on board, patient is currently not ready for hospice although he does qualify when desired. CODE STATUS changed to DNR comfort care arrest, short-term intubation is okay. (4) DVT prophylaxis Current Visit: Yes Status: Acute (5) Sepsis Current Visit: Yes Status: Ruled-out Assessment and plan: Tachycardia and tachypnea likely related to acute COPD and bronchitis. Qualifiers: Sepsis type: sepsis due to unspecified organism Qualified Code(s): A41.9 - Sepsis, unspecified organism (6) Hypokalemia Current Visit: Yes Status: Resolved - Time Spent With Patient Total time spent is greater than 50% in coordination of care (as documented) at patient's floor/unit and/or counseling patient: - Subjective Interval history: Patient has generalized weakness but states shortness of breath and cough have improved since admission. He is able to bring up more mucus. No nausea, vomiting, chest or abdominal pain. He does have chronic constipation. Patient is hard of hearing, history is obtained with the help of his daughter at bedside. - Constitutional Vitals: Temp Pulse Resp BP Pulse Ox 98.6 F 82 19 135/75 96 07/06/17 13:35 07/06/17 13:35 07/06/17 13:35 07/06/17 13:35 07/06/17 13:35 General appearance: Present: cooperative, A&O X 3, answers questions appropriately - Respiratory Respiratory exam: Present: decreased breath sounds (B/L decreased air entry), CTAB. Absent: accessory muscle use, rales, rhonchi, wheezes - Cardiovascular Cardiovascular exam: Present: RRR, +S1, +S2. Absent: diastolic murmur, gallop, rubs, systolic murmur - GI/Abdominal GI/Abdominal exam: Present: normal bowel sounds, soft (obese), no peritoneal signs. Absent: distended, tenderness - Extremities Exam Extremities exam: Present: full ROM, pedal edema, warm, radial pulses palpable and symmetrical. Absent: calf tenderness, cyanotic - Neurological Exam Neurological exam: Present: CN II-XII intact, oriented X3, no focal deficits ( generalized decrease in motor power B/L). Absent: pronater drift, facial droop , speech deficit Internal Medicine: Result - Labs CBC & Chem 7: 07/05/17 02:54 07/05/17 02:54 - ABG Interpretation ABG results: PT/INR, D-dimer PT 12.3 Seconds (9.4-12.1) H 06/30/17 22:35 - VTE Documentation of Mechanical Device: Graduated compression elastic hosiery Consult Discharge Plan - Plan Referrals: Moise Vo DO [Primary Care Provider] - 07/12/17 1:30 pm
[2017-07-06] MEDS: Mirtazapine 15 MG TABLET PO SCH (20:31)
--- NOTE | 2017-07-06 21:06 | Oncology Inp Progress Note ---
Date of Encounter: 07/06/17 Time of Encounter: 18:00 (1) Acute exacerbation of chronic obstructive airways disease Current Visit: Yes Status: Acute Assessment and plan: Improving with supportive measures. Levaquin discontinued. Continue inhalers/ nebs. Appreciate primary team's assistance. Appears to be nearing baseline (2) Lung cancer Current Visit: Yes Status: Chronic Assessment and plan: Appreciate palliative care assistance with difficult situation. Discussed with the patient that in his current clinical state, further therapy cannot be recommended. In addition, it is highly likely his brain metastases will recur as the next site of disease and therapy for this will be exceedingly limited in most scenarios. He voiced understanding. We then discussed his desire to proceed home. He reiterates no desire for SNF/rehab. Home health services with PT is reasonable, but if his condition deteriorates, we discussed hospice care at home. He is open to this concept after our conversation. I think it would be reasonable to try home health/PT and transition to hospice if he is failing to make improvements. I will be available to help. He is DNR-CCA. Please do not hesitate to call at [phone]. Qualifiers: Laterality: left Lung location: overlapping sites Qualified Code(s): C34.82 - Malignant neoplasm of overlapping sites of left bronchus and lung Oncology: Subj Interval history: Making a slow and steady recovery. Still with SOB, but has markedly improved from admission. No fever or chills. Very debilitated and mobility limited, worse than from last week. Working with PT. Has agreed to proceed with DNR- CCA status. - Constitutional Vitals: Vital Signs Temp Pulse Resp BP Pulse Ox 07/06/17 19:37 98.3 F 77 18 116/76 97 07/06/17 16:16 18 95 07/06/17 15:41 97.7 F 74 21 121/58 97 07/06/17 13:35 98.6 F 82 19 135/75 96 07/06/17 11:48 19 95 07/06/17 11:44 98.4 F 79 19 98/70 95 07/06/17 08:13 16 97 07/06/17 07:16 98.0 F 69 20 114/72 96 07/06/17 04:30 98.1 F 68 20 120/73 95 07/06/17 03:55 16 97 07/05/17 23:46 98.6 F 75 19 124/70 91 07/05/17 23:19 98 07/05/17 23:10 20 94 Intake and Output 07/06/17 07/06/17 07/07/17 08:59 16:59 00:59 Intake Total 1190 / 1190 Output Total 950 / 950 250 / 250 Balance -950 / -950 940 / 940 Intake: IV Fluids 950 / 950 KCl 10 MEQ In 0.9 % Sodium 950 / 950 Chloride 1,000 ML @ 100 mls/hr IVC .Q10H3M [facility] Rx#:[id number] Oral 240 / 240 Output: Urine 950 / 950 250 / 250 Other: Meal Lunch Dinner Percent of Meal Consumed 100% 20% Blood Glucose* 132 105 119 General appearance: cooperative, no acute distress, obese - Head Head exam: Present: atraumatic, normal inspection, normocephalic - Eye Eye exam: Present: normal appearance, conjuntiva pink - ENT ENT exam: Present: mucous membranes moist, normal oropharynx - Neck Neck exam: Present: full ROM, normal inspection - Respiratory Respiratory exam: Present: decreased breath sounds, prolonged expiratory phase, rhonchi - Cardiovascular Cardiovascular exam: Present: RRR - GI/Abdominal GI/Abdominal exam: Present: normal bowel sounds, soft - Extremities Exam Extremities exam: Present: normal inspection - Neurological Exam Neurological exam: Present: alert, CN II-XII intact, oriented X3, no focal deficits Oncology: Obj Data - Labs CBC & Chem 7: 07/05/17 02:54 07/05/17 02:54 Labs: Laboratory Results - last 24 hr 07/05/17 07/06/17 07/06/17 19:57 07:13 11:43 POC Glucose 117 H 132 H 91 07/06/17 15:45 POC Glucose 105 H - ABG Interpretation ABG results: PT/INR, D-dimer PT 12.3 Seconds (9.4-12.1) H 06/30/17 22:35 Consult Discharge Plan - Plan Referrals: Moise Vo DO [Primary Care Provider] - 07/12/17 1:30 pm
[2017-07-07] MEDS: Ipratropium/Albuterol Neb 3 ML IH SCH ×6 (04:24→23:07)
[2017-07-07] MEDS: *HR* Heparin 5,000 UNIT/ML VIAL SQ SCH ×2 (05:50→17:40)
[2017-07-07] MEDS: Budesonide/Formoterol 160/4.5 MDI IH SCH ×2 (07:48→20:28)
[2017-07-07] MEDS ORDERED: *HR* HYDROcodone/Acet 5/325 mg TABLET PO PRN (08:07)
[2017-07-07] MEDS: Famotidine 20 MG TABLET PO SCH (09:42)
[2017-07-07] MEDS: levETIRAcetam 250 MG TABLET PO SCH ×2 (09:42→20:46)
[2017-07-07] MEDS: Fluticasone Propionate Nasal 50 MCG/SPRAY BOTTLE NS SCH (11:49)
--- NOTE | 2017-07-07 16:27 | Internal Med Progress Note ---
Date of Encounter: 07/07/17 Time of Encounter: 11:15 - Assessment and plan (1) Acute and chronic respiratory failure Current Visit: Yes Status: Acute Assessment and plan: Due to acute COPD and underlying lung cancer. Improving oxygen requirements, currently at 4 L/m via nasal cannula. Patient needs to be re-qualified for this as he only uses 2 L/m at home. Pending overnight BiPAP qualification study on this oxygen. Qualifiers: Respiratory failure complication: hypoxia Qualified Code(s): J96.21 - Acute and chronic respiratory failure with hypoxia (2) Acute exacerbation of chronic obstructive airways disease Current Visit: Yes Status: Acute Assessment and plan: Improving slowly. Continue oral steroids, completed 7 day course of antibiotics with Levaquin. Continue when necessary bronchodilators, ICS/LABA, supplemental oxygen. Telemetry monitoring. PT/OT recommendations noted, recommend ECF placement. Discussed with patient and his daughter, declined placement, wishes to go home with home health services. (3) Neuroendocrine carcinoma of lung Current Visit: Yes Status: Chronic Assessment and plan: Oncology recommendations noted. Patient will follow-up as outpatient, do not recommend continuing chemotherapy/radiation. Palliative care has been on board, patient is currently not ready for hospice although he does qualify when desired. CODE STATUS changed to DNR comfort care arrest, short-term intubation is okay. (4) DVT prophylaxis Current Visit: Yes Status: Acute (5) Sepsis Current Visit: Yes Status: Ruled-out Qualifiers: Sepsis type: sepsis due to unspecified organism Qualified Code(s): A41.9 - Sepsis, unspecified organism (6) Hypokalemia Current Visit: Yes Status: Resolved - Time Spent With Patient Total time spent is greater than 50% in coordination of care (as documented) at patient's floor/unit and/or counseling patient: - Subjective Interval history: Reports no new complaints; continues to have generalized weakness and intermittent dyspnea; daughter at bedside reports that there has been an error during BiPAP study, it needs to be redone tonight; - Constitutional Vitals: Temp Pulse Resp BP Pulse Ox 98.4 F 77 20 113/75 96 07/07/17 16:04 07/07/17 16:04 07/07/17 16:04 07/07/17 16:04 07/07/17 16:04 General appearance: Present: cooperative, A&O X 3 (hard of hearing), answers questions appropriately - Respiratory Respiratory exam: Present: decreased breath sounds (B/l decreased air entry), CTAB. Absent: accessory muscle use, rales, rhonchi, wheezes - Cardiovascular Cardiovascular exam: Present: RRR, +S1, +S2. Absent: diastolic murmur, gallop, rubs, systolic murmur - GI/Abdominal GI/Abdominal exam: Present: normal bowel sounds, soft (obese), no peritoneal signs. Absent: distended, tenderness - Extremities Exam Extremities exam: Present: pedal edema, warm, radial pulses palpable and symmetrical. Absent: calf tenderness, cyanotic Internal Medicine: Result - Labs CBC & Chem 7: 07/05/17 02:54 07/05/17 02:54 - ABG Interpretation ABG results: PT/INR, D-dimer PT 12.3 Seconds (9.4-12.1) H 06/30/17 22:35 - VTE Documentation of Mechanical Device: Graduated compression elastic hosiery Consult Discharge Plan - Plan Referrals: Moise Vo DO [Primary Care Provider] - 07/12/17 1:30 pm
[2017-07-07] MEDS: Furosemide 40 MG TABLET PO SCH (17:40)
[2017-07-07] MEDS: Mirtazapine 15 MG TABLET PO SCH (20:45)
[2017-07-08] MEDS: Ipratropium/Albuterol Neb 3 ML IH SCH ×4 (03:37→15:05)
[2017-07-08] MEDS: *HR* Heparin 5,000 UNIT/ML VIAL SQ SCH (05:37)
[2017-07-08] MEDS: Budesonide/Formoterol 160/4.5 MDI IH SCH (07:52)
[2017-07-08] MEDS: Famotidine 20 MG TABLET PO SCH (08:28)
[2017-07-08] MEDS: levETIRAcetam 250 MG TABLET PO SCH (08:29)
[2017-07-08] MEDS: Fluticasone Propionate Nasal 50 MCG/SPRAY BOTTLE NS SCH (08:29)
[2017-07-08] MEDS: Furosemide 40 MG TABLET PO SCH ×2 (08:29→17:08)
--- NOTE | 2017-07-08 11:06 | Discharge Summary ---
- NOTES TO OUTPATIENT PROVIDER Notes to Outpatient Provider: Advanced COPD, on increasing O2 at 4L/min now Date of Encounter: 07/08/17 Time of Encounter: 11:03 - Discharge Diagnosis (1) Acute and chronic respiratory failure Priority: Primary Status: Acute Qualifiers: Respiratory failure complication: hypoxia Qualified Code(s): J96.21 - Acute and chronic respiratory failure with hypoxia (2) Acute exacerbation of chronic obstructive airways disease Priority: Primary Status: Acute (3) Neuroendocrine carcinoma of lung Priority: Secondary Status: Chronic (4) Sepsis Priority: Primary Status: Ruled-out Qualifiers: Sepsis type: sepsis due to unspecified organism Qualified Code(s): A41.9 - Sepsis, unspecified organism (5) Hypokalemia Priority: Primary Status: Resolved Hospital course: Mr. Clemente is a 66 year old male with the above medical problems, was admitted with worsening respiratory distress. He was treated for acute COPD with empiric IV antibiotics, IV steroids, bronchodilator nebs and supplemental O2 with intermittent NIPPV with BiPAP support. There was concern for sepsis due to tachycardia and tachypnea at presentation but no fever/leukocytosis; chest XRay showed no e/o- pneumonia and sepsis is ruled out. Given his underlying stage 4 gustavo cancer with neuroendocrine tumor, Palliative care and Oncology were consulted; no further chemo or radiation was recommended in his best interests; changed Code status to DNR-CCA but patient is agreeable to short term intubation; he does qualify for Hospice care but is not ready at this time. I had a [id number] encounter for his increasing O2 needs; he steadily required continuous supplemental O2 at 4L/min for the last few days, and will be qualified for increased amount of O2; he is mobile at home, requires portable O2; BiPAP qualification study was completed, he did not qualify for home BiPAP. He is medically stable for discharge with outpatient f/up, he will be discharged with [facility]. Discharge discussed with: patient, family, nurse - Time Spent with Patient Total time spent providing and/or coordinating discharge services: Greater than 30 minutes (45 min) - Discharge Medications Home Medications: Ipratropium/Albuterol Neb [Duoneb] 3 ml IH Q6HR #60 vial.neb 07/18/15 [Rx] Albuterol Sulfate [Ventolin Hfa] 2 puff IH Q4H PRN 09/17/16 [History] Budesonide/Formoterol 160/4.5 [Symbicort 160/4.5] 1 puff IH BID 09/17/16 [ History] Calcium Gluconate 1 tab PO DAILY 09/17/16 [History] Carvedilol [Coreg] 12.5 mg PO BID 09/17/16 [History] Citalopram Hydrobromide [Celexa] 40 mg PO DAILY 09/17/16 [History] Furosemide [Lasix] 80 mg PO BID 09/17/16 [History] Lisinopril 2.5 mg PO BID 09/17/16 [History] Lovastatin [Mevacor] 20 mg PO HS 09/17/16 [History] Multivitamin [Multivitamins] 1 each PO DAILY 09/17/16 [History] Potassium Chloride [Klor-Con 10] 20 meq PO DAILY 09/17/16 [History] Promethazine [Phenergan] 25 mg PO Q6HR PRN #60 tablet 09/17/16 [Rx] Fluticasone Propionate Nasal [Flonase] 50 mcg NS DAILY #1 bottle 12/30/16 [Rx] Mirtazapine [Remeron] 15 mg PO HS #90 tablet 04/29/17 [Rx] Ranitidine HCl [Zantac] 150 mg PO DAILY #90 tablet 04/29/17 [Rx] Dexamethasone [Decadron] 4 mg PO AD 06/10/17 [History] Docusate [Colace] 100 mg PO BID #60 capsule 06/10/17 [Rx] HYDROcodone/Acet 5/325 mg [[place] 5-325 mg] 1 tab PO Q4H PRN 30 Days #60 tab [Rx] LevETIRAcetam [Keppra] 500 mg PO BID 06/10/17 [History] Allergies/Adverse Reactions: 3 Allergy/AdvReac Type Severity Reaction Status Date / Time codeine Allergy Itching Verified 06/30/17 20:45 Date of admission: 06/30/17 21:31 Primary care physician: Erlin Fitzpatrick Consults: 07/01/17 13:30 Consult to Palliative Care [CONS] Routine Comment: Consulting Provider: Palliative Care Shari Reason for Consult: goals of care Call Completed: Yes 07/01/17 15:58 Consult to Oncology [CONS] Routine Consulting Provider: [facility] [place] Reason for Consult: prognosis Call Completed: Yes 07/04/17 14:13 Consult to Occupational Therapy [CONS] Routine Comment: Evaluate, develop and implement POC Reason for Consult: eval Does patient have active BEDREST order?: No Is patient medically & hemodynamically stable?: Yes Patient assessed for mobility or mobilized this visit?: Yes Consult to Physical Therapy [CONS] Routine Comment: Evaluate, develop and implement POC Reason for Consult: eval Does patient have active BEDREST order?: No Is patient medically & hemodynamically stable?: Yes Patient assessed for mobility or mobilized this visit?: Yes Consult to Horse Groomer [CONS] Routine Reason for SW Consult: placement Discharging clinician: Sharon Sinclair Anticipated date of discharge: 07/08/17 - Constitutional Vitals: Temp Pulse Resp BP Pulse Ox 98.0 F 74 18 121/81 98 07/08/17 07:12 07/08/17 07:12 07/08/17 07:53 07/08/17 07:12 07/08/17 07:53 General appearance: Present: cooperative, A&O X 3 (hard of hearing), answers questions appropriately - Cardiovascular Cardiovascular exam: Present: RRR, +S1, +S2. Absent: diastolic murmur, gallop, rubs, systolic murmur - Patient Status Disposition: Home Health Service Condition: Fair Functional capacity at discharge: uses cane/walker Overall status at discharge: patient is progressing back to baseline - Discharge Instructions Follow Up With: Moise Vo DO [Primary Care Provider] - 07/12/17 1:30 pm Additional Instructions: F/up with Oncology as scheduled - Diet and Activity Activity: as per physical therapy, wear oxygen at all times Diet: low fat, low cholesterol, low salt diet - VTE Documentation of Mechanical Device: Graduated compression elastic hosiery
[2017-07-08 11:10] VITALS: BP 111/77
--- NOTE | 2017-07-08 11:16 | Physician Discharge Referral ---
Home Health/Hosp Referral Info Transfer to: Home Health Attending Provider: Sharon Sinclair Provider in Charge Post Discharge: PCP - Diagnosis (1) Acute and chronic respiratory failure Priority: Primary Status: Acute (2) Acute exacerbation of chronic obstructive airways disease Priority: Primary Status: Acute (3) Neuroendocrine carcinoma of lung Priority: Secondary Status: Chronic (4) Sepsis Priority: Primary Status: Ruled-out (5) Hypokalemia Priority: Primary Status: Resolved - Respiratory Orders Oxygen / L per min (4L/min via [place]) Smoking Cessation: Smoking cessation has been advised. For more information, call the [place] Tobacco Quit Line at 5-198-SIXS-NOW. - Diet/Nutrition Diet/Nutrition Orders: Cardiac - Activity Activity Orders: Ambulate, Walker - Services Needed Following services are medically necessary services: Nursing, Physical Therapy, Occupational Therapy - Transfer Medications Home Medications: Ipratropium/Albuterol Neb [Duoneb] 3 ml IH Q6HR #60 vial.neb 07/18/15 [Rx] Albuterol Sulfate [Ventolin Hfa] 2 puff IH Q4H PRN 09/17/16 [History] Budesonide/Formoterol 160/4.5 [Symbicort 160/4.5] 1 puff IH BID 09/17/16 [ History] Calcium Gluconate 1 tab PO DAILY 09/17/16 [History] Carvedilol [Coreg] 12.5 mg PO BID 09/17/16 [History] Citalopram Hydrobromide [Celexa] 40 mg PO DAILY 09/17/16 [History] Furosemide [Lasix] 80 mg PO BID 09/17/16 [History] Lisinopril 2.5 mg PO BID 09/17/16 [History] Lovastatin [Mevacor] 20 mg PO HS 09/17/16 [History] Multivitamin [Multivitamins] 1 each PO DAILY 09/17/16 [History] Potassium Chloride [Klor-Con 10] 20 meq PO DAILY 09/17/16 [History] Promethazine [Phenergan] 25 mg PO Q6HR PRN #60 tablet 09/17/16 [Rx] Fluticasone Propionate Nasal [Flonase] 50 mcg NS DAILY #1 bottle 12/30/16 [Rx] Mirtazapine [Remeron] 15 mg PO HS #90 tablet 04/29/17 [Rx] Ranitidine HCl [Zantac] 150 mg PO DAILY #90 tablet 04/29/17 [Rx] Dexamethasone [Decadron] 4 mg PO AD 06/10/17 [History] Docusate [Colace] 100 mg PO BID #60 capsule 06/10/17 [Rx] HYDROcodone/Acet 5/325 mg [[place] 5-325 mg] 1 tab PO Q4H PRN 30 Days #60 tab [Rx] LevETIRAcetam [Keppra] 500 mg PO BID 06/10/17 [History] Allergies/Adverse Reactions: 3 Allergy/AdvReac Type Severity Reaction Status Date / Time codeine Allergy Itching Verified 06/30/17 20:45 Certification: Further, I certify that my clinical findings support that this patient is homebound (i.e. absences from home require considerable and taxing effort and are for medical reasons or adventist services or infrequently or short duration when for other reasons) because: Homebound Reason: Patient requires assistance of a person or device to safely leave home, Leaving home requires considerable and taxing effort due to condition, Severity of cardiac or pulmonary status limits activity tolerance Attestation: My signature below is to certify that this patient is under my care and that I, or nurse practitioner, or a physician's medical office receptionist assistant working with me, has a face-to -face encounter with this patient.
== END 2017-07-08 18:15 | disposition home health service (06) | DRG 180 ==
LOC: 2NNU 17:14 → EMEROO 17:14 → SUATTDRO 21:31 → 2NNU 22:23 → 2ANU 07-06 13:24
PROVIDERS: ADMIT Pediatrics; ATTEND Internal Medicine